=== PATIENT | female | born 1990 | race Two or more races ===

== ENCOUNTER → 2019-04-30 | Outpatient (REF) | payer OTHER ==
[2019-04-30 22:22] LABS: CHLAMYDIA DNA AMPLIFICATION NEGATIVE (NEGATIVE); GC DNA AMPLIFICATION NEGATIVE (NEGATIVE)
== END ==
LOC: M SFHCLERA 10:32
PROVIDERS: ATTEND Nurse Practitioner Family
DX: N89.8 Other specified noninflammatory disorders of vagina (principal)

== ENCOUNTER 2019-09-10 14:15 | Emergency (ER) | payer OTHER ==
[~2019-09-10] VITALS: Ht 157.5 cm; Wt 92.2 kg
[2019-09-10 14:15] VITALS: BP 129/73
[2019-09-10] MEDS ORDERED: IBUP-1114 PO (14:24)
[2019-09-10 17:20] LABS: BASO % 0.5 % (0.0-1.0); HEMATOCRIT 38.3 % (36.0-47.0); HEMOGLOBIN 11.7 g/dl (12.0-15.5); LYMPH # 2.2 10^3/uL (1.5-5.0); LYMPH % 38.2 % (24.0-44.0); MEAN CORPUSCULAR HEMOGLOBIN 23.6 pg (27.0-33.0); MEAN CORPUSCULAR HGB CONC 30.5 g/dl (32.0-36.5); MEAN CORPUSCULAR VOLUME 77.2 fl (80.0-96.0); MONO # 0.3 10^3/uL (0.0-0.8); MONO % 5.8 % (0.0-5.0); NEUTROPHILS # 3.1 10^3/uL (1.5-8.5); PLATELET COUNT, AUTOMATED 229 10^3/uL (150-450); RED BLOOD COUNT 4.96 10^6/uL (4.00-5.40); WHITE BLOOD COUNT 5.7 10^3/uL (4.0-10.0)
[2019-09-10 17:43] LABS: ERYTHROCYTE SEDIMENTATION RATE 11 mm/hr (0-20)
[2019-09-10 17:44] LABS: CK-MB VALUE MASS < 1.0 NG/ML (<3.6); CPK CREATINE PHOSPHOKINASE 101 U/L (26-192); MB/CK RELATIVE INDEX 0.99 (< OR =4); TROPONIN I < 0.02 NG/ML (< 0.10)
[2019-09-10 17:46] LABS: APPEARANCE, URINE HAZY (CLEAR); BACTERIA, URINE AUTO NEGATIVE (NEGATIVE); BILIRUBIN, URINE AUTO NEGATIVE (NEGATIVE); BLOOD, URINE BLOOD NEGATIVE (NEGATIVE); COLOR, URINE YELLOW (YELLOW); GLUCOSE, URINE (UA) AUTO NEGATIVE (NEGATIVE); KETONE, URINE AUTO NEGATIVE (NEGATIVE); LEUKOCYTE ESTERASE, URINE AUTO NEGATIVE (NEGATIVE); NITRITE, URINE AUTO NEGATIVE (NEGATIVE); PROTEIN, URINE AUTO NEGATIVE (NEGATIVE); RBC, URINE AUTO 2 /HPF (0-3); SPECIFIC GRAVITY URINE AUTO 1.012 (1.002-1.035); SQUAMOUS EPITHELIAL CELL UR AU 13 /HPF (0-6); UROBILINOGEN, URINE AUTO 0.2 mg/dL (0.0-2.0); WBC, URINE AUTO 1 /HPF (0-3)
[2019-09-10] MEDS ORDERED: NS 1,000 ML IV ONE (18:00)
[2019-09-10] MEDS ORDERED: KETOROLAC 30 MG/ML VIAL (J1885) IV ONE (18:00)
--- NOTE | 2019-09-10 18:13 | REP ---
PA and lateral chest: There are no comparisons. The lung escalante are clear. The cardiac size is normal. The izabela, mediastinum, and skeletal structures are unremarkable. Impression: Negative PA and lateral chest. Electronically Signed by Guille Narayan MD 09/10/2019 06:05 P
--- NOTE | 2019-09-10 20:06 | ECGEPIP ---
[facility] - ED Test Date: 2019-09-10 Pat Name: KEISHA BORJAS Department: Room: - Gender: Female Aircraft Refueler: : 1990 Requested By: Shawanda Wright Order Number: [id number] Reading MD: Pako Lam Measurements Intervals Nelson Rate: 67 P: 41 KS: 138 QRS: 66 QRSD: 86 T: 27 QT: 376 QTc: 398 Interpretive Statements SINUS RHYTHM NO PRIORS FOR COMPARISON Electronically Signed on 09-10-2019 20:05:49 EST by Pako Lam
== END 2019-09-10 20:15 | disposition home or self-care (01) ==
LOC: M ED 14:15
DX: R07.9 Chest pain, unspecified (principal); F41.9 Anxiety disorder, unspecified; R51 Headache; Z88.8 Allergy status to other drugs, medicaments and biological substances
CPT/HCPCS: 36415; 71046; 80047; 81001; 82550; 82553; 84484; 84702; 85025; 85652; 86140; 93005; 99284; J1885

== ENCOUNTER → 2019-10-13 | Outpatient (REF) | payer OTHER ==
[~2019-10-13] MED LIST: IBUP-1114 PO
[2019-10-14 13:08] LABS: CHLAMYDIA DNA AMPLIFICATION NEGATIVE (NEGATIVE); GC DNA AMPLIFICATION NEGATIVE (NEGATIVE)
== END ==
LOC: M SFHCLERA 19:51
PROVIDERS: ATTEND Nurse Practitioner Family
DX: N89.8 Other specified noninflammatory disorders of vagina (principal); R30.0 Dysuria
CPT/HCPCS: 81002; 81025; 87070; 87077; 87086; 87184; 87661; 87804; 96372; G0463; J0696

== ENCOUNTER → 2019-11-29 | Outpatient (CLI) | payer OTHER ==
--- NOTE | 2019-12-02 08:42 | SLEEPCENT ---
DATE OF PROCEDURE: 11/29/2019 ORDERED BY: MADIE Larios Nocturnal polysomnography was performed for evaluation of sleep physiology in this patient with a history of excessive somnolence, snoring, and nonrestorative sleep. 7 hours and 51 minutes of data were reviewed. There were 348 minutes of sleep identified. Sleep latency was normal at 8 minutes. Rapid eye movement (REM) latency was normal at 80 minutes. Sleep architecture was normal with four REM cycles. Overall sleep efficiency was 94.8%. The electrocardiogram showed a sinus rhythm with an average heart rate of 65 beats per minute. Rate ranged 55-80. Electroencephalogram (EEG) showed normal waveforms for awake and sleep. No focal events were identified. There were only five respiratory events identified of 10 seconds in duration or greater for an apnea-hypopnea index well within normal limits of 0.7. Snoring was noted particularly later in the study. Respiratory related arousals occurred 0.7 times per hour. There were no oxygen desaturations. The patient did display some limb activity but no trains of events. Limb movement arousal index was 7.7. IMPRESSION: Normal nocturnal polysomnography with snoring.
== END ==
LOC: M SLEEP 20:00
PROVIDERS: ATTEND Physician Assistant
DX: R06.83 Snoring (principal)

== ENCOUNTER → 2020-02-06 | Outpatient (CLI) | payer OTHER | LOC: M LABSMTC 14:03 | PROVIDERS: ATTEND Family Medicine | DX: Z03.818 Encounter for observation for suspected exposure to other biological agents ruled out (principal); Z11.59 Encounter for screening for other viral diseases | CPT/HCPCS: C9803; U0003 ==

== ENCOUNTER 2020-03-23 15:20 | Emergency (ER) | payer OTHER ==
[2020-03-23] MEDS ORDERED: KETOROLAC 30 MG/ML 1ML VIAL ONE (18:00)
[2020-03-23] MEDS ORDERED: ISOVUE-370 76% 100ML VIAL As Ordered ONE (18:06)
[2020-03-23] MEDS ORDERED: KETOROLAC 30 MG/ML 1ML VIAL As Ordered ONE (18:06)
[2020-04-20 16:07] LABS: BASO % 0.5 % (0.0-1.0); HEMATOCRIT 34.4 % (36.0-47.0); HEMOGLOBIN 10.3 g/dl (12.0-15.5); LYMPH # 2.1 10^3/uL (1.5-5.0); LYMPH % 32.9 % (24.0-44.0); MEAN CORPUSCULAR HEMOGLOBIN 23.7 pg (27.0-33.0); MEAN CORPUSCULAR HGB CONC 29.9 g/dl (32.0-36.5); MEAN CORPUSCULAR VOLUME 79.1 fl (80.0-96.0); MONO # 0.5 10^3/uL (0.0-0.8); MONO % 7.4 % (0.0-5.0); NEUTROPHILS # 3.8 10^3/uL (1.5-8.5); NEUTROPHILS % 58.9 % (36.0-66.0); PLATELET COUNT, AUTOMATED 212 10^3/uL (150-450); RED BLOOD COUNT 4.35 10^6/uL (4.00-5.40); WHITE BLOOD COUNT 6.4 10^3/uL (4.0-10.0)
[2020-05-05 07:48] LABS: ALBUMIN 3.8 GM/DL (3.2-5.2); ALT/SGPT 19 U/L (12-78); BILIRUBIN,DIRECT < 0.1 MG/DL (0.0-0.2); BILIRUBIN,TOTAL 0.3 MG/DL (0.2-1.0); BLOOD UREA NITROGEN 12 MG/DL (7-18); CALCIUM LEVEL 8.5 MG/DL (8.5-10.1); CARBON DIOXIDE LEVEL 30 MEQ/L (21-32); CHLORIDE LEVEL 106 MEQ/L (98-107); CREATININE FOR GFR 0.67 MG/DL (0.55-1.30); GLOMERULAR FILTRATION RATE > 60.0 (>60); GLUCOSE, FASTING 86 MG/DL (70-100); HCG, SERUM QUALITATIVE NEGATIVE (NEGATIVE); LIPASE 144 U/L (73-393); POTASSIUM SERUM 3.7 MEQ/L (3.5-5.1); SODIUM LEVEL 138 MEQ/L (136-145)
== END 2020-03-23 19:06 | disposition home or self-care (01) ==
LOC: M ED 15:20
DX: N83.202 Unspecified ovarian cyst, left side (principal); D64.9 Anemia, unspecified; M48.061 Spinal stenosis, lumbar region without neurogenic claudication; Z88.8 Allergy status to other drugs, medicaments and biological substances
CPT/HCPCS: 74177; 76856; 80048; 80076; 83690; 84703; 85025; 96374; 99284; J1885; Q9967

== ENCOUNTER 2020-05-28 15:40 | Emergency (ER) | payer OTHER ==
[~2020-05-28] VITALS: Ht 154.9 cm; Wt 81.3 kg
[2020-05-28] MEDS ORDERED: B-12100010 PO (15:48)
[2020-05-28] MEDS ORDERED: ASPIRIN 81 MG CHEW TABLET PO ONE (17:30)
[2020-05-28] MEDS ORDERED: NS 1,000 ML IV ONE (17:30)
--- NOTE | 2020-05-28 18:01 | REPVR ---
PROCEDURE INFORMATION: Exam: XR Chest, 1 View Exam date and time: 05/28/2020 5:46 PM Age: 30 years old Clinical indication: Chest pain TECHNIQUE: Imaging protocol: XR of the chest Views: Frontal portable sitting upright view of the chest. Abdominal shielding was used. COMPARISON: RI Chest, 2 view PA, Lat 09/10/2019 5:55 PM FINDINGS: Tubes, catheters and devices: EKG leads are present overlying the chest. Lungs: The lungs are clear bilaterally. The pulmonary vasculature is normal. Pleural space: No pleural effusion. No pneumothorax. Heart/Mediastinum: The heart is normal in size and contour. Mediastinum: Stable. Bones/joints: Stable. IMPRESSION: No acute cardiopulmonary abnormality identified. Electronically signed by: Michael Bryant On 05/28/2020 18:01:03 PM
[2020-05-28 18:13] LABS: BASO % 0.3 % (0.0-1.0); HEMATOCRIT 35.8 % (36.0-47.0); HEMOGLOBIN 10.7 g/dl (12.0-15.5); LYMPH # 1.9 10^3/uL (1.5-5.0); LYMPH % 28.4 % (24.0-44.0); MEAN CORPUSCULAR HEMOGLOBIN 23.1 pg (27.0-33.0); MEAN CORPUSCULAR HGB CONC 29.9 g/dl (32.0-36.5); MEAN CORPUSCULAR VOLUME 77.3 fl (80.0-96.0); MONO # 0.3 10^3/uL (0.0-0.8); NEUTROPHILS # 4.5 10^3/uL (1.5-8.5); PLATELET COUNT, AUTOMATED 233 10^3/uL (150-450); RED BLOOD COUNT 4.63 10^6/uL (4.00-5.40); WHITE BLOOD COUNT 6.8 10^3/uL (4.0-10.0)
[2020-05-28 18:29] LABS: INR 0.98; PROTHROMBIN TIME 13.2 SECONDS (12.5-14.3)
[2020-05-28 18:41] LABS: ALBUMIN 3.6 GM/DL (3.2-5.2); ALT/SGPT 20 U/L (12-78); BILIRUBIN,DIRECT 0.1 MG/DL (0.0-0.2); BILIRUBIN,TOTAL 0.2 MG/DL (0.2-1.0); BLOOD UREA NITROGEN 11 MG/DL (7-18); CALCIUM LEVEL 8.5 MG/DL (8.5-10.1); CARBON DIOXIDE LEVEL 25 MEQ/L (21-32); CHLORIDE LEVEL 109 MEQ/L (98-107); CK-MB VALUE MASS < 1.0 NG/ML (<3.6); CPK CREATINE PHOSPHOKINASE 72 U/L (26-192); CREATININE FOR GFR 0.62 MG/DL (0.55-1.30); GLOMERULAR FILTRATION RATE > 60.0 (>60); GLUCOSE, FASTING 76 MG/DL (70-100); MB/CK RELATIVE INDEX 1.39 (< OR =4); POTASSIUM SERUM 4.2 MEQ/L (3.5-5.1); SODIUM LEVEL 139 MEQ/L (136-145); TOTAL PROTEIN 7.6 GM/DL (6.4-8.2); TROPONIN I < 0.02 NG/ML (< 0.10)
[2020-05-28 19:52] VITALS: BP 153/70
--- NOTE | 2020-05-29 06:42 | ECGEPIP ---
[facility] - ED Test Date: 2020-05-28 Pat Name: KEISHA BORJAS Department: Room: - Gender: Female Catering And Events Manager: jaison : 1990 Requested By: JHONATAN Juárez Order Number: [id number] Reading MD: Pako Lam Measurements Intervals Stella Rate: 73 P: 48 MI: 142 QRS: 61 QRSD: 86 T: 28 QT: 384 QTc: 425 Interpretive Statements SINUS RHYTHM POOR R WAVE PROGRESSION SIMILAR TO 09/10/19 Electronically Signed on 05-29-2020 6:42:11 EDT by Pako Lam
== END 2020-05-28 19:54 | disposition home or self-care (01) ==
LOC: M ED 15:40
DX: R00.2 Palpitations (principal); R25.2 Cramp and spasm; R20.2 Paresthesia of skin; R07.89 Other chest pain; G43.909 Migraine, unspecified, not intractable, without status migrainosus; Z88.8 Allergy status to other drugs, medicaments and biological substances; Z79.899 Other long term (current) drug therapy

== ENCOUNTER 2020-09-18 03:13 | Emergency (ER) | payer OTHER ==
[~2020-09-18] VITALS: Ht 154.9 cm; Wt 80.0 kg
[~2020-09-18 03:13] MED LIST changes: +B-12100010 PO
--- OUTSIDE RECORDS SUMMARY | 2020-09-18 03:19 | CCD ---
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 Active 294523255 Problem PCOS (polycystic ovarian syndrome) E28.2 Activ e [id number] ALLERGIES Allergen (clinical drug ingredient) Drug/Non Drug Allergy do cumented on EMR Reaction Allergy Type Onset Date Status diphenhydramine Benadryl([facility] Code:[address]-22) rash Drug Jimbo rgy Active ENCOUNTERS from 1990 to 2020-09-11 Encounter Location Date Provider Diagnosis [facility] [address] [place] [address] Aug, Luisa Fuchs IMMUNIZATIONS Vaccine Route Administration Date Status Influenza (18 yrs & older) Flublok IM Intramuscular Jun 09, 2019 Administered SOCIAL HISTORY Tobacco Use: Social History Observation Description Date Details (start date - stop date) Never Smoker Sex Assigned At : Social History Observation Description Sex Assigned At Unknown Education: Question Answer Notes Level of Education: College Audit Question Answer Notes Total Score: 0 Interpretation: Alcohol Education Language: Question Answer Notes Languages spoken: Danish Samaritan: Question Answer Notes Samaritan 33 None Sexual Hx: Question Answer Notes Had sex in the last 12 months (vaginal, oral, or anal)? Yes Have you ever had an STD? No with Men only Use protection? No Drug and Alcohol Question Answer Notes Total Score: 0 Interpretation: No problems reported Alcohol Screening: Question Answer Notes Did you have a drink containing alcohol in the past year? No Points 0 Interpretation Negative BMI Care Goal Follow-Up Question Answer Notes Above Normal BMI Follow-Up Dietary management educatio n, guidance, and counseling, Dietary needs education Tobacco Use: Question Answer Notes Are you a: never smoker REASON FOR REFERRAL No Information VITAL SIGNS No information MEDICATIONS Medication SIG (Take, Route, Frequency, Duration) Notes Start Da te End Date Status Letrozole 2.5 MG TAKE 2 TABLETS BY MOUTH ONCE DAILY 5 DAY S A MONTH Oral for 28 Active MetFORMIN HCl ER 500 MG TAKE 1 TABLET BY MOUTH ONCE DAILY INCREASE WEEKLY BY 500MG TO A MAX OF 2000 MG Oral for 30 Active PROCEDURES No Information RESULTS No Results REASON FOR VISIT note for work MEDICAL (GENERAL) HISTORY Type Description Date Surgical History 2 - c-sections Goals Section No Information Health Concerns No Information MEDICAL EQUIPMENT No Information MENTAL STATUS No Information FUNCTIONAL STATUS No Information ASSESSMENTS No Information PLAN OF TREATMENT No Information Insurance Providers Payer Name Payer Address Payer Phone Insured Name Patient Relati onship to Insured Coverage Start Date Coverage End Date [place] [phone] [phone] KEISHA BORJAS self
--- OUTSIDE RECORDS SUMMARY | 2020-09-18 03:19 | CCD | Continuity of Care Document ---
Author Author Mao HOLLOWAY M.D. Organization Unknown Address [address] [place] [address] Phone [phone] Problems Active Problems Provider Date Polycystic ovary syndrome Bharti Campoverde NP Onset: 020 Social History Type Date Description Comments Sex Unknown Tobacco Use Start: Unknown Never Smoked Cigarettes Tobacco Use Start: Unknown Never Smoked Cigars Tobacco Use Start: Unknown Never Smoked A Pipe Tobacco Use Start: Unknown Never Used Smokeless Tobacco ETOH Use Denies alcohol use Tobacco Use Start: Unknown Patient has never smoked Recreational Drug Use Denies Drug Use Allergies, Adverse Reactions, Alerts Active Allergies Reaction Severity Comments Date Benadryl Hives Moderate 05/22/2019 NKFA 05/22/2019 NKEA 05/22/2019 Medications Active Medications SIG Qnty Indications Ordering Provide r Date No Active Medications Unknown No Active Medications Unknown - 06/03/2020 History Medications Bactrim DS 800-160mg Tablets 1 tab by mouth twice a day x 3days. 6tabs Esperanza Alvarado 06/03/2020 - 07/06/2020 Pyridium 200mg Tablets 1 tab by mouth 3x/day x 2days 6tabs Ozzy Holloway M.D. 06/03/20 - 07/06/2020 Metronidazole 500mg Tablets one tab by mouth twice daily for 7 days 14tabs N76.0 Ozzy Holloway M.D. 04/01/2020 - 04/08/2020 Fluconazole 150mg Tablets take 1 by mouth once on days 1, 3 and 7 #3 3tabs B37.3 Esperanza Alvarado 04/01/2020 - 06/03/2020 Sprintec 28 0.25-35mg-mcg Tablets 1 by mouth every day 84tabs N83.202 Ozzy Holloway M.D. 03/24/20 20 - 06/03/2020 No Active Medications Unknown - 03/11/2020 Cleocin 2% Cream 1 applicator in vagina at bedtime x 7 days 40gm N76.0 Ozzy Holloway M.D. 020 - 03/24/2020 Immunizations CPT Code Status Date Vaccine Lot # [id number] Given 03/11/2020 HPV9 (Gardasil 9) Vaccine R0 11410 87055 Given 10/24/2019 HPV9 (Gardasil 9) Vaccine R0 [id number] 32128 Given 07/28/2019 HPV9 (Gardasil 9) Vaccine R0 22701 Vital Signs Date Vital Result Comment 07/06/2020 3:48pm BP Systolic 122 mmHg BP Diastolic 82 mmHg Heart Rate 80 /min Body Temperature 96.2 F Weight 179.00 lb Weight 81.194 kg Height 62 inches 5'2" BMI (Body Mass Index) 32.7 kg/m2 BSA (Body Surface Area) 1.82 m2 06/03/2020 3:45pm BP Systolic 116 mmHg BP Diastolic 66 mmHg Heart Rate 72 /min Body Temperature 97.7 F Weight 177.00 lb Weight 80.287 kg Height 62 inches 5'2" BMI (Body Mass Index) 32.4 kg/m2 BSA (Body Surface Area) 1.81 m2 Results Test Acquired Date Facility Test Result H/L Range Note Cuture Urine 06/03/2020 [facility] Culture Urine (SEE NOTE) 1, 2 Order 04/01/2020 In Office [facility] + clue, hyphae HCG Serum Qual 03/12/2020 [facility] HCG Serum Qual NEGATIVE Normal: Negative HCG Serum QL Reenter NEGATIVE Normal: Negative 3 Order 03/11/2020 [facility] Office [facility] ++clue 1 {SPECIMEN TYPE: RANDOM~.~.~ R31.9 2 _CULTURE URINE_ ^$798149 ^^170084 $$990283 ^^078209 $$900406 $$979437 $$164211 $$278076 $$551279 $$179774 $$815739 $$373399 $$858275 $$918701 $$931558 $$689084 $$430137 $$145353 $$000163 $$335919 $$042304 $$500334 $$070529 $$190652 $$062907 $$434899 $$442120 ^^073395 $$095971 $$701954 $$257178 -- Continued on next page -- Patient: INDIO Zamudio Order: [id number] Page 2 Culture: CULTURE URINE Status: Final -- Continued on next page -- Patient: INDIO Zamudio Order: [id number] Page 2 Culture: CULTURE URINE Status: Prelim $$[id number] $$[id number] REPORTED DATE/TIME: 06/09/2020 09:06 Culture: CULTURE URINE Status: Final Isolate 1 Lactobacillus species Flag: . . . . . . .4 10,000-25,000 colony forming units per m L Susceptibility not normally performed on this organism. Previous result entered on 06/06/2020 06:45 ET Specimen has been received and testing has been initiated. Urine Culture,Comprehensive: P1 Lactobacillus species P1 Test performed by: [facility] Ramón VALENTIN #: [id number] [address] [place] [address] [id number] [facility] [address] Shake Maker : Stewart Ruiz MD NPI #: Spring Setter : 06/07/20.XMT.SENT REF 06/09/20.XMT.SENT REF 3 { KIT LOT # [id number] ) { KIT EXP DATE 06.01.21 ) { PROCEDURAL CONTROL VALID ) Procedures Description No Information Available Medical Devices Description No Information Available Encounters Type Date Location Provider Dx Diagnosis Office Visit 07/06/2020 3:45p [facility] Ozzy Walter M.D. Z01.419 Encntr for adventure education teacher exam (general) (routine) w/o abn findings Assessments Date Code Description Provider 07/06/2020 Z01.419 Encounter for gyneco logical examination (general) (routine) without abnormal findings Ozzy Holloway M.D. 06/03/2020 R30.0 Dysuria Ozzy etienne M.D. 04/01/2020 N76.0 Acute vaginitis Bharti O'golden, PMO PROJECT MANAGER 04/01/2020 B37.3 Candidiasis of vulva and vagina Bharti O'golden, PMO PROJECT MANAGER 03/24/2020 N83.202 Unspecified ovarian cyst, left s alexander Bharti O'golden, PMO PROJECT MANAGER 03/11/2020 N76.0 Acute vaginitis Bharti O'golden, PMO PROJECT MANAGER 03/11/2020 R10.2 Pelvic and perineal pain Bharti O' golden, MACO Plan of Treatment 07/06/2020 - Ozzy Holloway M.D.* Z01.419 Encounter for gynecological examination (general) (routine) without abnormal findings * All * New Medication:* No Active Medications - * - * Comments:* Patient is to take letrozole 5 mg instead of 2.5 mg. She is to take metformin 500 mg for 7 days, increase it to 1000 mg and then to 1500 mg and to try to reach a maximum dose of 2000 mg, but we instructed her to gradually decrease her metformin if she cannot tolerate the dosage. * Follow up:* Follow up in a month. Functional Status Description No Information Available Mental Status Description No Information Available Referrals Description No Information Available
--- OUTSIDE RECORDS SUMMARY | 2020-09-18 03:19 | CCD | Continuity of Care Document ---
Author Author Mao HOLLOWAY M.D. Organization Unknown Address [address] [place] [address] Phone [phone] Problems Active Problems Provider Date Polycystic ovary [...] SIG Qnty Indications Ordering Provide r Date Metformin HCL ER 500mg Tablets ER 24HR 500mg by mouth daily increase weekly by 500mg to a max of 2000mg by mouth daily. 120tabs Ozzy Holloway M.D. 07/06/20 20 Letrozole 2.5mg Tablets 2 tab by mouth daily x 5 days/ month 10tabs Ozzy Holloway M.D. Provera 10mg Tablets 1 tab by mouth daily x 5days 5tabs Ozzy Holloway M.D. 07/06/20 20 History Medications No Active Medications Unknown - 07/06/2020 No Active Medications Unknown - 06/03/2020 Bactrim DS 800-160mg Tablets 1 tab by mouth twice a day x 3days. 6tabs Esperanza Alvarado 06/03/2020 - 07/06/2020 Pyridium 200mg Tablets 1 tab by mouth 3x/day x 2days 6tabs Ozzy Holloway M.D. 06/03/20 20 - 07/06/2020 Metronidazole 500mg Tablets one tab [...] at bedtime x 7 days 40gm N76.0 zOzy Holloway M.D. 020 - 03/24/2020 Immunizations CPT Code Status Date Vaccine Lot # [id number] Given 03/11/2020 HPV9 (Gardasil 9) Vaccine R0 01709 59080 Given 10/24/2019 HPV9 (Gardasil 9) Vaccine R0 72707 98134 Given 07/28/2019 HPV9 (Gardasil 9) Vaccine R0 75255 Vital Signs Date Vital Result Comment 09/02/2020 4:57pm BP Systolic 114 mmHg BP Diastolic 82 mmHg Heart Rate 73 /min Body Temperature 96.9 F Weight 185.00 lb Weight 83.916 kg Height 62 inches 5'2" BMI (Body Mass Index) 33.8 kg/m2 BSA (Body Surface Area) 1.85 m2 07/06/2020 3:48pm BP Systolic 122 mmHg BP Diastolic 82 mmHg Heart Rate 80 /min Body Temperature 96.2 F Weight 179.00 lb Weight 81.194 kg Height 62 inches 5'2" BMI (Body Mass Index) 32.7 kg/m2 BSA (Body Surface Area) 1.82 m2 Results Test Acquired Date Facility Test Result H/L Range Note HCG Serum Qual 08/04/2020 [facility] HCG Serum Qual NEGATIVE Normal: Negative 1 HCG Serum QL Reenter NEGATIVE Normal: Negative 2 Laboratory test finding 08/04/2020 [facility] Progesterone 2.6 ng/mL 3 Chlamydia GC/Am 07/06/2020 [facility] Source: Random Void 4 Chlamydia trachomatis,Tracee Negative Negative Neisseria gonorrhoeae,Tracee Negative Negative Cuture Urine 06/03/2020 [facility] Culture Urine (SEE NOTE) 5, 6 Order 04/01/2020 In Office [facility] [place] + clue, hyphae HCG Serum Qual 03/12/2020 [facility] HCG Serum Qual NEGATIVE Normal: Negative HCG Serum QL Reenter NEGATIVE Normal: Negative 7 Order 03/11/2020 [facility] ++clue 1 .~.~<DG1.3.1>Z01.419</DG1.3. 1><DG1.3.1>Z01.419</DG1.3.1> 2 { KIT LOT # [id number] ) { KIT EXP DATE 05.25.21 ) { PROCEDURAL CONTROL VALID ) 3 Follicular phase 0.1 - 0.9 Luteal phase 1.8 - 23.9 Ovulation phase 0.1 - 12.0 First trimester 11.0 - 44.3 Second trimester 25.4 - 83.3 Third trimester 58.7 - 214.0 Postmenopausal 0.0 - 0.1 4 {SOURCE: Random Void 5 {SPECIMEN TYPE: RANDOM~.~.~ R31.9 6 _CULTURE URINE_ ^$628356 ^^259822 $$230716 ^^702572 $$955360 $$565477 $$030548 $$340157 $$641316 $$643791 $$388712 $$706105 $$734078 $$208327 $$779593 $$159509 $$531552 $$137506 $$582749 $$476467 $$446751 $$737684 $$522954 $$309728 $$711820 $$930405 $$081330 ^^705814 $$047791 $$612193 $$486998 -- Continued on next page -- Patient: INDIO Zamudio Order: [id number] Page 2 Culture: CULTURE URINE Status: Final -- Continued on next page -- Patient: INDIO Zamudio Order: [id number] Page 2 Culture: CULTURE URINE Status: Prelim $$[id number] $$[id number] REPORTED DATE/TIME: 06/09/2020 09:06 Culture: CULTURE URINE Status: Final Isolate 1 Lactobacillus species Flag: . . . . . . .4 10,000-25,000 colony forming units per m L Susceptibility not normally performed on this organism. Previous result entered on 06/06/2020 06:45 ET Specimen has been received and testing has been initiated. Urine Culture,Comprehensive: P1 Lactobacillus species P1 Test performed by: [facility] #: [id number] [address] [place] [address] [id number] [facility] [address] Salvage Diver : Stewart Ruiz MD NPI #: Carpenter Wooden Tank Erecting : 06/07/20.0623.XMT.SENT REF 06/09/20.0933.XMT.SENT REF 7 { KIT LOT # [id number] ) { KIT EXP DATE 06.01.21 ) { PROCEDURAL CONTROL VALID ) Procedures Description No Information Available Medical Devices Description No Information Available Encounters Type Date Location Provider Dx Diagnosis Office Visit 09/02/2020 4:15p [facility] Ozzy Walter M.D. E28.2 Polycystic ovarian syndrome N97.9 Female infertility, unspecif ied Assessments Date Code Description Provider 09/02/2020 E28.2 Polycystic ovarian syndrome Mohit Holloway M.D. 09/02/2020 N97.9 Female infertility, unspecified Ozzy Holloway M.D. 07/06/2020 Z01.419 Encounter for gyneco logical examination (general) (routine) without abnormal findings Ozzy Holloway M.D. 06/03/2020 R30.0 Dysuria Ozzy etienne M.D. 04/01/2020 N76.0 Acute vaginitis Bharti O'golden, DISTRIBUTION MANAGER 04/01/2020 B37.3 Candidiasis of vulva and vagina Bharti O'golden, DISTRIBUTION MANAGER 03/24/2020 N83.202 Unspecified ovarian cyst, left s alexander Bharti O'golden, DISTRIBUTION MANAGER 03/11/2020 N76.0 Acute vaginitis Bharti O'golden, DISTRIBUTION MANAGER 03/11/2020 R10.2 Pelvic and perineal pain Bharti franks NP Plan of Treatment 09/02/2020 - Ozzy Holloway M.D.* E28.2 Polycystic ovarian syndrome * N97.9 Female infertility, unspecified * All * Comments:* Patient is advised to have intercourse from day #10 to day #16 and from day #20 to day #26 every day or every other day to increase the chances of her getting . She is to try and increase the metformin dose from 500 mg to 1000 mg, if she cannot tolerate the dosage she is to go back to 500 mg. Patient is to follow up in 3 months and if she is not by then we will consider hysterosalpingogram and semen analysis on her . * Follow up:* Follow up in 3 months. Functional Status Description No Information Available Mental Status Description No Information Available Referrals Description No Information Available
--- OUTSIDE RECORDS SUMMARY | 2020-09-18 03:19 | CCD | Continuity of Care Document ---
Author Author Mao HOLLOWAY M.D. Organization Unknown Address [address] [place] [address] Phone [phone] Problems Active Problems Provider Date Polycystic ovary [...] CPT Code Status Date Vaccine Lot # [id number] Given 03/11/2020 HPV9 (Gardasil 9) Vaccine R0 80186 95149 Given 10/24/2019 HPV9 (Gardasil 9) Vaccine R0 20740 90405 Given 07/28/2019 HPV9 (Gardasil 9) Vaccine R0 63428 Vital Signs Date Vital Result Comment 09/02/2020 [...] H/L Range Note HCG Serum Qual 08/04/2020 [facility] HCG Serum Qual NEGATIVE Normal: Negative 1 HCG Serum QL Reenter NEGATIVE Normal: Negative 2 Laboratory test finding 08/04/2020 [facility] Progesterone 2.6 ng/mL 3 Chlamydia GC/Am 07/06/2020 [facility] Source: Random Void 4 Chlamydia trachomatis,Tracee Negative Negative Neisseria gonorrhoeae,Tracee Negative Negative Cuture Urine 06/03/2020 [facility] Culture Urine (SEE NOTE) 5, 6 Order 04/01/2020 In Office [facility]house [facility] [place] + clue, hyphae HCG Serum Qual 03/12/2020 [facility] HCG Serum Qual NEGATIVE Normal: Negative HCG Serum QL Reenter NEGATIVE Normal: Negative 7 Order 03/11/2020 [facility] Office [facility] [place] ++clue 1 .~.~<DG1.3.1>Z01.419</DG1.3. 1><DG1.3.1>Z01.419</DG1.3.1> 2 { KIT LOT # [id number] ) { KIT EXP DATE 05.25.21 ) { PROCEDURAL CONTROL VALID ) 3 Follicular phase 0.1 - 0.9 Luteal phase 1.8 - 23.9 Ovulation phase 0.1 - 12.0 First trimester 11.0 - 44.3 Second trimester 25.4 - 83.3 Third trimester 58.7 - 214.0 Postmenopausal 0.0 - 0.1 4 {SOURCE: Random Void 5 {SPECIMEN TYPE: RANDOM~.~.~ R31.9 6 _CULTURE URINE_ ^$385584 ^^057996 $$887489 ^^582212 $$773088 $$378824 $$460021 $$143785 $$265086 $$988865 $$093804 $$890994 $$152206 $$563615 $$515792 $$906231 $$460252 $$752173 $$720145 $$772873 $$375277 $$994138 $$072604 $$912410 $$422191 $$208113 $$961946 ^^779648 $$394667 $$493138 $$294494 -- Continued on next page -- Patient: INDIO Zamudio Order: [id number] Page 2 Culture: CULTURE URINE Status: Final -- Continued on next page -- Patient: INDIO Zamudio Order: [id number] Page 2 Culture: CULTURE URINE Status: Prelim $$[id number] $$[id number] REPORTED DATE/TIME: 06/09/2020 09:06 Culture: CULTURE URINE Status: Final Isolate 1 Lactobacillus species Flag: . . . . . . .4 10,000-25,000 colony forming units per m L Susceptibility not normally performed on this organism. Previous result entered on 06/06/2020 06:45 ET Specimen has been received and testing has been initiated. Urine Culture,Comprehensive: P1 Lactobacillus species P1 Test performed by: [facility] #: [id number] [address] [place] [id number] [facility] [address] Wealth Management Manager : Stewart Ruiz MD NPI #: Business Analytics Faculty Member : 06/07/20.0623.XMT.SENT REF 06/09/20.0933.XMT.SENT REF 7 { KIT LOT # [id number] ) { KIT EXP DATE 06.01.21 ) [...] M.D. 04/01/2020 N76.0 Acute vaginitis Bharti O'golden, OPTIONS TRADER 04/01/2020 B37.3 Candidiasis of vulva and vagina Bharti O'golden, OPTIONS TRADER 03/24/2020 N83.202 Unspecified ovarian cyst, left s alexander Bharti O'golden, OPTIONS TRADER 03/11/2020 N76.0 Acute vaginitis Bharti O'golden, OPTIONS TRADER 03/11/2020 R10.2 Pelvic and perineal pain Bharti farnks NP Plan of Treatment 09/02/2020 - Ozzy [...]
--- OUTSIDE RECORDS SUMMARY | 2020-09-18 03:19 | CCD | Continuity of Care Document ---
Author Author Mao HOLLOWAY M.D. Organization Unknown Address [address] [place] [id number] Phone [phone] Problems Active Problems Provider Date Polycystic ovary [...] twice a day x 3days. 6tabs Esperanza lAvarado 06/03/2020 - 07/06/2020 Pyridium 200mg Tablets 1 [...] CPT Code Status Date Vaccine Lot # [id number] Given 03/11/2020 HPV9 (Gardasil 9) Vaccine R0 [id number] Given 10/24/2019 HPV9 (Gardasil 9) Vaccine R0 [id number] Given 07/28/2019 HPV9 (Gardasil 9) Vaccine R0 [id number] Vital Signs Date Vital Result Comment 07/06/2020 [...] H/L Range Note HCG Serum Qual 08/04/2020 [facility] HCG Serum Qual NEGATIVE Normal: Negative 1 HCG Serum QL Reenter NEGATIVE Normal: Negative 2 Laboratory test finding 08/04/2020 [facility] l Progesterone 2.6 ng/mL 3 Chlamydia GC/Am 07/06/2020 [facility] Source: Random Void 4 Chlamydia trachomatis,Tracee Negative Negative Neisseria gonorrhoeae,Tracee Negative Negative Cuture Urine 06/03/2020 [facility] Culture Urine (SEE NOTE) 5, 6 Order 04/01/2020 In Office [facility] [place] + clue, hyphae HCG Serum Qual 03/12/2020 [facility] HCG Serum Qual NEGATIVE Normal: Negative HCG Serum QL Reenter NEGATIVE Normal: Negative 7 Order 03/11/2020 In Office [facility] [place] ++clue 1 .~.~<DG1.3.1>Z01.419</DG1.3. 1><DG1.3.1>Z01.419</DG1.3.1> 2 { KIT LOT # [id number] ) { KIT EXP DATE 05.25.21 ) { PROCEDURAL CONTROL VALID ) 3 Follicular phase 0.1 - 0.9 Luteal phase 1.8 - 23.9 Ovulation phase 0.1 - 12.0 First trimester 11.0 - 44.3 Second trimester 25.4 - 83.3 Third trimester 58.7 - 214.0 Postmenopausal 0.0 - 0.1 4 {SOURCE: Random Void 5 {SPECIMEN TYPE: RANDOM~.~.~ R31.9 6 _CULTURE URINE_ ^$709596 ^^967433 $$015169 ^^614907 $$281544 $$554935 $$271284 $$967325 $$554883 $$536271 $$669657 $$381150 $$901777 $$379219 $$091655 $$375626 $$180918 $$534738 $$162961 $$625618 $$441363 $$634244 $$258338 $$776089 $$271980 $$242444 $$500189 ^^119950 $$559217 $$642872 $$348029 -- Continued on next page -- Patient: INDIO Zamudio Order: [id number] Page 2 Culture: CULTURE URINE Status: Final -- Continued on next page -- Patient: INDIO Zamudio Order: [id number] Page 2 Culture: CULTURE URINE Status: Prelim $$[id number] $$[id number] REPORTED DATE/TIME: 06/09/2020 09:06 Culture: CULTURE URINE Status: Final Isolate 1 Lactobacillus species Flag: . . . . . . .4 10,000-25,000 colony forming units per m L Susceptibility not normally performed on this organism. Previous result entered on 06/06/2020 06:45 ET Specimen has been received and testing has been initiated. Urine Culture,Comprehensive: P1 Lactobacillus species P1 Test performed by: [facility] #: [id number] [address] [place] [id number] [facility] [id number] [employer] : Stewart Ruiz MD NPI #: Trouble Locater : 06/07/20.23.XMT.SENT REF 06/09/2033.XMT.SENT REF 7 { KIT LOT # [id number] ) { KIT EXP DATE 06.01.21 ) { PROCEDURAL CONTROL VALID ) Procedures Description No Information Available Medical Devices Description No Information Available Encounters Description No Information Available Assessments Date Code Description Provider 07/06/2020 Z01.419 Encounter for gyneco logical examination (general) (routine) without abnormal findings Ozzy Holloway M.D. 06/03/2020 R30.0 Dysuria Ozzy etienne M.D. 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 Functional Status Description No Information Available Mental Status Description No Information Available Referrals Description No Information Available
--- OUTSIDE RECORDS SUMMARY | 2020-09-18 03:20 | CCD ---
Author Author [facility] Organization [facility] Address Unknown Phone Unavailable Care Team Providers Care Advertising Intern Name Role Phone Lizz PACHECO MD Unavailable Unavailable Lizz PACHECO MD Unavailable Unavailable Lizz PACHECO MD Unavailable Unavailable Lizz PACHECO MD Unavailable Unavailable Lizz PACHECO MD Unavailable Unavailable Lizz PACHECO MD Unavailable Unavailable Lizz PACHECO MD Unavailable Unavailable Lizz PACHECO MD Unavailable Unavailable Lizz PACHECO MD Unavailable Unavailable Lizz PACHECO MD Unavailable Unavailable Lizz PACHECO MD Unavailable Unavailable Lizz PACHECO MD Unavailable Unavailable Lizz PACHECO MD Unavailable Unavailable Lizz PACHECO MD Unavailable Unavailable Lizz PACHECO MD Unavailable Unavailable Lizz PACHECO MD Unavailable Unavailable Lizz PACHECO MD Unavailable Unavailable Lizz PACHECO MD Unavailable Unavailable Lizz PACHECO MD Unavailable Unavailable Lizz PACHECO MD Unavailable Unavailable Lizz PACHECO MD Unavailable Unavailable Lizz PACHECO MD Unavailable Unavailable Lizz PACHECO MD Unavailable Unavailable Lizz PACHECO MD Unavailable Unavailable Lizz PACHECO MD Unavailable Unavailable Lizz PACHECO MD Unavailable Unavailable Lizz PACHECO MD Unavailable Unavailable JEWEL, F AVTAR MD Unavailable Unavailable JEWEL, F AVTAR MD Unavailable Unavailable JEWEL, F AVTAR MD Unavailable Unavailable JEWEL, F AVTAR MD Unavailable Unavailable JEWEL, F AVTAR MD Unavailable Unavailable JEWEL, F AVTAR MD Unavailable Unavailable JEWEL, F AVTAR MD Unavailable Unavailable JEWEL, F AVTAR MD Unavailable Unavailable JEWEL, F AVTAR MD Unavailable Unavailable JEWEL, F AVTAR MD Unavailable Unavailable JEWEL, F AVTAR MD Unavailable Unavailable JEWEL, F AVTAR MD Unavailable Unavailable JEWEL, F AVTAR MD Unavailable Unavailable JEWEL, F AVTAR MD Unavailable Unavailable JEWEL, F AVTAR MD Unavailable Unavailable JEWEL, F AVTAR MD Unavailable Unavailable JEWEL, F AVTAR MD Unavailable Unavailable JEWEL, F AVTAR MD Unavailable Unavailable JEWEL, F AVTAR MD Unavailable Unavailable JEWEL, F AVTAR MD Unavailable Unavailable JEWEL, F AVTAR MD Unavailable Unavailable JEWEL, F AVTAR MD Unavailable Unavailable JEWEL, F AVTAR MD Unavailable Unavailable JEWEL, F AVTAR MD Unavailable Unavailable JEWEL, F AVTAR MD Unavailable Unavailable JEWEL, F AVTAR MD Unavailable Unavailable JEWEL, F AVTAR MD Unavailable Unavailable SAUCEDA, FORD YOVANA COUNTER INSTALLER Unavailable Unavailable SAUCEDA, FORD YOVANA COUNTER INSTALLER Unavailable Unavailable SAUCEDA, FORD YOVANA COUNTER INSTALLER Unavailable Unavailable SAUCEDA, FORD YOVANA COUNTER INSTALLER Unavailable Unavailable SAUCEDA, FORD YOVANA COUNTER INSTALLER Unavailable Unavailable SAUCEDA, FORD YOVANA COUNTER INSTALLER Unavailable Unavailable SAUCEDA, FORD YOVANA COUNTER INSTALLER Unavailable Unavailable SAUCEDA, FORD YOVANA COUNTER INSTALLER Unavailable Unavailable SAUCEDA, FORD YOVANA COUNTER INSTALLER Unavailable Unavailable SAUCEDA, FORD YOVANA COUNTER INSTALLER Unavailable Unavailable SAUCEDA, FORD YOVANA COUNTER INSTALLER Unavailable Unavailable SAUCEDA, FORD YOVANA COUNTER INSTALLER Unavailable Unavailable SAUCEDA, FORD YOVANA COUNTER INSTALLER Unavailable Unavailable SAUCEDA, FORD YOVANA COUNTER INSTALLER Unavailable Unavailable SAUCEDA, FORD YOVANA COUNTER INSTALLER Unavailable Unavailable SAUCEDA, FORD YOVANA COUNTER INSTALLER Unavailable Unavailable SAUCEDA, FORD YOVANA COUNTER INSTALLER Unavailable Unavailable SAUCEDA, FORD YOVANA COUNTER INSTALLER Unavailable Unavailable SAUCEDA, FORD YOVANA COUNTER INSTALLER Unavailable Unavailable SAUCEDA, FORD YOVANA COUNTER INSTALLER Unavailable Unavailable SAUCEDA, FORD YOVANA COUNTER INSTALLER Unavailable Unavailable SAUCEDA, FORD YOVANA COUNTER INSTALLER Unavailable Unavailable SAUCEDA, FORD YOVANA COUNTER INSTALLER Unavailable Unavailable Lizz PACHECO MD Unavailable Unavailable Lizz PACHECO MD Unavailable Unavailable Lizz PACHECO MD Unavailable Unavailable Lizz PACHECO MD Unavailable Unavailable Lizz PACHECO MD Unavailable Unavailable Lizz PACHECO MD Unavailable Unavailable Lizz PACHECO MD Unavailable Unavailable Lizz PACHECO MD Unavailable Unavailable Lizz PACHECO MD Unavailable Unavailable Lizz PACHECO MD Unavailable Unavailable Lizz PACHECO MD Unavailable Unavailable Lizz PACHECO MD Unavailable Unavailable Lizz PACHECO MD Unavailable Unavailable Lizz PACHECO MD Unavailable Unavailable Lizz PACHECO MD Unavailable Unavailable Lizz PACHECO MD Unavailable Unavailable Lizz PACHECO MD Unavailable Unavailable Lizz PACHECO MD Unavailable Unavailable Lizz PACHECO MD Unavailable Unavailable Lizz PACHECO MD Unavailable Unavailable Lizz PACHECO MD Unavailable Unavailable Lizz PACHECO MD Unavailable Unavailable Lizz PACHECO MD Unavailable Unavailable Lizz PACHECO MD Unavailable Unavailable Lizz PACHECO MD Unavailable Unavailable Lizz PACHECO MD Unavailable Unavailable Lizz PACHECO MD Unavailable Unavailable FINK, M NURA PA Unavailable Unavailable FINK, M NURA PA Unavailable Unavailable FINK, M NURA PA Unavailable Unavailable FINK, M NURA PA Unavailable Unavailable FINK, M NURA PA Unavailable Unavailable FINK, M NURA PA Unavailable Unavailable FINK, M NURA PA Unavailable Unavailable FINK, M NURA PA Unavailable Unavailable FINK, M NURA PA Unavailable Unavailable FINK, M NURA PA Unavailable Unavailable FINK, M NURA PA Unavailable Unavailable FINK, M NURA PA Unavailable Unavailable FINK, M NURA PA Unavailable Unavailable FINK, M NURA PA Unavailable Unavailable FINK, M NURA PA Unavailable Unavailable FINK, M NURA PA Unavailable Unavailable FINK, M NURA PA Unavailable Unavailable FINK, M NURA PA Unavailable Unavailable FINK, M NURA PA Unavailable Unavailable FINK, M NURA PA Unavailable Unavailable FINK, M NURA PA Unavailable Unavailable FINK, M NURA PA Unavailable Unavailable FINK, M NURA PA Unavailable Unavailable FINK, M NURA PA Unavailable Unavailable FINK, M NURA PA Unavailable Unavailable FINK, M NURA PA Unavailable Unavailable FINK, M NURA PA Unavailable Unavailable FINK, M NURA PA Unavailable Unavailable FINK, M NURA PA Unavailable Unavailable FINK, M NURA PA Unavailable Unavailable FINK, M NURA PA Unavailable Unavailable FINK, M NURA PA Unavailable Unavailable FINK, M NURA PA Unavailable Unavailable NO, PCP Unavailable Unavailable Re-disclosure Warning The records that you are about to access may contain information from federally-assisted alcohol or drug abuse programs. If such information is present, then the following federally mandated warning applies: This information has been disclosed to you from records protected by federal confidentiality rules (42 CFR part 2). The federal rules prohibit you from making any further disclosure of this information unless further disclosure is expressly permitted by the written consent of the person to whom it pertains or as otherwise permitted by 42 CFR part 2. A general authorization for the release of medical or other information is NOT sufficient for this purpose. The Federal rules restrict any use of the information to criminally investigate or prosecute any alcohol or drug abuse patient.The records that you are about to access may contain highly sensitive health information, the redisclosure of which is protected by Article 27-F of the [facility] Public Health law. If you continue you may have access to information: Regarding HIV / AIDS; Provided by facilities licensed or operated by the [facility] Office of Mental Health; or Provided by the [facility] Office for People With Developmental Disabilities. If such information is present, then the following [facility] mandated warning applies: This information has been disclosed to you from confidential records which are protected by state law. State law prohibits you from making any further disclosure of this information without the specific written consent of the person to whom it pertains, or as otherwise permitted by law. Any unauthorized further disclosure in violation of state law may result in a fine or long-term sentence or both. A general authorization for the release of medical or other information is NOT sufficient authorization for further disc losure. Allergies and Adverse Reactions Type Description Substance Reaction Status Data Source(s ) Drug allergy Benadryl Diphenhydramine rash Active eCW1 ([facility]) Encounters Encounter Providers Location Date Indications Data Source(s ) Unknown [address] [facility] [address] 09/09/2020 12:00:00 AM EST eCW1 ([facility]) Outpatient Attender: AVTAR HOLLOWAY MDConsultant: PCP NO 09/02/2020 03:55:00 PM EST - 09/02/2020 03:55:00 PM EST [facility] Outpatient Attender: AVTAR HOLLOWAY MD Family Practice 08/20 03:15:00 PM EST [facility] ([facility]) Outpatient Attender: AVTAR HOLLOWAY MDConsultant: PCP NO 08/04/2020 02:22:00 PM EST - 08/04/2020 03:22:00 PM EST [facility] Outpatient Attender: AVTAR HOLLOWAY MDConsultant: PCP NO 07/06/2020 03:46:00 PM EST - 07/06/2020 03:46:00 PM EST [facility] Outpatient Attender: AVTAR HOLLOWAY MD Family Practice 06/20 02:45:00 PM EST [facility] ([facility]) Outpatient Attender: AVTAR HOLLOWAY MDConsultant: PCP NO 06/03/2020 03:26:00 PM EDT - 06/03/2020 03:26:00 PM EDT [facility] Outpatient Attender: YOVANA PELAYOILL NPConsultant: PCP NO 04/01/2020 01:20:00 PM EDT - 04/01/2020 01:20:00 PM EDT [facility] Attender: YOVANA SAUCEDA NPConsultant: PCP NO 03/24/2020 03:42:00 PM EDT - 03/24/2020 03:42:00 PM EDT [facility] Outpatient Attender: YOVANA SAUCEDA NPConsultant: PCP NO 03/17/2020 04:24:00 PM EDT - 03/17/2020 05:24:00 PM EDT [facility] Outpatient Attender: YOVANA SAUCEDA NPConsultant: PCP NO 03/12/2020 03:14:00 PM EDT - 03/12/2020 03:14:00 PM EDT [facility] Out[facility] Attender: YOVANA SAUCEDA COUNTER INSTALLER Family Practice 03/11/2020 03 :30:00 PM EDT [facility] ([facility]) Outpatient Attender: YOVANA SAUCEDA NPConsultant: PCP NO 03/11/2020 03:11:00 PM EDT - 03/11/2020 03:11:00 PM EDT [facility] Outpatient Attender: YOVANA SAUCEDA COUNTER INSTALLER Family Practice 12/29/2019 09 :30:00 AM EDT [facility] ([facility]) Outpatient Attender: YOVANA SAUCEDA NPConsultant: PCP NO 12/29/2019 09:25:00 AM EDT - 12/29/2019 09:25:00 AM EDT [facility] Outpatient Attender: NURA Baraajs/Kaylan/Wenceslao/Aric dl 11/07/2019 10:30:00 AM EDT [facility] ([facility] ) Outpatient Attender: AVTAR HOLLOWAY MDConsultant: PCP NO 11/06/2019 02:59:00 PM EDT - 11/06/2019 02:59:00 PM EDT [facility] [address] [phone] 10/28/2019 12:00:00 AM EDT eCW1 ([facility]) Outpatient Attender: AVTAR HOLLOWAY MDConsultant: PCP NO 10/24/2019 03:00:00 PM EST - 10/24/2019 03:00:00 PM EST [facility] [address] [place] [phone] 10/13/2019 12:00:00 AM EST eCW1 ([facility]) [facility] [address] [place] [phone] 10/03/2019 12:00:00 AM EST eCW1 ([facility]) Outpatient 09/15/2019 01:48:00 PM EST [facility] Outpatient Attender: AVTAR HOLLOWAY MDConsultant: PCP NO 08/22/2019 09:43:00 AM EST - 08/22/2019 09:43:00 AM EST [facility] Outpatient Attender: AVTAR HOLLOWAY MD Family Practice 10/2019 08:45:00 AM EST [facility] ([facility]) Outpatient Attender: AVTAR HOLLOWAY MDConsultant: PCP NO 08/14/2019 03:44:00 PM EST - 08/14/2019 03:44:00 PM EST [facility] Outpatient Attender: AVTAR HOLLOWAY MD Family Practice 07/21 02:45:00 PM EST [facility] ([facility]) Outpatient Attender: AVTAR HOLLOWAY MDConsultant: PCP NO 08/08/2019 01:44:00 PM EST - 08/08/2019 01:44:00 PM EST [facility] Outpatient Attender: AVTAR HOLLOWAY MD Family Practice 07/21 12:45:00 PM EST [facility] ([facility]) Outpatient Attender: MATHEW PACHECO MDConsultant: PCP NO 07/28/2019 01:53:00 PM EST - 07/28/2019 01:53:00 PM EST [facility] Outpatient Attender: MATHEW PACHECO MD Family Practice 01:00:00 PM EST [facility] ([facility]) Outpatient Attender: AVTAR HOLLOWAY MDConsultant: PCP NO 07/21/2019 01:46:00 PM EST - 07/21/2019 01:46:00 PM EST [facility] Outpatient Attender: AVTAR HOLLOWAY MD Family Practice 09/2018 01:00:00 PM EST [facility] ([facility]) Outpatient Attender: AVTAR HOLLOWAY MDConsultant: PCP NO 07/16/2019 03:10:00 PM EST - 07/16/2019 03:10:00 PM EST [facility] Outpatient Attender: AVTAR HOLLOWAY MDConsultant: PCP NO 06/23/2019 09:38:00 AM EST - 06/23/2019 09:38:00 AM EST [facility] Immunizations Vaccine Date Status Description Data Source(s) HPV9 03/11/2020 10:55:00 AM EDT completed M [facility] ([facility]) HPV9 10/24/2019 07:43:00 AM EST completed [facility] ([facility]) HPV9 07/28/2019 01:17:00 PM EST completed [facility] ([facility]) Medications Medication Brand Name Start Date Product Form Dose Route Admi nistrative Instructions Pharmacy Instructions Status Indications Reaction Description Data Source(s) 24 HR Metformin hydrochloride 500 MG Extended Release Oral Tablet Metformin HCL ER 07/06/2020 12:00:00 AM EST ORAL active [facility] ([facility]) No Active Medications 07/06/2020 12:00:00 AM EST completed [facility] ([facility]) letrozole 2.5 MG Oral Tablet Letrozole 07/06/2020 12:00:00 AM EST ORAL active [facility] ([facility]) medroxyprogesterone acetate 10 MG Oral Tablet [Provera] Prov era 07/06/2020 12:00:00 AM EST ORAL active [facility] ([facility]) Phenazopyridine hydrochloride 200 MG Oral Tablet [Pyridium] Pyridium 06/03/2020 12:00:00 AM EDT ORAL completed [facility] ([facility]) Sulfamethoxazole 800 MG / Trimethoprim 160 MG Oral Tablet [B actrim] Bactrim DS 06/03/2020 12:00:00 AM EDT ORAL completed [facility] ([facility]) No Active Medications 06/03/2020 12:00:00 AM EDT completed [facility] ([facility]) Metronidazole 500 MG Oral Tablet Metronidazole 04/01/2020 12:00:00 AM EDT ORAL completed [facility] ([facility]) Fluconazole 150 MG Oral Tablet Fluconazole 04/01/2020 12:00:00 AM EDT ORAL completed [facility] ([facility]) Sprintec 28 Sprintec 28 03/24/2020 12:00:00 AM EDT ORAL completed [facility] ([facility]) No Active Medications 03/11/2020 12:00:00 AM EDT completed [facility] ([facility]) Clindamycin 20 MG/ML Vaginal Cream [Cleocin] Cleocin 12:00:00 AM EDT completed [facility] ([facility]) Nystatin 405604 UNT/ML / Triamcinolone Acetonide 1 MG/ ML Topical Cream Nystatin/Triamcinolone Acetonide 12/31/2019 12:00:00 AM EDT completed [facility] ([facility]) Ampicillin 500 MG Oral Capsule Ampicillin 12/31/2019 12:00:00 AM EDT ORAL completed [facility] ([facility]) Fluconazole 150 MG Oral Tablet Fluconazole 12/29/2019 12:00:00 AM EDT ORAL completed [facility] ([facility]) Metronidazole 500 MG Oral Tablet Metronidazole 12/29/2019 12:00:00 AM EDT ORAL completed [facility] ([facility]) Ibuprofen 800 MG Oral Tablet Ibuprofen 11/27/2019 12:00:00 AM EDT ORAL active [facility] ([facility] ) Sumatriptan 100 MG Oral Tablet Sumatriptan Succinate 11/27/2019 12:00:00 AM EDT ORAL active [facility] ( [facility] ) Alprazolam 0.5 MG Oral Tablet Alprazolam 11/27/2019 12:00:00 AM EDT ORAL active [facility] ([facility] ) topiramate 50 MG Oral Tablet Topiramate 11/27/2019 12:00:00 AM EDT active [facility] ([facility] ) No Active Medications 11/07/2019 12:00:00 AM EDT completed [facility] ([facility]) letrozole 2.5 MG Oral Tablet Letrozole 11/06/2019 12:00:00 AM EDT ORAL completed [facility] ([facility]) medroxyprogesterone acetate 10 MG Oral Tablet [Provera] Prov era 11/06/2019 12:00:00 AM EDT ORAL completed [facility] ([facility]) No Active Medications 11/06/2019 12:00:00 AM EDT completed [facility] ([facility]) Fluconazole 150 MG Oral Tablet [Diflucan] Diflucan 10/27/2019 1 2:00:00 AM EDT ORAL completed [facility] ([facility]) Ciprofloxacin 500 MG Oral Tablet [Cipro] Cipro 500 MG Cipro 500 MG 10/13/2019 12:00:00 AM EST active 1 tablet [facility] Fluconazole 150 MG Oral Tablet Fluconazole 150 MG 10/13/2019 12:00: 00 AM EST active 1 tablet [facility] No Active Medications 08/22/2019 12:00:00 AM EST completed [facility] ([facility]) Fluconazole 150 MG Oral Tablet [Diflucan] Diflucan 08/14/2019 1 2:00:00 AM EST ORAL active [facility] ([facility]) No Active Medications 07/16/2019 12:00:00 AM EST completed [facility] ([facility]) Insurance Providers Payer name Policy type / Coverage type Policy ID Covered alliance party ID Covered alliance party's relationship to charles Policy Charles Plan Information [facility] [id number] SP [id number] [facility] [place] [id number] [employer] [place] [facility] [place] [id number] 18 [id number] [employer] AT [facility] [place] [id number] 18 [id number] [facility] [id number] SP [id number] [facility] O [id number] Problems, Conditions, and Diagnoses Code Display Name Description Problem Type Effective Dates Data Source(s) E28.2 [id number] PCOS (polycystic ovarian syndrome) Proble 09/02/2020 12:00:00 AM EST [facility] M20.11 [id number] Hallux valgus (acquired), right foot Prob julieta 09/02/2020 12:00:00 AM EST [facility]) M20.12 [id number] Hallux valgus (acquired), left foot Pr oblem 09/02/2020 12:00:00 AM EST [facility]) [id number] Polycystic ovary syndrome Polycystic ovary syndrome Pr oblem 03/11/2020 12:00:00 AM EDT [facility] ([facility]) [id number] Dizziness and giddiness Dizziness and giddiness Proble 11/27/2019 12:00:00 AM EDT [facility] ([facility] ) [id number] Visual disturbance Visual disturbance Problem 04/2020 12:00:00 AM EDT [facility] ([facility] ) [id number] Spondylolysis of cervical spine Spondylolysis of cervical spine Problem 11/27/2019 12:00:00 AM EDT [facility] ([facility] ) [id number] Neck pain Neck pain Problem 11/27/2019 12:00:00 AM ED T [facility] ([facility] ) [id number] Disorders of initiating and maintaining sleep Disorders of initiating and maintaining sleep Problem 11/27/2019 12:00:00 AM EDT [facility] ([facility] ) [id number] Migraine with typical aura Migraine with typical aura Problem 11/27/2019 12:00:00 AM EDT [facility] ([facility] ) 215560741 Chronic tension-type headache Chronic tension-type hea dache Problem 11/27/2019 12:00:00 AM EDT [facility] ([facility] ) [id number] Chronic intractable migraine without aur a Chronic intractable migraine without aura Problem 11/27/2019 12:00:00 AM EDT [facility] ([facility] ) N979 Female infertility, unspecified Female infertility, un specified Diagnosis 09/02/2020 03:55:00 PM [facility] E282 Polycystic ovarian syndrome Polycystic ovarian syndrom e Diagnosis 09/02/2020 03:55:00 PM [facility] [id number] Encounter for gynecological examination (general) (routine) without abnormal findings Encounter for gynecological examination (general) (routine) without abnormal findings Diagnosis 08/04/2020 02:22:00 PM [facility] R300 Dysuria Dysuria Diagnosis 06/03/2020 03:26:00 PM ED T [facility] B373 Candidiasis of vulva and vagina Candidiasis of vulva a nd vagina Diagnosis 04/01/2020 01:20:00 PM EDT [facility] N760 Acute vaginitis Acute vaginitis Diagnosis 04/01/2020 01:2 0:00 PM EDT [facility] [id number] Unspecified ovarian cyst, left side Unspecified ovarian cyst, left side Diagnosis 03/24/2020 03:42:00 PM EDT [facility] R102 Pelvic and perineal pain Pelvic and perineal pain Diag nosis 03/11/2020 03:11:00 PM EDT [facility] Z23 Encounter for immunization Encounter for immunization Diagnosis 03/11/2020 03:11:00 PM EDT [facility] A630 Anogenital (venereal) warts Anogenital (venereal) wart s Diagnosis 10/24/2019 03:00:00 PM [facility] Surgeries/Procedures Procedure Description Date Indications Data Source(s) Magnetic Resonance Angiogtaphy Head W/O Contrast Material(S) 12/01/2019 12:00:00 AM EDT [facility] ([facility] ) Magnetic Resonance Angiogtaphy Head W/O Contrast Material(S) 12/01/2019 12:00:00 AM EDT [facility] ([facility] ) MRI BRAIN BRAIN STEM W/O CONTRAST MATERIAL 12/01/2019 12:00:00 AM EDT [facility] ([facility] ) MRI BRAIN BRAIN STEM W/O CONTRAST MATERIAL 12/01/2019 12:00:00 AM EDT [facility] ([facility] ) MRI SPINAL CANAL CERVICAL W/O CONTRAST MATRL 0 12:00:00 AM EDT [facility] ([facility] ) MRI SPINAL CANAL CERVICAL W/O CONTRAST MATRL 0 12:00:00 AM EDT [facility] ([facility] ) Influenza A+B 10/28/2019 12:00:00 AM EDT [facility] URINE-NO MICRO 10/13/2019 12:00:00 AM EST [facility]) URINE TEST 10/13/2019 12:00:00 AM EST [facility]) THER/PROPH/DIAG INJ, SC/IM 10/13/2019 12:00:00 AM EST [facility] Injection, ceftriaxone sodium, per 250 mg 10/13/2019 1 2:00:00 AM EST [facility] Results ID Date Data Source [id number] 09/14/2020 02:00:00 PM EST [facility] Name Value Range Interpretation Code Description Data Joseline rce(s) Supporting Document(s) SARS coronavirus 2 RNA Not Detected [facility] This lab was ordered by [facility] and reported by [facility]. ID Date Data Source [id number] 08/31/2020 12:00:00 PM EST [facility] Name Value Range Interpretation Code Description Data Joseline rce(s) Supporting Document(s) SARS coronavirus 2 RNA Not Detected [facility] [place] This lab was ordered by [facility] and reported by [facility]. ID Date Data Source [id number] 08/24/2020 08:00:00 AM EST [facility] Name Value Range Interpretation Code Description Data Joseline rce(s) Supporting Document(s) SARS coronavirus 2 RNA Not Detected [facility] [place] This lab was ordered by [facility] and reported by [facility]. ID Date Data Source [id number] 08/21/2020 12:00:00 AM EST [facility] Name Value Range Interpretation Code Description Data Joseline rce(s) Supporting Document(s) SARS-CoV2 Rapid Antigen [facility] This lab was ordered by [facility] and reported by [facility]. ID Date Data Source [id number] 08/17/2020 08:36:00 AM EST [facility] Name Value Range Interpretation Code Description Data Joseline rce(s) Supporting Document(s) SARS coronavirus 2 RNA [facility] This lab was ordered by [facility] and reported by [facility]. ID Date Data Source [id number] 08/10/2020 02:00:00 PM EST [facility] Name Value Range Interpretation Code Description Data Joseline rce(s) Supporting Document(s) SARS coronavirus 2 RNA [facility] This lab was ordered by [facility] and reported by [facility]. ID Date Data Source [id number] 08/04/2020 02:25:00 PM EST [facility] ([facility]) Name Value Range Interpretation Code Description Data Joseline rce(s) Supporting Document(s) Progesterone [Mass/volume] in Serum or Plasma 2.6 ng/mL [facility] ([facility]) .~.~Z01.419Z01.419 ID Date Data Source [id number] 08/04/2020 02:25:00 PM EST [facility] ([facility]) Name Value Range Interpretation Code Description Data Joseline rce(s) Supporting Document(s) HCG Serum Qual Laboratory test result [facility] ([facility]) .~.~Z01.419Z01.419 HCG Serum QL [facility] Laboratory test result [facility] ([facility]) .~.~Z01.419Z01.419 ID Date Data Source [id number] 08/06/2020 10:09:00 AM EST [facility] Name Value Range Interpretation Code Description Data Joseline rce(s) Supporting Document(s) Progesterone [Mass/volume] in Serum or Plasma 2.6 ng/mL [facility] Foll icular phase 0.1 - 0.9 Luteal phase 1.8 - 23.9 Ovulation phase 0.1 - 12.0 First trimester 11.0 - 44.3 Second trimester 25.4 - 83.3 Third trimester 58.7 - 214.0 Postmenopausal 0.0 - 0.1 ID Date Data Source [id number] 08/04/2020 03:02:00 PM EST [facility] Name Value Range Interpretation Code Description Data Joseline rce(s) Supporting Document(s) HCG SERUM QUAL NEGATIVE NORMAL: NEGATIVE [facility] HCG SERUM QL REENTER NEGATIVE NORMAL: NEGATIVE Ca [facility] { KIT LOT # [id number] ){ KIT EXP DATE 05.25.21 ){ PROCEDURAL CONTROL VALID ) ID Date Data Source [id number] 08/03/2020 12:27:00 PM EST [facility] Name Value Range Interpretation Code Description Data Joseline rce(s) Supporting Document(s) SARS coronavirus 2 RNA [facility] This lab was ordered by [facility] and reported by [facility]. ID Date Data Source [id number] 07/27/2020 10:03:00 AM EST [facility] Name Value Range Interpretation Code Description Data Joseline rce(s) Supporting Document(s) SARS coronavirus 2 RNA [facility] This lab was ordered by [facility] and reported by [facility]. ID Date Data Source [id number] 07/20/2020 12:00:00 PM EST [facility] Name Value Range Interpretation Code Description Data Joseline rce(s) Supporting Document(s) SARS coronavirus 2 RNA [facility] This lab was ordered by [facility] and reported by [facility]. ID Date Data Source [id number] 07/13/2020 02:45:00 PM EST [facility] Name Value Range Interpretation Code Description Data Joseline rce(s) Supporting Document(s) SARS coronavirus 2 RNA [facility] This lab was ordered by [facility] and reported by [facility]. ID Date Data Source [id number] 07/06/2020 04:13:00 PM EST [facility] ([facility]) Name Value Range Interpretation Code Description Data Joseline rce(s) Supporting Document(s) Source: Laboratory test result [facility] ([facility]) {SOURCE: Random Void Neisseria gonorrhoeae,Tracee Laboratory test result [facility] ([facility]) {SOURCE: Random Void Chlamydia trachomatis,Tracee Laboratory test result [facility] ([facility]) {SOURCE: Random Void ID Date Data Source [id number] 07/09/2020 06:50:00 AM EST [facility] Name Value Range Interpretation Code Description Data Joseline rce(s) Supporting Document(s) SOURCE: Random Void [facility] ital Chlamydia trachomatis rRNA [Presence] in Unspecified specimen by Probe and target amplification method Negative Negative [facility] Neisseria gonorrhoeae rRNA [Presence] in Unspecified specimen by Probe and target amplification method Negative Negative [facility] ID Date Data Source [id number] 07/06/2020 11:42:00 AM EST [facility] Name Value Range Interpretation Code Description Data Joseline rce(s) Supporting Document(s) SARS coronavirus 2 RNA [facility] This lab was ordered by [facility] and reported by [facility]. ID Date Data Source [id number] 06/29/2020 10:30:00 AM EST [facility] Name Value Range Interpretation Code Description Data Joseline rce(s) Supporting Document(s) SARS coronavirus 2 RNA [facility] This lab was ordered by [facility] and reported by [facility]. ID Date Data Source [id number] 06/22/2020 12:49:00 PM EST [facility] Name Value Range Interpretation Code Description Data Joseline rce(s) Supporting Document(s) SARS coronavirus 2 RNA [facility] This lab was ordered by [facility] and reported by [facility]. ID Date Data Source [id number] 06/15/2020 07:30:00 AM EDT [facility] Name Value Range Interpretation Code Description Data Joseline rce(s) Supporting Document(s) SARS coronavirus 2 RNA [facility] This lab was ordered by [facility] and reported by [facility]. ID Date Data Source [id number] 06/08/2020 02:25:00 PM EDT [facility] Name Value Range Interpretation Code Description Data Joseline rce(s) Supporting Document(s) SARS coronavirus 2 RNA [facility] This lab was ordered by [facility] and reported by [facility]. ID Date Data Source [id number] 06/03/2020 04:13:00 PM EDT [facility] ([facility]) Name Value Range Interpretation Code Description Data Joseline rce(s) Supporting Document(s) Culture Urine Laboratory test result [facility] ([facility]) {SPECIMEN TYPE: RANDOM~.~.~R31.9 ID Date Data Source [id number] 06/09/2020 09:33:00 AM EDT [facility] Name Value Range Interpretation Code Description Data Joseline rce(s) Supporting Document(s) CULTURE URINE [facility] spital _CULTURE URINE_$$[id number]$$[id number]$$[id number]$$439894$$932166$$133823$$046418$$535829$$703623$$ 915192$$742337$$790799$$089025$$119364$$983563$$798705$$538741$$915526$$181116$$ 851369$$001547$$364441$$439908$$710299$$292565$$131089$$299974 -- Continued on next page --Patient: INDIO Zamudio Order: [id number] Page 2Culture: CULTURE URINE Status: Final ==== -- Continued on next page --Patient: INDIO Zamudio Order: [id number] Page 2Culture: CULTURE URINE Status: Prelim =====$$[id number]$$[id number] DATE/TIME: 06/09/2020 09:06Culture: CULTURE URINE Status: FinalIsolate 1 Lactobacillus species Flag: . . . . . . .410,000-25,000 colony forming units per mLSusceptibility not normally performed on this organism. Previous result entered on 06/06/2020 06:45 ET Specimen has been received and testing has been initiated.Urine Culture,Comprehensive: [id number] speciesP1 Test performed by: [facility] #: [id number] [address] [place] [address] [id number] [facility] [address]Medical Director : Stewart Ruiz MD NPI #:[employer] Swe[employer] Operator : 06/07/20.0623.XMT.SENT REF 06/09/20.0933.XMT.SENT REF ID Date Data Source [id number] 06/01/2020 10:35:00 AM EDT [facility] Name Value Range Interpretation Code Description Data Joseline rce(s) Supporting Document(s) SARS coronavirus 2 RNA [facility] This lab was ordered by [facility] and reported by [facility]. ID Date Data Source [id number] 05/25/2020 10:00:00 AM EDT [facility] Name Value Range Interpretation Code Description Data Joseline rce(s) Supporting Document(s) SARS coronavirus 2 RNA [facility] This lab was ordered by [facility] and reported by [facility]. ID Date Data Source [id number] 05/18/2020 09:00:00 AM EDT [facility] Name Value Range Interpretation Code Description Data Joseline rce(s) Supporting Document(s) SARS coronavirus 2 RNA [facility] This lab was ordered by [facility] and reported by [facility]. ID Date Data Source [id number] 05/11/2020 12:43:00 PM EDT [facility] Name Value Range Interpretation Code Description Data Joseline rce(s) Supporting Document(s) SARS coronavirus 2 RNA [facility] This lab was ordered by [facility] and reported by [facility]. ID Date Data Source [id number] 04/19/2020 07:06:00 AM EDT [facility] Name Value Range Interpretation Code Description Data Joseline rce(s) Supporting Document(s) SARS coronavirus 2 RNA [facility] This lab was ordered by [facility] and reported by [facility]. ID Date Data Source [id number] 04/13/2020 11:09:00 AM EDT [facility] Name Value Range Interpretation Code Description Data Joseline rce(s) Supporting Document(s) SARS coronavirus 2 RNA [facility] This lab was ordered by [facility] and reported by [facility]. ID Date Data Source [id number] 04/01/2020 02:11:00 PM EDT [facility] ([facility]) Name Value Range Interpretation Code Description Data Joseline rce(s) Supporting Document(s) Inhouse [facility] Laboratory test result [facility] ([facility]) ID Date Data Source [id number] 03/18/2020 03:35:00 PM EDT [facility] [address] [place] [address] PHONE: [phone] FAX: [phone] Name .................. : INDIO Zamudio Acct Number.................. : [id number] ROOM. ................. : MR Number ................... : [id number] Stay type ............. : O/P Discharge Date......... ... : 03/17/20 Admit Date ......... : 03/17/20 Admit Phys .................... : SAUCEDA TIN Date of ....... : 1990 Family Phys ................... : NO PCP Phone .................. : [phone] Age ................................ : 29 Film# .................. .:[id number] Sex ................................. : F Unsigned transcriptions are preliminary reports and do not represent a medical or legal document PELVIC [id number] COMPLETE:03/17/20 18:56 ADB 16760 (REASON FOR PELVIS: PAIN TRANSABDOMINAL PELVIC ULTRASOUND: INDICATION: Left side pelvic pain. FINDINGS: The uterus measures 12.6 x 3.4 x 7.4 cm. The endometrium is within normal limits, measuring 4 mm. The right ovary measures 6.2 x 2.7 x 3.0 cm. The left ovary measures 5.7 x 3.6 x 3.3 cm. There is a cyst identified in the left ovary measuring 2.2 x 2.3 x 2.0 cm. No free fluid or torsion is identified. IMPRESSION: 2.3 cm left ovarian cyst. Examination is otherwise unremarkable. Examination dictated by DIVYA Marte. Examination was reviewed with Emmanuel Sears MD, radiologist at the time of this dictation. Electronically Reviewed and Signed By Emmanuel Sears M.D. , 03/18/20 15:35, MTY Transcribe Initials: THOMAS , Transcribe Date: 03/17/20 23:12, Dictation Date: Copy for: [facility] REC Page 1 of 1 Name Value Range Interpretation Code Description Data Joseline rce(s) Supporting Document(s) ID Date Data Source [id number] 03/12/2020 03:21:00 PM EDT [facility] ([facility]) Name Value Range Interpretation Code Description Data Joseline rce(s) Supporting Document(s) HCG Serum QL [facility] Laboratory test result [facility] ([facility]) { KIT LOT # [id number] ) { KIT EXP DATE 06.01.21 ) { PROCEDURAL CONTROL VALID ) HCG Serum Qual Laboratory test result [facility] ([facility]) ID Date Data Source [id number] 03/12/2020 03:50:00 PM EDT [facility] Name Value Range Interpretation Code Description Data Joseline rce(s) Supporting Document(s) HCG SERUM QUAL NEGATIVE NORMAL: NEGATIVE [facility] HCG SERUM QL REENTER NEGATIVE NORMAL: NEGATIVE Ca [facility] { KIT LOT # [id number] ){ KIT EXP DATE 06.01.21 ){ PROCEDURAL CONTROL VALID ) ID Date Data Source [id number] 03/11/2020 04:41:00 PM EDT [facility] ([facility]) Name Value Range Interpretation Code Description Data Joseline rce(s) Supporting Document(s) Inhouse [facility] Laboratory test result [facility] ([facility]) ID Date Data Source [id number] 03/11/2020 04:01:00 PM EDT [facility] ([facility]) Name Value Range Interpretation Code Description Data Joseline rce(s) Supporting Document(s) US Pelvic Laboratory test result [facility] ([facility]) ID Date Data Source [id number] 03/09/2020 03:32:00 PM EDT [facility] Name Value Range Interpretation Code Description Data Joseline rce(s) Supporting Document(s) SARS coronavirus 2 RNA [facility] This lab was ordered by [facility] and reported by [facility]. ID Date Data Source [id number] 03/02/2020 11:20:00 AM EDT [facility] Name Value Range Interpretation Code Description Data Joseline rce(s) Supporting Document(s) SARS coronavirus 2 RNA [facility] This lab was ordered by [facility] and reported by [facility]. ID Date Data Source [id number] 02/24/2020 01:16:00 PM EDT [facility] Name Value Range Interpretation Code Description Data Joseline rce(s) Supporting Document(s) SARS coronavirus 2 RNA [facility] This lab was ordered by [facility] and reported by [facility]. ID Date Data Source [id number] 02/10/2020 11:49:00 AM EDT [facility] Name Value Range Interpretation Code Description Data Joseline rce(s) Supporting Document(s) SARS CORONAVIRUS 2 RNA [facility] This lab was ordered by [facility] and reported by [facility]. ID Date Data Source [id number] 02/06/2020 12:00:00 AM EDT [facility] Name Value Range Interpretation Code Description Data Joseline rce(s) Supporting Document(s) SARS CORONAVIRUS 2 RNA [facility] This lab was ordered by [facility] and reported by [facility]. ID Date Data Source [id number] 02/03/2020 01:42:00 PM EDT [facility] Name Value Range Interpretation Code Description Data Joseline rce(s) Supporting Document(s) SARS CORONAVIRUS 2 RNA [facility] This lab was ordered by [facility] and reported by [facility]. ID Date Data Source [id number] 01/27/2020 03:27:00 PM EDT [facility] Name Value Range Interpretation Code Description Data Joseline rce(s) Supporting Document(s) SARS CORONAVIRUS 2 RNA [facility] This lab was ordered by [facility] and reported by [facility]. ID Date Data Source [id number] 01/23/2020 10:00:00 AM EDT [facility] Name Value Range Interpretation Code Description Data Joseline rce(s) Supporting Document(s) SARS CORONAVIRUS 2 RNA [facility] This lab was ordered by [facility] and reported by [facility]. ID Date Data Source [id number] 01/20/2020 05:30:00 AM EDT [facility] Name Value Range Interpretation Code Description Data Joseline rce(s) Supporting Document(s) SARS CORONAVIRUS 2 RNA [facility] This lab was ordered by [facility] and reported by [facility]. ID Date Data Source [id number] 01/16/2020 12:12:00 PM EDT [facility] Name Value Range Interpretation Code Description Data Joseline rce(s) Supporting Document(s) SARS CORONAVIRUS 2 RNA [facility] This lab was ordered by [facility] and reported by [facility]. ID Date Data Source [id number] 01/14/2020 06:00:00 AM EDT [facility] Name Value Range Interpretation Code Description Data Joseline rce(s) Supporting Document(s) SARS CORONAVIRUS 2 RNA [facility] This lab was ordered by [facility] and reported by [facility]. ID Date Data Source [id number] 01/08/2020 10:47:00 AM EDT [facility] Name Value Range Interpretation Code Description Data Joseline rce(s) Supporting Document(s) SARS CORONAVIRUS 2 RNA [facility] This lab was ordered by [facility] and reported by [facility]. ID Date Data Source [id number] 01/05/2020 05:30:00 AM EDT [facility] Name Value Range Interpretation Code Description Data Joseline rce(s) Supporting Document(s) SARS CORONAVIRUS 2 RNA [facility] This lab was ordered by [facility] and reported by [facility]. ID Date Data Source [id number] 12/29/2019 10:30:00 AM EDT [facility] ([facility]) Name Value Range Interpretation Code Description Data Joseline rce(s) Supporting Document(s) Progesterone [Mass/volume] in Serum or Plasma 0.1 ng/mL [facility] ([facility]) .~.~<DG1.3.1>N97.9</DG1.3.1><DG1.3.1>N97.9</DG1.3.1><DG1.3.1>N97.9</DG1.3.1><DG1 .3.1 Is patient fasting? N~.~.~<DG1.3.1>N97.9</DG1.3.1><DG1.3.1>N97.9</DG1.3.1><DG1.3.1>N97.9</DG1.3. .~.~<DG1.3.1> N97.9</DG1.3.1><DG1.3.1>N97.9</DG1.3.1><DG1.3.1>N97.9</DG1.3.1><DG1.3.1 .~.~<DG1.3.1>N97.9</DG1.3.1><DG1.3.1>N97.9</DG1.3.1><DG1.3.1>N97.9</DG1.3.1><DG1 .3.1 .~.~<DG1.3.1>N97.9</DG1.3.1><DG1.3.1> N97.9</DG1.3.1><DG1.3.1>N97.9</DG1.3.1><DG1.3.1 .~.~<DG1.3.1>N97.9</DG1.3.1><DG1.3.1>N97.9</DG1.3.1><DG1.3.1>N97.9</DG1.3.1><DG1 .3.1 .~.~<DG1.3.1>N97.9</DG1.3.1><DG1.3.1>N97.9</DG1.3.1><DG1.3.1> N97.9</DG1.3.1><DG1.3.1 .~.~<DG1.3.1>N97.9</DG1.3.1><DG1.3.1>N97.9</DG1.3.1><DG1.3.1>N97.9</DG1.3.1><DG1 .3.1 .~.~<DG1.3.1>N97.9</DG1.3.1><DG1.3.1>N97.9</DG1.3.1><DG1.3.1>N97.9</DG1.3.1> <DG1.3.1 .~.~<DG1.3.1>N97.9</DG1.3.1><DG1.3.1>N97.9</DG1.3.1><DG1.3.1>N97.9</DG1.3.1><DG1 .3.1 .~.~<DG1.3.1>N97.9</DG1.3.1><DG1.3.1>N97.9</DG1.3.1><DG1.3.1>N97.9</DG1.3.1><DG1 .3.1 ID Date Data Source [id number] 12/29/2019 10:30:00 AM EDT [facility] ([facility]) Name Value Range Interpretation Code Description Data Joseline rce(s) Supporting Document(s) Insulin Free \\T\\ Tot Laboratory test result [facility] ([facility]) .~.~<DG1.3.1>N97.9</DG1.3.1><DG1.3.1>N97.9</DG1.3.1><DG1.3.1>N97.9</DG1.3.1><DG1 .3.1 Is patient fasting? N~.~.~<DG1.3.1>N97.9</DG1.3.1><DG1.3.1>N97.9</DG1.3.1><DG1.3.1>N97.9</DG1.3. .~.~<DG1.3.1> N97.9</DG1.3.1><DG1.3.1>N97.9</DG1.3.1><DG1.3.1>N97.9</DG1.3.1><DG1.3.1 .~.~<DG1.3.1>N97.9</DG1.3.1><DG1.3.1>N97.9</DG1.3.1><DG1.3.1>N97.9</DG1.3.1><DG1 .3.1 .~.~<DG1.3.1>N97.9</DG1.3.1><DG1.3.1> N97.9</DG1.3.1><DG1.3.1>N97.9</DG1.3.1><DG1.3.1 .~.~<DG1.3.1>N97.9</DG1.3.1><DG1.3.1>N97.9</DG1.3.1><DG1.3.1>N97.9</DG1.3.1><DG1 .3.1 .~.~<DG1.3.1>N97.9</DG1.3.1><DG1.3.1>N97.9</DG1.3.1><DG1.3.1> N97.9</DG1.3.1><DG1.3.1 .~.~<DG1.3.1>N97.9</DG1.3.1><DG1.3.1>N97.9</DG1.3.1><DG1.3.1>N97.9</DG1.3.1><DG1 .3.1 .~.~<DG1.3.1>N97.9</DG1.3.1><DG1.3.1>N97.9</DG1.3.1><DG1.3.1>N97.9</DG1.3.1> <DG1.3.1 .~.~<DG1.3.1>N97.9</DG1.3.1><DG1.3.1>N97.9</DG1.3.1><DG1.3.1>N97.9</DG1.3.1><DG1 .3.1 .~.~<DG1.3.1>N97.9</DG1.3.1><DG1.3.1>N97.9</DG1.3.1><DG1.3.1>N97.9</DG1.3.1><DG1 .3.1 Free Insulin 7.7 uU/mL [facility] ([facility]) .~.~<DG1.3.1>N97.9</DG1.3.1><DG1.3.1>N97.9</DG1.3.1><DG1.3.1>N97.9</DG1.3.1><DG1 .3.1 Is patient fasting? N~.~.~<DG1.3.1>N97.9</DG1.3.1><DG1.3.1>N97.9</DG1.3.1><DG1.3.1>N97.9</DG1.3. .~.~<DG1.3.1> N97.9</DG1.3.1><DG1.3.1>N97.9</DG1.3.1><DG1.3.1>N97.9</DG1.3.1><DG1.3.1 .~.~<DG1.3.1>N97.9</DG1.3.1><DG1.3.1>N97.9</DG1.3.1><DG1.3.1>N97.9</DG1.3.1><DG1 .3.1 .~.~<DG1.3.1>N97.9</DG1.3.1><DG1.3.1> N97.9</DG1.3.1><DG1.3.1>N97.9</DG1.3.1><DG1.3.1 .~.~<DG1.3.1>N97.9</DG1.3.1><DG1.3.1>N97.9</DG1.3.1><DG1.3.1>N97.9</DG1.3.1><DG1 .3.1 .~.~<DG1.3.1>N97.9</DG1.3.1><DG1.3.1>N97.9</DG1.3.1><DG1.3.1> N97.9</DG1.3.1><DG1.3.1 .~.~<DG1.3.1>N97.9</DG1.3.1><DG1.3.1>N97.9</DG1.3.1><DG1.3.1>N97.9</DG1.3.1><DG1 .3.1 .~.~<DG1.3.1>N97.9</DG1.3.1><DG1.3.1>N97.9</DG1.3.1><DG1.3.1>N97.9</DG1.3.1> <DG1.3.1 .~.~<DG1.3.1>N97.9</DG1.3.1><DG1.3.1>N97.9</DG1.3.1><DG1.3.1>N97.9</DG1.3.1><DG1 .3.1 .~.~<DG1.3.1>N97.9</DG1.3.1><DG1.3.1>N97.9</DG1.3.1><DG1.3.1>N97.9</DG1.3.1><DG1 .3.1 Total Insulin 7.7 uU/mL [facility] ([facility]) .~.~<DG1.3.1>N97.9</DG1.3.1><DG1.3.1>N97.9</DG1.3.1><DG1.3.1>N97.9</DG1.3.1><DG1 .3.1 Is patient fasting? N~.~.~<DG1.3.1>N97.9</DG1.3.1><DG1.3.1>N97.9</DG1.3.1><DG1.3.1>N97.9</DG1.3. .~.~<DG1.3.1> N97.9</DG1.3.1><DG1.3.1>N97.9</DG1.3.1><DG1.3.1>N97.9</DG1.3.1><DG1.3.1 .~.~<DG1.3.1>N97.9</DG1.3.1><DG1.3.1>N97.9</DG1.3.1><DG1.3.1>N97.9</DG1.3.1><DG1 .3.1 .~.~<DG1.3.1>N97.9</DG1.3.1><DG1.3.1> N97.9</DG1.3.1><DG1.3.1>N97.9</DG1.3.1><DG1.3.1 .~.~<DG1.3.1>N97.9</DG1.3.1><DG1.3.1>N97.9</DG1.3.1><DG1.3.1>N97.9</DG1.3.1><DG1 .3.1 .~.~<DG1.3.1>N97.9</DG1.3.1><DG1.3.1>N97.9</DG1.3.1><DG1.3.1> N97.9</DG1.3.1><DG1.3.1 .~.~<DG1.3.1>N97.9</DG1.3.1><DG1.3.1>N97.9</DG1.3.1><DG1.3.1>N97.9</DG1.3.1><DG1 .3.1 .~.~<DG1.3.1>N97.9</DG1.3.1><DG1.3.1>N97.9</DG1.3.1><DG1.3.1>N97.9</DG1.3.1> <DG1.3.1 .~.~<DG1.3.1>N97.9</DG1.3.1><DG1.3.1>N97.9</DG1.3.1><DG1.3.1>N97.9</DG1.3.1><DG1 .3.1 .~.~<DG1.3.1>N97.9</DG1.3.1><DG1.3.1>N97.9</DG1.3.1><DG1.3.1>N97.9</DG1.3.1><DG1 .3.1 ID Date Data Source [id number] 12/29/2019 10:30:00 AM EDT [facility] ([facility]) Name Value Range Interpretation Code Description Data Joseline rce(s) Supporting Document(s) HCG Serum Qual Laboratory test result [facility] ([facility]) .~.~<DG1.3.1>N97.9</DG1.3.1><DG1.3.1>N97.9</DG1.3.1><DG1.3.1>N97.9</DG1.3.1><DG1 .3.1 Is patient fasting? N~.~.~<DG1.3.1>N97.9</DG1.3.1><DG1.3.1>N97.9</DG1.3.1><DG1.3.1>N97.9</DG1.3. .~.~<DG1.3.1> N97.9</DG1.3.1><DG1.3.1>N97.9</DG1.3.1><DG1.3.1>N97.9</DG1.3.1><DG1.3.1 .~.~<DG1.3.1>N97.9</DG1.3.1><DG1.3.1>N97.9</DG1.3.1><DG1.3.1>N97.9</DG1.3.1><DG1 .3.1 .~.~<DG1.3.1>N97.9</DG1.3.1><DG1.3.1> N97.9</DG1.3.1><DG1.3.1>N97.9</DG1.3.1><DG1.3.1 .~.~<DG1.3.1>N97.9</DG1.3.1><DG1.3.1>N97.9</DG1.3.1><DG1.3.1>N97.9</DG1.3.1><DG1 .3.1 .~.~<DG1.3.1>N97.9</DG1.3.1><DG1.3.1>N97.9</DG1.3.1><DG1.3.1> N97.9</DG1.3.1><DG1.3.1 .~.~<DG1.3.1>N97.9</DG1.3.1><DG1.3.1>N97.9</DG1.3.1><DG1.3.1>N97.9</DG1.3.1><DG1 .3.1 .~.~<DG1.3.1>N97.9</DG1.3.1><DG1.3.1>N97.9</DG1.3.1><DG1.3.1>N97.9</DG1.3.1> <DG1.3.1 .~.~<DG1.3.1>N97.9</DG1.3.1><DG1.3.1>N97.9</DG1.3.1><DG1.3.1>N97.9</DG1.3.1><DG1 .3.1 .~.~<DG1.3.1>N97.9</DG1.3.1><DG1.3.1>N97.9</DG1.3.1><DG1.3.1>N97.9</DG1.3.1><DG1 .3.1 HCG Serum Reenter [facility] .~.~<DG1.3.1>N97.9</DG1.3.1><DG1.3.1>N97.9</DG1.3.1><DG1.3.1>N97.9</DG1.3.1><DG1 .3.1 Is patient fasting? N~.~.~<DG1.3.1>N97.9</DG1.3.1><DG1.3.1>N97.9</DG1.3.1><DG1.3.1>N97.9</DG1.3. .~.~<DG1.3.1> N97.9</DG1.3.1><DG1.3.1>N97.9</DG1.3.1><DG1.3.1>N97.9</DG1.3.1><DG1.3.1 .~.~<DG1.3.1>N97.9</DG1.3.1><DG1.3.1>N97.9</DG1.3.1><DG1.3.1>N97.9</DG1.3.1><DG1 .3.1 .~.~<DG1.3.1>N97.9</DG1.3.1><DG1.3.1> N97.9</DG1.3.1><DG1.3.1>N97.9</DG1.3.1><DG1.3.1 .~.~<DG1.3.1>N97.9</DG1.3.1><DG1.3.1>N97.9</DG1.3.1><DG1.3.1>N97.9</DG1.3.1><DG1 .3.1 .~.~<DG1.3.1>N97.9</DG1.3.1><DG1.3.1>N97.9</DG1.3.1><DG1.3.1> N97.9</DG1.3.1><DG1.3.1 .~.~<DG1.3.1>N97.9</DG1.3.1><DG1.3.1>N97.9</DG1.3.1><DG1.3.1>N97.9</DG1.3.1><DG1 .3.1 .~.~<DG1.3.1>N97.9</DG1.3.1><DG1.3.1>N97.9</DG1.3.1><DG1.3.1>N97.9</DG1.3.1> <DG1.3.1 .~.~<DG1.3.1>N97.9</DG1.3.1><DG1.3.1>N97.9</DG1.3.1><DG1.3.1>N97.9</DG1.3.1><DG1 .3.1 .~.~<DG1.3.1>N97.9</DG1.3.1><DG1.3.1>N97.9</DG1.3.1><DG1.3.1>N97.9</DG1.3.1><DG1 .3.1 ID Date Data Source [id number] 12/29/2019 10:30:00 AM EDT [facility] ([facility]) Name Value Range Interpretation Code Description Data Joseline rce(s) Supporting Document(s) Follitropin [Units/volume] in Serum or Plasma 6.0 mIU/mL [facility] ([facility]) .~.~<DG1.3.1>N97.9</DG1.3.1><DG1.3.1>N97.9</DG1.3.1><DG1.3.1>N97.9</DG1.3.1><DG1 .3.1 Is patient fasting? N~.~.~<DG1.3.1>N97.9</DG1.3.1><DG1.3.1>N97.9</DG1.3.1><DG1.3.1>N97.9</DG1.3. .~.~<DG1.3.1> N97.9</DG1.3.1><DG1.3.1>N97.9</DG1.3.1><DG1.3.1>N97.9</DG1.3.1><DG1.3.1 .~.~<DG1.3.1>N97.9</DG1.3.1><DG1.3.1>N97.9</DG1.3.1><DG1.3.1>N97.9</DG1.3.1><DG1 .3.1 .~.~<DG1.3.1>N97.9</DG1.3.1><DG1.3.1> N97.9</DG1.3.1><DG1.3.1>N97.9</DG1.3.1><DG1.3.1 .~.~<DG1.3.1>N97.9</DG1.3.1><DG1.3.1>N97.9</DG1.3.1><DG1.3.1>N97.9</DG1.3.1><DG1 .3.1 .~.~<DG1.3.1>N97.9</DG1.3.1><DG1.3.1>N97.9</DG1.3.1><DG1.3.1> N97.9</DG1.3.1><DG1.3.1 .~.~<DG1.3.1>N97.9</DG1.3.1><DG1.3.1>N97.9</DG1.3.1><DG1.3.1>N97.9</DG1.3.1><DG1 .3.1 .~.~<DG1.3.1>N97.9</DG1.3.1><DG1.3.1>N97.9</DG1.3.1><DG1.3.1>N97.9</DG1.3.1> <DG1.3.1 .~.~<DG1.3.1>N97.9</DG1.3.1><DG1.3.1>N97.9</DG1.3.1><DG1.3.1>N97.9</DG1.3.1><DG1 .3.1 .~.~<DG1.3.1>N97.9</DG1.3.1><DG1.3.1>N97.9</DG1.3.1><DG1.3.1>N97.9</DG1.3.1><DG1 .3.1 Prolactin [Mass/volume] in Serum or Plasma 24.6 ng/mL 4.8-2 3.3 Above high normal [facility] ([facility]) .~.~<DG1.3.1>N97.9</DG1.3.1><DG1.3.1>N97.9</DG1.3.1><DG1.3.1>N97.9</DG1.3.1><DG1 .3.1 Is patient fasting? N~.~.~<DG1.3.1>N97.9</DG1.3.1><DG1.3.1>N97.9</DG1.3.1><DG1.3.1>N97.9</DG1.3. .~.~<DG1.3.1> N97.9</DG1.3.1><DG1.3.1>N97.9</DG1.3.1><DG1.3.1>N97.9</DG1.3.1><DG1.3.1 .~.~<DG1.3.1>N97.9</DG1.3.1><DG1.3.1>N97.9</DG1.3.1><DG1.3.1>N97.9</DG1.3.1><DG1 .3.1 .~.~<DG1.3.1>N97.9</DG1.3.1><DG1.3.1> N97.9</DG1.3.1><DG1.3.1>N97.9</DG1.3.1><DG1.3.1 .~.~<DG1.3.1>N97.9</DG1.3.1><DG1.3.1>N97.9</DG1.3.1><DG1.3.1>N97.9</DG1.3.1><DG1 .3.1 .~.~<DG1.3.1>N97.9</DG1.3.1><DG1.3.1>N97.9</DG1.3.1><DG1.3.1> N97.9</DG1.3.1><DG1.3.1 .~.~<DG1.3.1>N97.9</DG1.3.1><DG1.3.1>N97.9</DG1.3.1><DG1.3.1>N97.9</DG1.3.1><DG1 .3.1 .~.~<DG1.3.1>N97.9</DG1.3.1><DG1.3.1>N97.9</DG1.3.1><DG1.3.1>N97.9</DG1.3.1> <DG1.3.1 .~.~<DG1.3.1>N97.9</DG1.3.1><DG1.3.1>N97.9</DG1.3.1><DG1.3.1>N97.9</DG1.3.1><DG1 .3.1 .~.~<DG1.3.1>N97.9</DG1.3.1><DG1.3.1>N97.9</DG1.3.1><DG1.3.1>N97.9</DG1.3.1><DG1 .3.1 Thyrotropin [Units/volume] in Serum or Plasma 1.54 uIU/mL 0.47-5.01 [facility] ([facility]) .~.~<DG1.3.1>N97.9</DG1.3.1><DG1.3.1>N97.9</DG1.3.1><DG1.3.1>N97.9</DG1.3.1><DG1 .3.1 Is patient fasting? N~.~.~<DG1.3.1>N97.9</DG1.3.1><DG1.3.1>N97.9</DG1.3.1><DG1.3.1>N97.9</DG1.3. .~.~<DG1.3.1> N97.9</DG1.3.1><DG1.3.1>N97.9</DG1.3.1><DG1.3.1>N97.9</DG1.3.1><DG1.3.1 .~.~<DG1.3.1>N97.9</DG1.3.1><DG1.3.1>N97.9</DG1.3.1><DG1.3.1>N97.9</DG1.3.1><DG1 .3.1 .~.~<DG1.3.1>N97.9</DG1.3.1><DG1.3.1> N97.9</DG1.3.1><DG1.3.1>N97.9</DG1.3.1><DG1.3.1 .~.~<DG1.3.1>N97.9</DG1.3.1><DG1.3.1>N97.9</DG1.3.1><DG1.3.1>N97.9</DG1.3.1><DG1 .3.1 .~.~<DG1.3.1>N97.9</DG1.3.1><DG1.3.1>N97.9</DG1.3.1><DG1.3.1> N97.9</DG1.3.1><DG1.3.1 .~.~<DG1.3.1>N97.9</DG1.3.1><DG1.3.1>N97.9</DG1.3.1><DG1.3.1>N97.9</DG1.3.1><DG1 .3.1 .~.~<DG1.3.1>N97.9</DG1.3.1><DG1.3.1>N97.9</DG1.3.1><DG1.3.1>N97.9</DG1.3.1> <DG1.3.1 .~.~<DG1.3.1>N97.9</DG1.3.1><DG1.3.1>N97.9</DG1.3.1><DG1.3.1>N97.9</DG1.3.1><DG1 .3.1 .~.~<DG1.3.1>N97.9</DG1.3.1><DG1.3.1>N97.9</DG1.3.1><DG1.3.1>N97.9</DG1.3.1><DG1 .3.1 Lutropin [Units/volume] in Serum or Plasma 13.3 mIU/mL [facility]) .~.~<DG1.3.1>N97.9</DG1.3.1><DG1.3.1>N97.9</DG1.3.1><DG1.3.1>N97.9</DG1.3.1><DG1 .3.1 Is patient fasting? N~.~.~<DG1.3.1>N97.9</DG1.3.1><DG1.3.1>N97.9</DG1.3.1><DG1.3.1>N97.9</DG1.3. .~.~<DG1.3.1> N97.9</DG1.3.1><DG1.3.1>N97.9</DG1.3.1><DG1.3.1>N97.9</DG1.3.1><DG1.3.1 .~.~<DG1.3.1>N97.9</DG1.3.1><DG1.3.1>N97.9</DG1.3.1><DG1.3.1>N97.9</DG1.3.1><DG1 .3.1 .~.~<DG1.3.1>N97.9</DG1.3.1><DG1.3.1> N97.9</DG1.3.1><DG1.3.1>N97.9</DG1.3.1><DG1.3.1 .~.~<DG1.3.1>N97.9</DG1.3.1><DG1.3.1>N97.9</DG1.3.1><DG1.3.1>N97.9</DG1.3.1><DG1 .3.1 .~.~<DG1.3.1>N97.9</DG1.3.1><DG1.3.1>N97.9</DG1.3.1><DG1.3.1> N97.9</DG1.3.1><DG1.3.1 .~.~<DG1.3.1>N97.9</DG1.3.1><DG1.3.1>N97.9</DG1.3.1><DG1.3.1>N97.9</DG1.3.1><DG1 .3.1 .~.~<DG1.3.1>N97.9</DG1.3.1><DG1.3.1>N97.9</DG1.3.1><DG1.3.1>N97.9</DG1.3.1> <DG1.3.1 .~.~<DG1.3.1>N97.9</DG1.3.1><DG1.3.1>N97.9</DG1.3.1><DG1.3.1>N97.9</DG1.3.1><DG1 .3.1 .~.~<DG1.3.1>N97.9</DG1.3.1><DG1.3.1>N97.9</DG1.3.1><DG1.3.1>N97.9</DG1.3.1><DG1 .3.1 Testosterone Free [Mass/volume] in Serum or Plasma 1.4 pg/mL 0.0-4.2 [facility] ([facility]) .~.~<DG1.3.1>N97.9</DG1.3.1><DG1.3.1>N97.9</DG1.3.1><DG1.3.1>N97.9</DG1.3.1><DG1 .3.1 Is patient fasting? N~.~.~<DG1.3.1>N97.9</DG1.3.1><DG1.3.1>N97.9</DG1.3.1><DG1.3.1>N97.9</DG1.3. .~.~<DG1.3.1> N97.9</DG1.3.1><DG1.3.1>N97.9</DG1.3.1><DG1.3.1>N97.9</DG1.3.1><DG1.3.1 .~.~<DG1.3.1>N97.9</DG1.3.1><DG1.3.1>N97.9</DG1.3.1><DG1.3.1>N97.9</DG1.3.1><DG1 .3.1 .~.~<DG1.3.1>N97.9</DG1.3.1><DG1.3.1> N97.9</DG1.3.1><DG1.3.1>N97.9</DG1.3.1><DG1.3.1 .~.~<DG1.3.1>N97.9</DG1.3.1><DG1.3.1>N97.9</DG1.3.1><DG1.3.1>N97.9</DG1.3.1><DG1 .3.1 .~.~<DG1.3.1>N97.9</DG1.3.1><DG1.3.1>N97.9</DG1.3.1><DG1.3.1> N97.9</DG1.3.1><DG1.3.1 .~.~<DG1.3.1>N97.9</DG1.3.1><DG1.3.1>N97.9</DG1.3.1><DG1.3.1>N97.9</DG1.3.1><DG1 .3.1 .~.~<DG1.3.1>N97.9</DG1.3.1><DG1.3.1>N97.9</DG1.3.1><DG1.3.1>N97.9</DG1.3.1> <DG1.3.1 .~.~<DG1.3.1>N97.9</DG1.3.1><DG1.3.1>N97.9</DG1.3.1><DG1.3.1>N97.9</DG1.3.1><DG1 .3.1 .~.~<DG1.3.1>N97.9</DG1.3.1><DG1.3.1>N97.9</DG1.3.1><DG1.3.1>N97.9</DG1.3.1><DG1 .3.1 Glucose [Mass/volume] in Serum or Plasma 92 mg/dL 65-110 [facility] ([facility]) .~.~<DG1.3.1>N97.9</DG1.3.1><DG1.3.1>N97.9</DG1.3.1><DG1.3.1>N97.9</DG1.3.1><DG1 .3.1 Is patient fasting? N~.~.~<DG1.3.1>N97.9</DG1.3.1><DG1.3.1>N97.9</DG1.3.1><DG1.3.1>N97.9</DG1.3. .~.~<DG1.3.1> N97.9</DG1.3.1><DG1.3.1>N97.9</DG1.3.1><DG1.3.1>N97.9</DG1.3.1><DG1.3.1 .~.~<DG1.3.1>N97.9</DG1.3.1><DG1.3.1>N97.9</DG1.3.1><DG1.3.1>N97.9</DG1.3.1><DG1 .3.1 .~.~<DG1.3.1>N97.9</DG1.3.1><DG1.3.1> N97.9</DG1.3.1><DG1.3.1>N97.9</DG1.3.1><DG1.3.1 .~.~<DG1.3.1>N97.9</DG1.3.1><DG1.3.1>N97.9</DG1.3.1><DG1.3.1>N97.9</DG1.3.1><DG1 .3.1 .~.~<DG1.3.1>N97.9</DG1.3.1><DG1.3.1>N97.9</DG1.3.1><DG1.3.1> N97.9</DG1.3.1><DG1.3.1 .~.~<DG1.3.1>N97.9</DG1.3.1><DG1.3.1>N97.9</DG1.3.1><DG1.3.1>N97.9</DG1.3.1><DG1 .3.1 .~.~<DG1.3.1>N97.9</DG1.3.1><DG1.3.1>N97.9</DG1.3.1><DG1.3.1>N97.9</DG1.3.1> <DG1.3.1 .~.~<DG1.3.1>N97.9</DG1.3.1><DG1.3.1>N97.9</DG1.3.1><DG1.3.1>N97.9</DG1.3.1><DG1 .3.1 .~.~<DG1.3.1>N97.9</DG1.3.1><DG1.3.1>N97.9</DG1.3.1><DG1.3.1>N97.9</DG1.3.1><DG1 .3.1 17-Hydroxyprogesterone [Mass/volume] in Serum or Plasma 62 ng/dL [facility]) .~.~<DG1.3.1>N97.9</DG1.3.1><DG1.3.1>N97.9</DG1.3.1><DG1.3.1>N97.9</DG1.3.1><DG1 .3.1 Is patient fasting? N~.~.~<DG1.3.1>N97.9</DG1.3.1><DG1.3.1>N97.9</DG1.3.1><DG1.3.1>N97.9</DG1.3. .~.~<DG1.3.1> N97.9</DG1.3.1><DG1.3.1>N97.9</DG1.3.1><DG1.3.1>N97.9</DG1.3.1><DG1.3.1 .~.~<DG1.3.1>N97.9</DG1.3.1><DG1.3.1>N97.9</DG1.3.1><DG1.3.1>N97.9</DG1.3.1><DG1 .3.1 .~.~<DG1.3.1>N97.9</DG1.3.1><DG1.3.1> N97.9</DG1.3.1><DG1.3.1>N97.9</DG1.3.1><DG1.3.1 .~.~<DG1.3.1>N97.9</DG1.3.1><DG1.3.1>N97.9</DG1.3.1><DG1.3.1>N97.9</DG1.3.1><DG1 .3.1 .~.~<DG1.3.1>N97.9</DG1.3.1><DG1.3.1>N97.9</DG1.3.1><DG1.3.1> N97.9</DG1.3.1><DG1.3.1 .~.~<DG1.3.1>N97.9</DG1.3.1><DG1.3.1>N97.9</DG1.3.1><DG1.3.1>N97.9</DG1.3.1><DG1 .3.1 .~.~<DG1.3.1>N97.9</DG1.3.1><DG1.3.1>N97.9</DG1.3.1><DG1.3.1>N97.9</DG1.3.1> <DG1.3.1 .~.~<DG1.3.1>N97.9</DG1.3.1><DG1.3.1>N97.9</DG1.3.1><DG1.3.1>N97.9</DG1.3.1><DG1 .3.1 .~.~<DG1.3.1>N97.9</DG1.3.1><DG1.3.1>N97.9</DG1.3.1><DG1.3.1>N97.9</DG1.3.1><DG1 .3.1 Dehydroepiandrosterone sulfate (DHEA-S) [Mass/volume] in Serum or Plasma 107.0 ug/dL 84.8-378.0 [facility] ([facility]) .~.~<DG1.3.1>N97.9</DG1.3.1><DG1.3.1>N97.9</DG1.3.1><DG1.3.1>N97.9</DG1.3.1><DG1 .3.1 Is patient fasting? N~.~.~<DG1.3.1>N97.9</DG1.3.1><DG1.3.1>N97.9</DG1.3.1><DG1.3.1>N97.9</DG1.3. .~.~<DG1.3.1> N97.9</DG1.3.1><DG1.3.1>N97.9</DG1.3.1><DG1.3.1>N97.9</DG1.3.1><DG1.3.1 .~.~<DG1.3.1>N97.9</DG1.3.1><DG1.3.1>N97.9</DG1.3.1><DG1.3.1>N97.9</DG1.3.1><DG1 .3.1 .~.~<DG1.3.1>N97.9</DG1.3.1><DG1.3.1> N97.9</DG1.3.1><DG1.3.1>N97.9</DG1.3.1><DG1.3.1 .~.~<DG1.3.1>N97.9</DG1.3.1><DG1.3.1>N97.9</DG1.3.1><DG1.3.1>N97.9</DG1.3.1><DG1 .3.1 .~.~<DG1.3.1>N97.9</DG1.3.1><DG1.3.1>N97.9</DG1.3.1><DG1.3.1> N97.9</DG1.3.1><DG1.3.1 .~.~<DG1.3.1>N97.9</DG1.3.1><DG1.3.1>N97.9</DG1.3.1><DG1.3.1>N97.9</DG1.3.1><DG1 .3.1 .~.~<DG1.3.1>N97.9</DG1.3.1><DG1.3.1>N97.9</DG1.3.1><DG1.3.1>N97.9</DG1.3.1> <DG1.3.1 .~.~<DG1.3.1>N97.9</DG1.3.1><DG1.3.1>N97.9</DG1.3.1><DG1.3.1>N97.9</DG1.3.1><DG1 .3.1 .~.~<DG1.3.1>N97.9</DG1.3.1><DG1.3.1>N97.9</DG1.3.1><DG1.3.1>N97.9</DG1.3.1><DG1 .3.1 ID Date Data Source [id number] 01/03/2020 06:14:00 AM EDT [facility] Name Value Range Interpretation Code Description Data Joseline rce(s) Supporting Document(s) INSULIN FREE & TOTAL [facility] Test(s) 533149-12-WK Progesterone LCMSwa s developed and its performance characteristics determinedby [facility]. It has not been cleared or approved by the Foodand Drug Administration. Insulin Free [Units/volume] in Serum or Plasma 7.7 uU/mL [facility] Reference Range:Pubertal Children andAdu lts (fasting): 0 - 17 Insulin [Units/volume] in Serum or Plasma 7.7 uU/mL [facility] Non-Diabetic: In the absence of insulin -binding antibodies,the free and total insulin assays are equivalent. However,this assay is intended for use in diabetics with insulinautoantibody present. Measurement is performed onacid- treated samples and, therefore, the sensitivity andabsolute values by this method may differ from our directinsulin ICMA.Insulin Dependent Diabetic Patients: Free Insulin levelsvary depending on the capacity and affinity of circulatinginsulin-binding antibodies and the dose of insulin given tothe patient. Total insulin levels represent free insulinand antibody bound insulin fractions.This test was developed and its performance characteristicsdetermined by [facility]. It has not been cleared or approvedby the Food and Drug Administration. ID Date Data Source [id number] 01/02/2020 06:53:00 AM EDT [facility] Name Value Range Interpretation Code Description Data Joseline rce(s) Supporting Document(s) Progesterone [Mass/volume] in Serum or Plasma 0.1 ng/mL [facility] Foll icular phase 0.1 - 0.9 Luteal phase 1.8 - 23.9 Ovulation phase 0.1 - 12.0 First trimester 11.0 - 44.3 Second trimester 25.4 - 83.3 Third trimester 58.7 - 214.0 Postmenopausal 0.0 - 0.1 ID Date Data Source [id number] 01/02/2020 06:53:00 AM EDT [facility] Name Value Range Interpretation Code Description Data Joseline rce(s) Supporting Document(s) Testosterone Free [Mass/volume] in Serum or Plasma 1.4 pg/mL 0.0-4.2 [facility] ID Date Data Source [id number] 01/02/2020 06:53:00 AM EDT [facility] Name Value Range Interpretation Code Description Data Joseline rce(s) Supporting Document(s) 17-Hydroxyprogesterone [Mass/volume] in Serum or Plasma 62 ng/dL [facility] Adult Female Follicular 15 - 70 Luteal 35 - 290 ID Date Data Source [id number] 01/02/2020 06:53:00 AM EDT [facility] Name Value Range Interpretation Code Description Data Joseline rce(s) Supporting Document(s) Prolactin [Mass/volume] in Serum or Plasma 24.6 ng/mL 4.8-23.3 [facility] ID Date Data Source [id number] 01/02/2020 06:53:00 AM EDT [facility] Name Value Range Interpretation Code Description Data Joseline rce(s) Supporting Document(s) Follitropin [Units/volume] in Serum or Plasma 6.0 mIU/mL [facility] Adult Female: Follicular phase 3.5 - 12.5 Ovulation phase 4.7 - 21.5 Luteal phase 1.7 - 7.7 Postmenopausal 25.8 - 134.8 ID Date Data Source [id number] 01/02/2020 06:52:00 AM EDT [facility] Name Value Range Interpretation Code Description Data Joseline rce(s) Supporting Document(s) Lutropin [Units/volume] in Serum or Plasma 13.3 mIU/mL [facility] Adult Female: Follicular phase 2.4 - 12.6 Ovulation phase 14.0 - 95.6 Luteal phase 1.0 - 11.4 Postmenopausal 7.7 - 58.5 ID Date Data Source [id number] 01/02/2020 06:52:00 AM EDT [facility] Name Value Range Interpretation Code Description Data Joseline rce(s) Supporting Document(s) Dehydroepiandrosterone sulfate (DHEA-S) [Mass/volume] in Serum or Plasma 107.0 ug/dL 84.8-378.0 [facility] ID Date Data Source [id number] 12/29/2019 11:33:00 AM EDT [facility] Value Range Interpretation Code Description Data Joseline rce(s) Supporting Document(s) Thyrotropin [Units/volume] in Serum or Plasma by Detec tion limit <= 0.05 mIU/L 1.54 uIU/mL 0.47 - 5.01 [facility] ID Date Data Source [id number] 12/29/2019 11:27:00 AM EDT [facility] Value Range Interpretation Code Description Data Joseline rce(s) Supporting Document(s) Glucose [Mass/volume] in Serum or Plasma 92 MG/DL 65 - 110 [facility] ID Date Data Source [id number] 12/29/2019 11:16:00 AM EDT [facility] Name Value Range Interpretation Code Description Data Joseline rce(s) Supporting Document(s) HCG SERUM QUAL NEGATIVE NORMAL: NEGATIVE [facility] HCG SERUM QL REENTER NEGATIVE NORMAL: NEGATIVE [facility] { KIT LOT # [id number] ){ KIT EXP DATE 06/01/21 ){ PROCEDURAL CONTROL VALID ) ID Date Data Source [id number] 12/29/2019 10:13:00 AM EDT [facility] ([facility]) Name Value Range Interpretation Code Description Data Joseline rce(s) Supporting Document(s) Chlamydia sp DNA [Presence] in Urine by Probe and targ et amplification method Laboratory test result [facility] ([facility]) ID Date Data Source [id number] 12/29/2019 10:12:00 AM EDT [facility] ([facility]) Name Value Range Interpretation Code Description Data Joseline rce(s) Supporting Document(s) Inhouse Wet Mount Laboratory test result [facility] ([facility]) ID Date Data Source [id number] 12/29/2019 10:09:00 AM EDT [facility] ([facility]) Name Value Range Interpretation Code Description Data Joseline rce(s) Supporting Document(s) Source: Laboratory test result [facility] ([facility]) {SPECIMEN TYPE: RANDOM Chlamydia trachomatis,Tracee Laboratory test result [facility] ([facility]) {SPECIMEN TYPE: RANDOM Neisseria gonorrhoeae,Tracee Laboratory test result [facility] ([facility]) {SPECIMEN TYPE: RANDOM ID Date Data Source [id number] 12/29/2019 10:09:00 AM EDT [facility] ([facility]) Name Value Range Interpretation Code Description Data Joseline rce(s) Supporting Document(s) Bacteria identified in Urine by Culture Laboratory test result [facility] ([facility]) Culture Urine Laboratory test result [facility] ([facility]) {SPECIMEN TYPE: RANDOM ID Date Data Source [id number] 12/31/2019 06:35:00 AM EDT [facility] Name Value Range Interpretation Code Description Data Joseline rce(s) Supporting Document(s) SOURCE: Random Void [facility] Chlamydia trachomatis rRNA [Presence] in Unspecified specimen by Probe and target amplification method Negative Negative [facility] Neisseria gonorrhoeae rRNA [Presence] in Unspecified specimen by Probe and target amplification method Negative Negative [facility] ID Date Data Source [id number] 12/31/2019 06:35:00 AM EDT [facility] Name Value Range Interpretation Code Description Data Joseline rce(s) Supporting Document(s) CULTURE URINE [facility] _CULTURE URINE_$$[id number]$$[id number]$$[id number]$$[id number]$$[id number]$$530574$$[id number]$$[id number]$$[id number]$$ 185455$$611498$$129849$$095955$$190339$$441319$$650510$$215363$$053234$$609578$$ 972324$$183978$$717217$$588610$$699506$$222219$$217804$$[id number] -- Continued on next page --Patient: INDIO Zamudio Order: [id number] Page 2Culture: CULTURE URINE Status: Final ====$$[id number]$$[id number] DATE/TIME: 12/31/2019 03:05Culture: CULTURE URINE Status: FinalIsolate 1 Beta hemolytic Streptococcus, group B Flag: A . . . . . . .45,000 Colonies/mLPenicillin and ampicillin are drugs of choice for treatment ofbeta-hemolytic streptococcal infections. Susceptibility testing ofpenicillins and other beta-lactam agents approved by the FDA fortreatment of beta-hemolytic streptococcal infections need not beperformed routinely because nonsusceptible isolates are extremelyrare in any beta-hemolytic streptococcus and have not been reportedfor Streptococcus pyog frankie (group A). (CLSI)Urine Culture,Comprehensive: P1Beta hemolytic Streptococcus, group B Flag: AP1 Test performed by: [facility] CLIA #: [id number] [address] [place] [address] [id number] [facility] [id number] Director : Stewart Ruiz MD NPI #:[employer] Swe[employer] Operator : [email or web address] REF ID Date Data Source [id number] 12/29/2019 10:09:00 AM EDT [facility] ([facility]) Name Value Range Interpretation Code Description Data Joseline rce(s) Supporting Document(s) Urine Chlamydia & GC Laboratory test result [facility] ([facility]) ID Date Data Source [id number] - CHLAMYDIA, GC & TRICH AMP (Microbiology) 10/13/2019 12:00:00 AM EST [facility] Name Value Range Interpretation Code Description Data Joseline rce(s) Supporting Document(s) NOT DETECTED NEGATIVE Trichomonas vaginalis ( AMP) [facility] ID Date Data Source [id number] 07/28/2019 02:05:00 PM EST [facility] ([facility]) Name Value Range Interpretation Code Description Data Joseline rce(s) Supporting Document(s) Inhouse Urine Test [facility] Procedure Social History Code Duration Value Status Description Data Source(s ) Smoking 09/02/2020 12:00:00 AM EST Never Smoker completed Never S moker [facility] ([facility] Smoking 12/25/2019 12:00:00 AM EDT Patient has never smoked co mpleted Patient has never smoked [facility] ([facility] ) Vital Signs ID Date Data Source UNK Name Value Range Interpretation Code Description Data Source(s) Body surface area Derived from formula 1.85 m2 1.85 m2 [facility] ([facility]) Body mass index (BMI) [Ratio] 33.8 kg/m2 33.8 k g/m2 [facility] ([facility]) Body height 62 [in_i] 62 [in_i] [facility] ([facility]) 5'2" Body weight 83.916 kg 83.916 kg [facility] ([facility]) Body weight 185.00 [lb_av] 185.00 [lb_av] [facility] ([facility]) Body temperature 96.9 [degF] 96.9 [degF] [facility] ([facility]) Heart rate 73 /min 73 /min [facility] ([facility]) Diastolic blood pressure 82 mm[Hg] 82 mm[Hg] [facility] ([facility]) Systolic blood pressure 114 mm[Hg] 114 mm[Hg] [facility] ([facility]) Body surface area Derived from formula 1.82 m2 1.82 m2 [facility] ([facility]) Body mass index (BMI) [Ratio] 32.7 kg/m2 32.7 k g/m2 [facility] ([facility]) Body height 62 [in_i] 62 [in_i] [facility] ([facility]) 5'2" Body weight 81.194 kg 81.194 kg [facility] ([facility]) Body weight 179.00 [lb_av] 179.00 [lb_av] [facility] ([facility]) Body temperature 96.2 [degF] 96.2 [degF] [facility] ([facility]) Heart rate 80 /min 80 /min [facility] ([facility]) Diastolic blood pressure 82 mm[Hg] 82 mm[Hg] [facility] ([facility]) Systolic blood pressure 122 mm[Hg] 122 mm[Hg] [facility] ([facility]) Body surface area Derived from formula 1.81 [facility]2 1[facility]81 [facility] Body mass index (BMI) [Ratio] 32.4 kg/m2 32.4 k g/m2 [facility] ([facility]) Body height 62 [in_i] 62 [in_i] [facility] ([facility]) 5'2" Body weight 80.287 kg 80.287 kg [facility] ([facility]) Body weight 177.00 [lb_av] 177.00 [lb_av] MEDEN T ([facility]) Body temperature 97.7 [degF] 97.7 [degF] [facility] ([facility]) Heart rate 72 /min 72 /min [facility] ([facility]) Diastolic blood pressure 66 mm[Hg] 66 mm[Hg] [facility] ([facility]) Systolic blood pressure 116 mm[Hg] 116 mm[Hg] M EDENT ([facility]) Body surface area Derived from formula 1.81 m2 1.81 m2 [facility] ([facility]) Body mass index (BMI) [Ratio] 32.0 kg/m2 32.0 k g/m2 [facility] ([facility]) Body height 62 [in_i] 62 [in_i] [facility] ([facility]) 5'2" Body weight 79.380 kg 79.380 kg [facility] ([facility]) Body weight 175.00 [lb_av] 175.00 [lb_av] MEDEN T ([facility]) Body temperature 97.9 [degF] 97.9 [degF] [facility] ([facility]) Heart rate 66 /min 66 /min [facility] ([facility]) Diastolic blood pressure 73 mm[Hg] 73 mm[Hg] [facility] ([facility]) Systolic blood pressure 119 mm[Hg] 119 mm[Hg] M EDENT ([facility]) Body surface area 1.81 m2 1.81 m2 [facility] ([facility]) Body surface area 1.82 m2 1.82 m2 [facility] ([facility]) Body mass index (BMI) [Ratio] 32.6 kg/m2 32.6 k g/[facility] Body height 62 [in_i] 62 [in_i] [facility] ([facility]) 5'2" Body weight 80.741 kg 80.741 kg [facility] ([facility]) Body weight 178.00 [lb_av] 178.00 [lb_av] MEDEN T ([facility]) Body temperature 98.3 [degF] 98.3 [degF] [facility] ([facility]) Heart rate 73 /min 73 /min [facility] ([facility]) Diastolic blood pressure 75 mm[Hg] 75 mm[Hg] [facility] ([facility]) Systolic blood pressure 110 mm[Hg] 110 mm[Hg] M EDENT ([facility]) Body height 62 [in_i] 62 [in_i] [facility] ([facility]) 5'2" Body weight 78.926 kg 78.926 kg [facility] ([facility]) Body weight 174.00 [lb_av] 174.00 [lb_av] MEDEN T ([facility]) Body temperature 98.0 [degF] 98.0 [degF] [facility] ([facility]) Heart rate 75 /min 75 /min [facility] ([facility]) Diastolic blood pressure 80 mm[Hg] 80 mm[Hg] [facility] ([facility]) Systolic blood pressure 112 mm[Hg] 112 mm[facility]Hg] [facility] Body surface area 1.80 m2 1.80 m2 [facility] ([facility]) Body mass index (BMI) [Ratio] 31.8 kg/m2 31.8 k g/m2 [facility] ([facility]) Body surface area 1.85 m2 1.85 m2 [facility] ([facility]) Body mass index (BMI) [Ratio] 33.8 kg/m2 33.8 k g/m2 [facility] ([facility]) Body height 62 [in_i] 62 [in_i] [facility] ([facility]) 5'2" Body weight 83.916 [facility]16 [facility] Body weight 185.00 [lb_av] 185.00 [lb_av] MEDEN T ([facility]) Body temperature 98.3 [degF] 98.3 [degF] [facility] ([facility]) Heart rate 73 /min 73 /min [facility] ([facility]) Diastolic blood pressure 85 mm[Hg] 85 mm[Hg] [facility] ([facility]) Systolic blood pressure 125 mm[Hg] 125 mm[Hg] [facility] ([facility]) Body weight 83.179 kg 83.179 kg [facility] ([facility], ) Body mass index (BMI) [Ratio] 34.1 kg/m2 34.1 k g/m2 [facility] ([facility], ) Body weight 183.38 [lb_av] 183.38 [lb_av] MEDEN T ([facility], ) Body height 61.5 [in_i] 61.5 [in_i] [facility] ([facility], ) 5'1.50" Body temperature 97.1 [degF] 97.1 [degF] [facility] ([facility], ) Oxygen saturation in Arterial blood by Pulse oximetry 99 % 99 % [facility] ([facility]) Heart rate 76 /min 76 /min [facility] ([facility]) Diastolic blood pressure 82 mm[Hg] 82 mm[Hg] [facility] ([facility]) Systolic blood pressure 126 mm[Hg] 126 mm[Hg] [facility] ([facility]) Body mass index (BMI) [Ratio] 34.0 kg/m2 34.0 k g/m2 [facility] ([facility]) Body weight 180.00 [lb_av] 180.00 [lb_av] MEDEN T ([facility]) Body height 61 [in_i] 61 [in_i] [facility] ([facility]) 5'1" Body weight 88.962 kg 88.962 kg [facility] ([facility]) Body mass index (BMI) [Ratio] 36.5 kg/m2 36.5 k g/m2 [facility] ([facility]) Body weight 196.12 [lb_av] 196.12 [lb_av] MEDEN T ([facility]) Body height 61.5 [in_i] 61.5 [in_i] [facility] ([facility]) 5'1.50" Oxygen saturation in Arterial blood by Pulse oximetry 98 % 98 % [facility] [place] [facility] Heart rate 99 /min 99 /min [facility] ([facility]) Diastolic blood pressure 72 mm[Hg] 72 mm[Hg] [facility] ([facility]) Systolic blood pressure 124 mm[Hg] 124 mm[Hg] [facility] ([facility]) Body surface area 1.88 m2 1.88 m2 [facility] ([facility]) Body mass index (BMI) [Ratio] 35.3 kg/m2 35.3 k g/m2 [facility] ([facility]) Body height 62 [in_i] 62 [in_i] [facility] ([facility]) 5'2" Body weight 87.545 kg 87.545 kg [facility] ([facility]) Body weight 193.00 [lb_av] 193.00 [lb_av] [facility] T ([facility]) Heart rate 70 /min 70 /min [facility] ([facility]) Diastolic blood pressure 82 mm[Hg] 82 mm[Hg] [facility] ([facility]) Systolic blood pressure 120 mm[Hg] 120 mm[Hg] M EDENT ([facility]) Diastolic blood pressure 70 mm[Hg] 70 mm[Hg] eCW1 ([facility]) Systolic blood pressure 117 mm[Hg] 117 mm[Hg] e CW1 ([facility]) Body temperature 99.2 [degF] 99.2 [degF] eCW1 ( [facility]) Respiratory rate 16 /min 16 /min eCW1 ([facility]) Heart rate 68 /min 68 /min eCW1 ([facility]) Body mass index (BMI) [Ratio] 35.84 kg/m2 35.84 kg/m2 eCW1 ([facility]) Body height 62 [in_us] 62 [in_us] eCW1 ([facility]) Body weight Measured 196 [lb_av] 196 [lb_av] eC W1 ([facility]) Body surface area 1.88 m2 1.88 m2 [facility] ([facility]) Body mass index (BMI) [Ratio] 35.3 kg/m2 35.3 k g/m2 [facility] ([facility]) Body height 62 [in_i] 62 [in_i] [facility] ([facility]) 5'2" Body weight 87.545 kg 87.545 kg [facility] ([facility]) Body weight 193.00 [lb_av] 193.00 [lb_av] [facility] T ([facility]) Heart rate 69 /min 69 /min [facility] ([facility]) Diastolic blood pressure 77 mm[Hg] 77 mm[Hg] [facility] ([facility]) Systolic blood pressure 138 mm[Hg] 138 mm[Hg] M EDENT ([facility]) Diastolic blood pressure 90 mm[Hg] 90 mm[Hg] eCW1 ([facility]) Systolic blood pressure 160 mm[Hg] 160 mm[Hg] e CW1 ([facility]) Body temperature [degF] eCW1 ([facility]) Respiratory rate 16 /min 16 /min eCW1 ([facility]) Heart rate 76 /min 76 /min eCW1 ([facility]) Body mass index (BMI) [Ratio] 36.21 kg/m2 36.21 kg/m2 eCW1 ([facility]) Body height 62 [in_us] 62 [in_us] eCW1 ([facility]) Body weight Measured 198 [lb_av] 198 [lb_av] eC W1 ([facility]) Diastolic blood pressure 54 mm[Hg] 54 mm[Hg] eCW1 ([facility]) Systolic blood pressure 122 mm[Hg] 122 mm[Hg] e CW1 ([facility]) Body mass index (BMI) [Ratio] 37.56 kg/m2 37.56 kg/m2 eCW1 ([facility]) Body height 61 [in_us] 61 [in_us] eCW1 ([facility]) Body weight Measured 198.8 [lb_av] 198.8 [lb_av ] eCW1 ([facility]) Body surface area 1.93 m2 1.93 m2 [facility] ([facility]) Body mass index (BMI) [Ratio] 37.3 kg/m2 37.3 k g/m2 [facility] ([facility]) Body height 62 [in_i] 62 [in_i] [facility] ([facility]) 5'2" Body weight 92.534 kg 92.534 kg [facility] ([facility]) Body weight 204.00 [lb_av] 204.00 [lb_av] [facility] T ([facility]) Heart rate 80 /min 80 /min [facility] ([facility]) Diastolic blood pressure 80 mm[Hg] 80 mm[Hg] [facility] ([facility]) Systolic blood pressure 115 mm[Hg] 115 mm[Hg] M EDENT ([facility]) Body surface area 1.93 m2 1.93 m2 [facility] ([facility]) Body mass index (BMI) [Ratio] 37.5 kg/m2 37.5 k g/m2 [facility] ([facility]) Body height 62 [in_i] 62 [in_i] [facility] ([facility]) 5'2" Body weight 92.988 kg 92.988 kg [facility] ([facility]) Body weight 205.00 [lb_av] 205.00 [lb_av] MED[facility] T ([facility]) Diastolic blood pressure 78 mm[Hg] 78 mm[Hg] [facility] ([facility]) Systolic blood pressure 112 mm[Hg] 112 mm[Hg] M EDENT ([facility]) Body surface area 1.93 m2 1.93 m2 [facility] ([facility]) Body mass index (BMI) [Ratio] 37.3 kg/m2 37.3 k g[facility] Body height 62 [in_i] 62 [in_i] [facility] ([facility]) 5'2" Body weight 92.534 kg 92.534 kg [facility] ([facility]) Body weight 204.00 [lb_av] 204.00 [lb_av] [facility] T ([facility]) Heart rate 72 /min 72 /min [facility] ([facility]) Diastolic blood pressure 79 mm[Hg] 79 mm[Hg] [facility] ([facility]) Systolic blood pressure 132 mm[Hg] 132 mm[Hg] M EDENT ([facility]) Body surface area 1.93 m2 1.93 m2 [facility] ([facility]) Body mass index (BMI) [Ratio] 37.3 kg/m2 37.3 k g/m2 [facility] ([facility]) Body height 62 [in_i] 62 [in_i] [facility] ([facility]) 5'2" Body weight 92.534 kg 92.534 kg [facility] ([facility]) Body weight 204.00 [lb_av] 204.00 [lb_av] MED[facility] T ([facility]) Heart rate 76 /min 76 /min [facility] ([facility]) Diastolic blood pressure 67 mm[Hg] 67 mm[Hg] [facility] ([facility]) Systolic blood pressure 146 mm[Hg] 146 mm[Hg[facility] Body surface area 1.93 m2 1.93 m2 [facility] ([facility]) Body mass index (BMI) [Ratio] 37.5 kg/m2 37.5 k g/m2 [facility] ([facility]) Body height 62 [in_i] 62 [in_i] [facility] ([facility]) 5'2" Body weight 92.988 kg 92.988 kg [facility] ([facility]) Body weight 205.00 [lb_av] 205.00 [lb_av] [facility] T ([facility]) Heart rate 60 /min 60 /min [facility] ([facility]) Diastolic blood pressure 60 mm[Hg] 60 mm[Hg] [facility] ([facility]) Systolic blood pressure 100 mm[Hg] 100 mm[Hg[facility] Patient Treatment Plan of Care Planned Activity Planned Date Details Description Data Source (s) Ciprofloxacin 500 MG Oral Tablet [Cipro] 10/13/2019 12:00:00 AM EST eCW1 ([facility]) Fluconazole 150 MG Oral Tablet 10/13/2019 12:00:00 AM EST eCW1 ([facility])
[2020-09-18] MEDS ORDERED: METF-838 (03:21)
[2020-09-18] MEDS ORDERED: LETR2.5T2 (03:21)
[2020-09-18 06:15] VITALS: BP 112/76
--- OUTSIDE RECORDS SUMMARY | 2020-09-18 06:24 | CCD ---
Author Author [facility] Organization [facility] Address Unknown Phone Unavailable Care Team Providers Care Color Making Supervisor Name Role Phone Lizz PACHECO MD Unavailable [...] AVTAR MD Unavailable Unavailable SAUCEDA, FORD YOVANA NUTRITIONISTS Unavailable Unavailable SAUCEDA, FORD YOVANA NUTRITIONISTS Unavailable Unavailable SAUCEDA, FORD YOVANA NUTRITIONISTS Unavailable Unavailable SAUCEDA, FORD YOVANA NUTRITIONISTS Unavailable Unavailable SAUCEDA, FORD YOVANA NUTRITIONISTS Unavailable Unavailable SAUCEDA, FORD YOVANA NUTRITIONISTS Unavailable Unavailable SAUCEDA, FORD YOVANA NUTRITIONISTS Unavailable Unavailable SAUCEDA, FORD YOVANA NUTRITIONISTS Unavailable Unavailable SAUCEDA, FORD YOVANA NUTRITIONISTS Unavailable Unavailable SAUCEDA, FORD YOVANA NUTRITIONISTS Unavailable Unavailable SAUCEDA, FORD YOVANA NUTRITIONISTS Unavailable Unavailable SAUCEDA, FORD YOVANA NUTRITIONISTS Unavailable Unavailable SAUCEDA, FORD YOVANA NUTRITIONISTS Unavailable Unavailable SAUCEDA, FORD YOVANA NUTRITIONISTS Unavailable Unavailable SAUCEDA, FORD YOVANA NUTRITIONISTS Unavailable Unavailable SAUCEDA, FORD YOVANA NUTRITIONISTS Unavailable Unavailable SAUCEDA, FORD YOVANA NUTRITIONISTS Unavailable Unavailable SAUCEDA, FORD YOVANA NUTRITIONISTS Unavailable Unavailable SAUCEDA, FORD YOVANA NUTRITIONISTS Unavailable Unavailable SAUCEDA, FORD YOVANA NUTRITIONISTS Unavailable Unavailable SAUCEDA, FORD YOVANA NUTRITIONISTS Unavailable Unavailable SAUCEDA, FORD YOVANA NUTRITIONISTS Unavailable Unavailable SAUCEDA, FORD YOVANA NUTRITIONISTS Unavailable Unavailable Lizz PACHECO MD Unavailable Unavailable Lizz PACHECO MD Unavailable Unavailable iLzz PACHECO MD Unavailable Unavailable Lizz PACHECO MD [...] is protected by Article 27-F of the [facility] Public Health law. If you continue you may have access to information: Regarding HIV / AIDS; Provided by facilities licensed or operated by the [facility] Office of Mental Health; or Provided by the [facility] Office for People With Developmental Disabilities. If such information is present, then the following [facility] mandated warning applies: This information has [...] law may result in a fine or detention sentence or both. A general authorization for the release of medical or other information is NOT sufficient authorization for further disc losure. Allergies and Adverse Reactions Type Description Substance Reaction Status Data Source(s ) Drug allergy Benadryl Diphenhydramine rash Active eCW1 ([facility]) Encounters Encounter Providers Location Date Indications Data Source(s ) Unknown [address] [facility] [address] 09/09/2020 12:00:00 AM EST eCW1 ([facility]) Outpatient Attender: AVTAR HOLLOWAY MDConsultant: PCP NO 09/02/2020 03:55:00 PM EST - 09/02/2020 03:55:00 PM EST [facility] Outpatient Attender: AVTAR HOLLOWAY MD Family Practice 08/20 03:15:00 PM EST [facility] ([facility]) Outpatient Attender: AVTAR HOLLOWAY MDConsultant: PCP NO 08/04/2020 02:22:00 PM EST - 08/04/2020 03:22:00 PM EST [facility] Outpatient Attender: AVTAR HOLLOWAY MDConsultant: PCP NO 07/06/2020 03:46:00 PM EST - 07/06/2020 03:46:00 PM EST [facility] Outpatient Attender: AVTAR HOLLOWAY MD Family Practice 06/20 02:45:00 PM EST [facility] ([facility]) Outpatient Attender: AVTAR HOLLOWAY MDConsultant: PCP NO 06/03/2020 03:26:00 PM EDT - 06/03/2020 03:26:00 PM EDT [facility] Outpatient Attender: YOVANA PELAYOILL NPConsultant: PCP NO 04/01/2020 01:20:00 PM EDT - 04/01/2020 01:20:00 PM EDT [facility] Out[facility] Attender: YOVANA SAUCEDA NPConsultant: PCP NO 03/24/2020 03:42:00 PM EDT - 03/24/2020 03:42:00 PM EDT [facility] Outpatient Attender: YOVANA SAUCEDA NPConsultant: PCP NO 03/17/2020 04:24:00 PM EDT - 03/17/2020 05:24:00 PM EDT [facility] Outpatient Attender: YOVANA SAUCEDA NPConsultant: PCP NO 03/12/2020 03:14:00 PM EDT - 03/12/2020 03:14:00 PM EDT [facility] Outpatient Attender: YOVANA SAUCEDA NUTRITIONISTS Family Practice 03/11/2020 03 :30:00 PM EDT MED[facility] ([facility]) Outpatient Attender: YOVANA SAUCEDA NPConsultant: PCP NO 03/11/2020 03:11:00 PM EDT - 03/11/2020 03:11:00 PM EDT [facility] Outpatient Attender: YOVANA SAUCEDA NUTRITIONISTS Family Practice 12/29/2019 09 :30:00 AM EDT [facility] ([facility]) Outpatient Attender: YOVANA SAUCEDA NPConsultant: PCP NO 12/29/2019 09:25:00 AM EDT - 12/29/2019 09:25:00 AM EDT [facility] Outpatient Attender: NURA Barajas/Kaylan/Wenceslao/Aric briscoe 11/07/2019 10:30:00 AM EDT MED[facility] ([facility], ) Outpatient Attender: AVTAR HOLLOWAY MDConsultant: PCP NO 11/06/2019 02:59:00 PM EDT - 11/06/2019 02:59:00 PM EDT [facility] [address] [address] 10/28/2019 12:00:00 AM EDT eCW1 ([facility] hospital) Outpatient Attender: AVTAR HOLLOWAY MDConsultant: PCP NO 10/24/2019 03:00:00 PM EST - 10/24/2019 03:00:00 PM EST [facility] [address] [address] 10/13/2019 12:00:00 AM EST eCW1 (Critical access hospital) [facility] [address] [place] [address] 10/03/2019 12:00:00 AM EST eCW1 (Critical access hospital) Outpatient 09/15/2019 01:48:00 PM EST [facility] Outpatient Attender: AVTAR HOLLOWAY MDConsultant: PCP NO 08/22/2019 09:43:00 AM EST - 08/22/2019 09:43:00 AM EST [facility] Outpatient Attender: AVTAR HOLLOWAY MD Family Practice 10/2019 08:45:00 AM EST [facility] ([facility]) Outpatient Attender: AVTAR HOLLOWAY MDConsultant: PCP NO 08/14/2019 03:44:00 PM EST - 08/14/2019 03:44:00 PM EST [facility] Outpatient Attender: AVTAR HOLLOWAY MD Family Practice 07/21 02:45:00 PM EST [facility] ([facility]) Outpatient Attender: AVTAR HOLLOWAY MDConsultant: PCP NO 08/08/2019 01:44:00 PM EST - 08/08/2019 01:44:00 PM EST [facility] Outpatient Attender: AVTAR HOLLOWAY MD Family Practice 07/21 12:45:00 PM EST [facility] ([facility]) Outpatient Attender: MATHEW PACHECO MDConsultant: PCP NO 07/28/2019 01:53:00 PM EST - 07/28/2019 01:53:00 PM EST [facility] Outpatient Attender: MATHEW PACHECO MD Family Practice 01:00:00 PM EST [facility] ([facility]) Outpatient Attender: AVTAR HOLLOWAY MDConsultant: PCP NO 07/21/2019 01:46:00 PM EST - 07/21/2019 01:46:00 PM EST [facility] Outpatient Attender: AVTAR HOLLOWAY MD Family Practice 09/2018 01:00:00 PM EST [facility] ([facility]) Outpatient Attender: AVTAR HOLLOWAY MDConsultant: PCP NO 07/16/2019 03:10:00 PM EST - 07/16/2019 03:10:00 PM EST [facility] Outpatient Attender: AVTAR HOLLOWAY MDConsultant: PCP NO 06/23/2019 09:38:00 AM EST - 06/23/2019 09:38:00 AM EST [facility] Immunizations Vaccine Date Status Description Data Source(s) HPV9 03/11/2020 10:55:00 AM EDT completed M [facility]ENT ([facility]) HPV9 10/24/2019 07:43:00 AM EST completed M [facility] ([facility]) HPV9 07/28/2019 01:17:00 PM EST completed M [facility] ([facility]) Medications Medication Brand Name Start Date Product Form Dose Route Admi nistrative Instructions Pharmacy Instructions Status Indications Reaction Description Data Source(s) 24 HR Metformin hydrochloride 500 MG Extended Release Oral Tablet Metformin HCL ER 07/06/2020 12:00:00 AM EST ORAL active [facility] ([facility]) No Active Medications 07/06/2020 12:00:00 AM EST completed [facility] ([facility]) letrozole 2.5 MG Oral Tablet Letrozole 07/06/2020 12:00:00 AM EST ORAL active [facility] ([facility]) medroxyprogesterone acetate 10 MG Oral Tablet [Provera] Prov era 07/06/2020 12:00:00 AM EST ORAL active M [facility] ([facility]) Phenazopyridine hydrochloride 200 MG Oral Tablet [Pyridium] Pyridium 06/03/2020 12:00:00 AM EDT ORAL completed [facility] ([facility]) Sulfamethoxazole 800 MG / Trimethoprim 160 MG Oral Tablet [B actrim] Bactrim DS 06/03/2020 12:00:00 AM EDT ORAL completed [facility] ([facility]) No Active Medications 06/03/2020 12:00:00 AM EDT completed [facility] ([facility]) Metronidazole 500 MG Oral Tablet Metronidazole 04/01/2020 12:00:00 AM EDT ORAL completed [facility] ([facility]) Fluconazole 150 MG Oral Tablet Fluconazole 04/01/2020 12:00:00 AM EDT ORAL completed [facility] ([facility]) Sprintec 28 Sprintec 28 03/24/2020 12:00:00 AM EDT ORAL completed [facility] ([facility]) No Active Medications 03/11/2020 12:00:00 AM EDT completed [facility] ([facility]) Clindamycin 20 MG/ML Vaginal Cream [Cleocin] Cleocin 12:00:00 AM EDT completed [facility] ([facility]) Nystatin 023213 UNT/ML / Triamcinolone Acetonide 1 MG/ ML Topical Cream Nystatin/Triamcinolone Acetonide 12/31/2019 12:00:00 AM EDT completed [facility] ([facility]) Ampicillin 500 MG Oral Capsule Ampicillin 12/31/2019 12:00:00 AM EDT ORAL completed [facility] ([facility]) Fluconazole 150 MG Oral Tablet Fluconazole 12/29/2019 12:00:00 AM EDT ORAL completed [facility] ([facility]) Metronidazole 500 MG Oral Tablet Metronidazole 12/29/2019 12:00:00 AM EDT ORAL completed [facility] ([facility]) Ibuprofen 800 MG Oral Tablet Ibuprofen 11/27/2019 12:00:00 AM EDT ORAL active [facility] ([facility] ) Sumatriptan 100 MG Oral Tablet Sumatriptan Succinate 11/27/2019 12:00:00 AM EDT ORAL active [facility] ( [facility] ) Alprazolam 0.5 MG Oral Tablet Alprazolam 11/27/2019 12:00:00 AM EDT ORAL active MED[facility] ([facility] ) topiramate 50 MG Oral Tablet Topiramate 11/27/2019 12:00:00 AM EDT active [facility] ([facility] ) No Active Medications 11/07/2019 12:00:00 AM EDT completed [facility] ([facility]) letrozole 2.5 MG Oral Tablet Letrozole 11/06/2019 12:00:00 AM EDT ORAL completed [facility] ([facility]) medroxyprogesterone acetate 10 MG Oral Tablet [Provera] Prov era 11/06/2019 12:00:00 AM EDT ORAL completed [facility] ([facility]) No Active Medications 11/06/2019 12:00:00 AM EDT completed [facility] ([facility]) Fluconazole 150 MG Oral Tablet [Diflucan] Diflucan 10/27/2019 1 2:00:00 AM EDT ORAL completed [facility] ([facility]) Ciprofloxacin 500 MG Oral Tablet [Cipro] Cipro 500 MG Cipro 500 MG 10/13/2019 12:00:00 AM EST active 1 tablet [facility] Fluconazole 150 MG Oral Tablet Fluconazole 150 MG 10/13/2019 12:00: 00 AM EST active 1 tablet eCW1 ([facility]) No Active Medications 08/22/2019 12:00:00 AM EST completed [facility] ([facility]) Fluconazole 150 MG Oral Tablet [Diflucan] Diflucan 08/14/2019 1 2:00:00 AM EST ORAL active [facility] ([facility]) No Active Medications 07/16/2019 12:00:00 AM EST completed [facility] ([facility]) Insurance Providers Payer name Policy type / Coverage type Policy ID Covered democrat ID Covered democrat's relationship to charles Policy Charles Plan Information [facility] [id number] SP [id number] [facility] [place] [id number] [phone] [id number] [facility] [id number] 18 [id number] [facility] [place] [id number] 18 [id number] [facility] [id number] SP [id number] [facility] O [id number] S [phone] [id number] Problems, Conditions, and Diagnoses Code Display Name Description Problem Type Effective Dates Data Source(s) E28.2 [id number] PCOS (polycystic ovarian syndrome) Proble 09/02/2020 12:00:00 AM EST [facility] M20.11 [id number] Hallux valgus (acquired), right foot Prob julieta 09/02/2020 12:00:00 AM EST eCW1 ([facility]) M20.12 [id number] Hallux valgus (acquired), left foot Pr oblem 09/02/2020 12:00:00 AM EST eCW1 [facility]) [id number] Polycystic ovary syndrome Polycystic ovary syndrome Pr oblem 03/11/2020 12:00:00 AM EDT MED[facility] (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 ) 528026866 Migraine with typical aura Migraine with typical aura Problem 11/27/2019 12:00:00 AM EDT MED[facility] ([facility] ) [id number] Chronic tension-type headache Chronic tension-type hea dache Problem 11/27/2019 12:00:00 AM EDT [facility] ([facility] ) [id number] Chronic intractable migraine without aur a Chronic intractable migraine without aura Problem 11/27/2019 12:00:00 AM EDT [facility] ([facility] ) N979 Female infertility, unspecified Female infertility, un specified Diagnosis 09/02/2020 03:55:00 PM [facility] E282 Polycystic ovarian syndrome Polycystic ovarian syndrom e Diagnosis 09/02/2020 03:55:00 PM [facility] [id number] Encounter for gynecological examination (general) (routine) without abnormal findings Encounter for gynecological examination (general) (routine) without abnormal findings Diagnosis 08/04/2020 02:22:00 PM [facility] R300 Dysuria Dysuria Diagnosis 06/03/2020 03:26:00 PM ED T [facility] B373 Candidiasis of vulva and vagina Candidiasis of vulva a nd vagina Diagnosis 04/01/2020 01:20:00 PM EDT [facility] N760 Acute vaginitis Acute vaginitis Diagnosis 04/01/2020 01:2 0:00 PM EDT [facility] [id number] Unspecified ovarian cyst, left side Unspecified ovarian cyst, left side Diagnosis 03/24/2020 03:42:00 PM EDT [facility] R102 Pelvic and perineal pain Pelvic and perineal pain Diag nosis 03/11/2020 03:11:00 PM EDT [facility] Z23 Encounter for immunization Encounter for immunization Diagnosis 03/11/2020 03:11:00 PM EDT [facility] A630 Anogenital (venereal) warts Anogenital (venereal) wart s Diagnosis 10/24/2019 03:00:00 PM [facility] Surgeries/Procedures Procedure Description Date Indications Data Source(s) Magnetic Resonance Angiogtaphy Head W/O Contrast Material(S) 12/01/2019 12:00:00 AM EDT [facility] ([facility] ) Magnetic Resonance Angiogtaphy Head W/O Contrast Material(S) 12/01/2019 12:00:00 AM EDT [facility] ([facility] ) MRI BRAIN BRAIN STEM W/O CONTRAST MATERIAL 12/01/2019 12:00:00 AM EDT [facility] ([facility] ) MRI BRAIN BRAIN STEM W/O CONTRAST MATERIAL 12/01/2019 12:00:00 AM EDT [facility] ([facility] ) MRI SPINAL CANAL CERVICAL W/O CONTRAST MATRL 0 12:00:00 AM EDT [facility] ([facility] ) MRI SPINAL CANAL CERVICAL W/O CONTRAST MATRL 0 12:00:00 AM EDT [facility] ([facility] ) Influenza A+B 10/28/2019 12:00:00 [...] [facility]) Results ID Date Data Source [id number] 09/14/2020 02:00:00 PM EST [facility] Name Value Range Interpretation Code Description Data Joseline rce(s) Supporting Document(s) SARS coronavirus 2 RNA Not Detected [facility] This lab was ordered by [facility] and reported by [facility]. ID Date Data Source [id number] 08/31/2020 12:00:00 PM EST [facility] Name Value Range Interpretation Code Description Data Joseline rce(s) Supporting Document(s) SARS coronavirus 2 RNA Not Detected [facility] This lab was ordered by [facility] and reported by [facility]. ID Date Data Source [id number] 08/24/2020 08:00:00 AM EST [facility] Name Value Range Interpretation Code Description Data Joseline rce(s) Supporting Document(s) SARS coronavirus 2 RNA Not Detected [facility] This lab was ordered by [facility] and reported by [facility]. ID Date Data Source [id number] 08/21/2020 12:00:00 AM EST [facility] Name Value Range Interpretation Code Description Data Joseline rce(s) Supporting Document(s) SARS-CoV2 Rapid Antigen [facility] This lab was ordered by [facility] and reported by [facility]. ID Date Data Source [id number] 08/17/2020 08:36:00 AM EST [facility] Name Value Range Interpretation Code Description Data Joseline rce(s) Supporting Document(s) SARS coronavirus 2 RNA [facility] This lab was ordered by [facility] and reported by [facility]. ID Date Data Source [id number] 08/10/2020 02:00:00 PM EST [facility] Name Value Range Interpretation Code Description Data Joseline rce(s) Supporting Document(s) SARS coronavirus 2 RNA [facility] This lab was ordered by [facility] and reported by [facility]. ID Date Data Source [id number] 08/04/2020 02:25:00 PM EST [facility] ([facility]) Name Value Range Interpretation Code Description Data Joseline rce(s) Supporting Document(s) Progesterone [Mass/volume] in Serum or Plasma 2.6 ng/mL [facility] ([facility]) .~.~Z01.419Z01.419 ID Date Data Source [id number] 08/04/2020 02:25:00 PM EST [facility] ([facility]) Name Value Range Interpretation Code Description Data Joseline rce(s) Supporting Document(s) HCG Serum Qual Laboratory test result [facility] ([facility]) .~.~Z01.419Z01.419 HCG Serum QL [facility] Laboratory test result [facility] ([facility]) .~.~Z01.419Z01.419 ID Date Data Source [id number] 08/06/2020 10:09:00 AM EST [facility] Name Value Range Interpretation Code Description Data Joseline rce(s) Supporting Document(s) Progesterone [Mass/volume] in Serum or Plasma 2.6 ng/mL [facility] Foll icular phase 0.1 - 0.9 Luteal phase 1.8 - 23.9 Ovulation phase 0.1 - 12.0 First trimester 11.0 - 44.3 Second trimester 25.4 - 83.3 Third trimester 58.7 - 214.0 Postmenopausal 0.0 - 0.1 ID Date Data Source [id number] 08/04/2020 03:02:00 PM EST [facility] Name Value Range Interpretation Code Description Data Joseline rce(s) Supporting Document(s) HCG SERUM QUAL NEGATIVE NORMAL: NEGATIVE [facility] HCG SERUM QL REENTER NEGATIVE NORMAL: NEGATIVE [facility] { KIT LOT # [id number] ){ KIT EXP DATE 05.25.21 ){ PROCEDURAL CONTROL VALID ) ID Date Data Source [id number] 08/03/2020 12:27:00 PM EST [facility] Name Value Range Interpretation Code Description Data Joseline rce(s) Supporting Document(s) SARS coronavirus 2 RNA [facility] This lab was ordered by [facility] and reported by [facility]. ID Date Data Source [id number] 07/27/2020 10:03:00 AM EST [facility] Name Value Range Interpretation Code Description Data Joseline rce(s) Supporting Document(s) SARS coronavirus 2 RNA [facility] This lab was ordered by [facility] and reported by [facility]. ID Date Data Source [id number] 07/20/2020 12:00:00 PM EST [facility] Name Value Range Interpretation Code Description Data Joseline rce(s) Supporting Document(s) SARS coronavirus 2 RNA [facility] This lab was ordered by [facility] and reported by [facility]. ID Date Data Source [id number] 07/13/2020 02:45:00 PM EST [facility] Name Value Range Interpretation Code Description Data Joseline rce(s) Supporting Document(s) SARS coronavirus 2 RNA [facility] This lab was ordered by [facility] and reported by [facility]. ID Date Data Source [id number] 07/06/2020 04:13:00 PM EST [facility] ([facility]) Name Value Range Interpretation Code Description Data Joseline rce(s) Supporting Document(s) Source: Laboratory test result [facility] ([facility]) {SOURCE: Random Void Neisseria gonorrhoeae,Tracee Laboratory test result [facility] ([facility]) {SOURCE: Random Void Chlamydia trachomatis,Tracee Laboratory test result [facility] ([facility]) {SOURCE: Random Void ID Date Data Source [id number] 07/09/2020 06:50:00 AM EST [facility] Name Value Range Interpretation Code Description Data Joseline rce(s) Supporting Document(s) SOURCE: Random Void [facility] Chlamydia trachomatis rRNA [Presence] in Unspecified specimen by Probe and target amplification method Negative Negative [facility] Neisseria gonorrhoeae rRNA [Presence] in Unspecified specimen by Probe and target amplification method Negative Negative [facility] ID Date Data Source [id number] 07/06/2020 11:42:00 AM EST [facility] Name Value Range Interpretation Code Description Data Joseline rce(s) Supporting Document(s) SARS coronavirus 2 RNA [facility] This lab was ordered by [facility] and reported by [facility]. ID Date Data Source [id number] 06/29/2020 10:30:00 AM EST [facility] Name Value Range Interpretation Code Description Data Joseline rce(s) Supporting Document(s) SARS coronavirus 2 RNA [facility] This lab was ordered by [facility] and reported by [facility]. ID Date Data Source [id number] 06/22/2020 12:49:00 PM EST [facility] Name Value Range Interpretation Code Description Data Joseline rce(s) Supporting Document(s) SARS coronavirus 2 RNA [facility] This lab was ordered by [facility] and reported by [facility]. ID Date Data Source [id number] 06/15/2020 07:30:00 AM EDT [facility] Name Value Range Interpretation Code Description Data Joseline rce(s) Supporting Document(s) SARS coronavirus 2 RNA [facility] This lab was ordered by [facility] and reported by [facility]. ID Date Data Source [id number] 06/08/2020 02:25:00 PM EDT [facility] Name Value Range Interpretation Code Description Data Joseline rce(s) Supporting Document(s) SARS coronavirus 2 RNA [facility] This lab was ordered by [facility] and reported by [facility]. ID Date Data Source [id number] 06/03/2020 04:13:00 PM EDT [facility] ([facility]) Name Value Range Interpretation Code Description Data Joseline rce(s) Supporting Document(s) Culture Urine Laboratory test result [facility] ([facility]) {SPECIMEN TYPE: RANDOM~.~.~R31.9 ID Date Data Source [id number] 06/09/2020 09:33:00 AM EDT [facility] Name Value Range Interpretation Code Description Data Joseline rce(s) Supporting Document(s) CULTURE URINE [facility] spital _CULTURE URINE_$$[id number]$$[id number]$$[id number]$$[id number]$$273545$$[id number]$$084839$$611702$$136702$$ 100678$$571572$$902188$$751566$$813486$$189342$$849005$$985670$$609927$$845644$$ 919753$$328898$$593748$$848254$$396149$$538056$$992528$$761990 -- Continued on next page --Patient: INDIO Zamudio Order: [id number] Page 2Culture: CULTURE URINE Status: Final ==== -- Continued on next page --Patient: INDIO Zamudio Order: [id number] Page 2Culture: CULTURE URINE Status: Prelim =====$$[id number]$$[id number] DATE/TIME: 06/09/2020 09:06Culture: CULTURE URINE Status: FinalIsolate 1 Lactobacillus species Flag: . . . . . . .410,000-25,000 colony forming units per mLSusceptibility not normally performed on this organism. Previous result entered on 06/06/2020 06:45 ET Specimen has been received and testing has been initiated.Urine Culture,Comprehensive: [id number] Test performed by: [facility] #: [id number] [address] [place] [address] [id number] [facility] [address]Medical Director : Stewart Ruiz MD NPI #:Radio Personality : 06/07/20.0623.XMT.SENT REF 06/09/20.0933.XMT.SENT REF ID Date Data Source [id number] 06/01/2020 10:35:00 AM EDT [facility] Name Value Range Interpretation Code Description Data Joseline rce(s) Supporting Document(s) SARS coronavirus 2 RNA [facility] This lab was ordered by [facility] and reported by [facility]. ID Date Data Source [id number] 05/25/2020 10:00:00 AM EDT [facility] Name Value Range Interpretation Code Description Data Joseline rce(s) Supporting Document(s) SARS coronavirus 2 RNA [facility] This lab was ordered by [facility] and reported by [facility]. ID Date Data Source [id number] 05/18/2020 09:00:00 AM EDT [facility] Name Value Range Interpretation Code Description Data Joseline rce(s) Supporting Document(s) SARS coronavirus 2 RNA [facility] This lab was ordered by [facility] and reported by [facility]. ID Date Data Source [id number] 05/11/2020 12:43:00 PM EDT [facility] Name Value Range Interpretation Code Description Data Joseline rce(s) Supporting Document(s) SARS coronavirus 2 RNA [facility] This lab was ordered by [facility] and reported by [facility]. ID Date Data Source [id number] 04/19/2020 07:06:00 AM EDT [facility] Name Value Range Interpretation Code Description Data Joseline rce(s) Supporting Document(s) SARS coronavirus 2 RNA [facility] This lab was ordered by [facility] and reported by [facility]. ID Date Data Source [id number] 04/13/2020 11:09:00 AM EDT [facility] Name Value Range Interpretation Code Description Data Joseline rce(s) Supporting Document(s) SARS coronavirus 2 RNA [facility] This lab was ordered by [facility] and reported by [facility]. ID Date Data Source [id number] 04/01/2020 02:11:00 PM EDT [facility] ([facility]) Name Value Range Interpretation Code Description Data Joseline rce(s) Supporting Document(s) Inhouse [facility] Laboratory test result [facility] ([facility]) ID Date Data Source [id number] 03/18/2020 03:35:00 PM EDT [facility] [address] [place] [address] PHONE: [phone] FAX: [phone] Name .................. : INDIO Zamudio Acct Number.................. : [id number] ROOM. ................. : MR Number ................... : [id number] Stay type ............. : O/P Discharge Date......... ... : 03/17/20 Admit Date ......... : 03/17/20 Admit Phys .................... : SAUCEDA TIN Date of ....... : 1990 Family Phys ................... : NO PCP Phone .................. : [phone] Age ................................ : 29 Film# .................. .:[id number] Sex ................................. : F Unsigned transcriptions are preliminary reports and do not represent a medical or legal document PELVIC [id number] COMPLETE:03/17/20 18:56 ADB [id number] (REASON FOR PELVIS: PAIN TRANSABDOMINAL PELVIC ULTRASOUND: [...] By Emmanuel Sears M.D. , 03/18/20 15:35, MSY Transcribe Initials: THOMAS , Transcribe Date: 03/17/20 23:12, Dictation Date: Copy for: 710 MED REC Page 1 of 1 Name Value Range Interpretation Code Description Data Joseline rce(s) Supporting Document(s) ID Date Data Source [id number] 03/12/2020 03:21:00 PM EDT [facility] ([facility]) Name Value Range Interpretation Code Description Data Joseline rce(s) Supporting Document(s) HCG Serum QL [facility] Laboratory test result [facility] ([facility]) { KIT LOT # [id number] ) { KIT EXP DATE 06.01.21 ) { PROCEDURAL CONTROL VALID ) HCG Serum Qual Laboratory test result [facility] ([facility]) ID Date Data Source [id number] 03/12/2020 03:50:00 PM EDT [facility] Name Value Range Interpretation Code Description Data Joseline rce(s) Supporting Document(s) HCG SERUM QUAL NEGATIVE NORMAL: NEGATIVE [facility] HCG SERUM QL REENTER NEGATIVE NORMAL: NEGATIVE [facility] { KIT LOT # [id number] ){ KIT EXP DATE 06.01.21 ){ PROCEDURAL CONTROL VALID ) ID Date Data Source [id number] 03/11/2020 04:41:00 PM EDT [facility] ([facility]) Name Value Range Interpretation Code Description Data Joseline rce(s) Supporting Document(s) Inhouse [place] Laboratory test result [facility] ([facility]) ID Date Data Source [id number] 03/11/2020 04:01:00 PM EDT [facility] ([facility]) Name Value Range Interpretation Code Description Data Joseline rce(s) Supporting Document(s) US Pelvic Laboratory test result [facility] ([facility]) ID Date Data Source [id number] 03/09/2020 03:32:00 PM EDT [facility] Name Value Range Interpretation Code Description Data Joseline rce(s) Supporting Document(s) SARS coronavirus 2 RNA [facility] This lab was ordered by [facility] and reported by [facility]. ID Date Data Source [id number] 03/02/2020 11:20:00 AM EDT [facility] Name Value Range Interpretation Code Description Data Joseline rce(s) Supporting Document(s) SARS coronavirus 2 RNA [facility] This lab was ordered by [facility] and reported by [facility]. ID Date Data Source [id number] 02/24/2020 01:16:00 PM EDT [facility] Name Value Range Interpretation Code Description Data Joseline rce(s) Supporting Document(s) SARS coronavirus 2 RNA [facility] This lab was ordered by [facility] and reported by [facility]. ID Date Data Source [id number] 02/10/2020 11:49:00 AM EDT [facility] Name Value Range Interpretation Code Description Data Joseline rce(s) Supporting Document(s) SARS CORONAVIRUS 2 RNA [facility] This lab was ordered by [facility] and reported by [facility]. ID Date Data Source [id number] 02/06/2020 12:00:00 AM EDT [facility] Name Value Range Interpretation Code Description Data Joseline rce(s) Supporting Document(s) SARS CORONAVIRUS 2 RNA [facility] This lab was ordered by [facility] and reported by [facility]. ID Date Data Source [id number] 02/03/2020 01:42:00 PM EDT [facility] Name Value Range Interpretation Code Description Data Joseline rce(s) Supporting Document(s) SARS CORONAVIRUS 2 RNA [facility] This lab was ordered by [facility] and reported by [facility]. ID Date Data Source [id number] 01/27/2020 03:27:00 PM EDT [facility] Name Value Range Interpretation Code Description Data Joseline rce(s) Supporting Document(s) SARS CORONAVIRUS 2 RNA [facility] This lab was ordered by [facility] and reported by [facility]. ID Date Data Source [id number] 01/23/2020 10:00:00 AM EDT [facility] Name Value Range Interpretation Code Description Data Joseline rce(s) Supporting Document(s) SARS CORONAVIRUS 2 RNA [facility] This lab was ordered by [facility] and reported by [facility]. ID Date Data Source [id number] 01/20/2020 05:30:00 AM EDT [facility] Name Value Range Interpretation Code Description Data Joseline rce(s) Supporting Document(s) SARS CORONAVIRUS 2 RNA [facility] This lab was ordered by [facility] and reported by [facility]. ID Date Data Source [id number] 01/16/2020 12:12:00 PM EDT [facility] Name Value Range Interpretation Code Description Data Joseline rce(s) Supporting Document(s) SARS CORONAVIRUS 2 RNA [facility] This lab was ordered by [facility] and reported by [facility]. ID Date Data Source [id number] 01/14/2020 06:00:00 AM EDT [facility] Name Value Range Interpretation Code Description Data Joseline rce(s) Supporting Document(s) SARS CORONAVIRUS 2 RNA [facility] This lab was ordered by [facility] and reported by [facility]. ID Date Data Source [id number] 01/08/2020 10:47:00 AM EDT [facility] Name Value Range Interpretation Code Description Data Joseline rce(s) Supporting Document(s) SARS CORONAVIRUS 2 RNA [facility] This lab was ordered by [facility] and reported by [facility]. ID Date Data Source [id number] 01/05/2020 05:30:00 AM EDT [facility] Name Value Range Interpretation Code Description Data Joseline rce(s) Supporting Document(s) SARS CORONAVIRUS 2 RNA [facility] This lab was ordered by [facility] and reported by [facility]. ID Date Data Source [id number] 12/29/2019 10:30:00 AM EDT [facility] ([facility]) Name Value Range Interpretation Code Description Data Joseline rce(s) Supporting Document(s) Progesterone [Mass/volume] in Serum or Plasma 0.1 ng/mL [facility] ([facility]) .~.~<DG1.3.1>N97.9</DG1.3.1><DG1.3.1>N97.9</DG1.3.1><DG1.3.1>N97.9</DG1.3.1><DG1 .3.1 Is patient fasting? N~.~.~<DG1.3.1>N97.9</DG1.3.1><DG1.3.1>N97.9</DG1.3.1><DG1.3.1>N97.9</DG1.3. .~.~<DG1.3.1> N97.9</DG1.3.1><DG1.3.1>N97.9</DG1.3.1><DG1.3.1>N97.9</DG1.3.1><DG1.3.1 .~.~<DG1.3.1>N97.9</DG1.3.1><DG1.3.1>N97.9</DG1.3.1><DG1.3.1>N97.9</DG1.3.1><DG1 .3.1 .~.~<DG1.3.1>N97.9</DG1.3.1><DG1.3.1> N97.9</DG1.3.1><DG1.3.1>N97.9</DG1.3.1><DG1.3.1 .~.~<DG1.3.1>N97.9</DG1.3.1><DG1.3.1>N97.9</DG1.3.1><DG1.3.1>N97.9</DG1.3.1><DG1 .3.1 .~.~<DG1.3.1>N97.9</DG1.3.1><DG1.3.1>N97.9</DG1.3.1><DG1.3.1> N97.9</DG1.3.1><DG1.3.1 .~.~<DG1.3.1>N97.9</DG1.3.1><DG1.3.1>N97.9</DG1.3.1><DG1.3.1>N97.9</DG1.3.1><DG1 .3.1 .~.~<DG1.3.1>N97.9</DG1.3.1><DG1.3.1>N97.9</DG1.3.1><DG1.3.1>N97.9</DG1.3.1> <DG1.3.1 .~.~<DG1.3.1>N97.9</DG1.3.1><DG1.3.1>N97.9</DG1.3.1><DG1.3.1>N97.9</DG1.3.1><DG1 .3.1 .~.~<DG1.3.1>N97.9</DG1.3.1><DG1.3.1>N97.9</DG1.3.1><DG1.3.1>N97.9</DG1.3.1><DG1 .3.1 ID Date Data Source [id number] 12/29/2019 10:30:00 AM EDT [facility] ([facility]) Name Value Range Interpretation Code Description Data Joseline rce(s) Supporting Document(s) Insulin Free \\T\\ Tot Laboratory test result [facility] ([facility]) .~.~<DG1.3.1>N97.9</DG1.3.1><DG1.3.1>N97.9</DG1.3.1><DG1.3.1>N97.9</DG1.3.1><DG1 .3.1 Is patient fasting? N~.~.~<DG1.3.1>N97.9</DG1.3.1><DG1.3.1>N97.9</DG1.3.1><DG1.3.1>N97.9</DG1.3. .~.~<DG1.3.1> N97.9</DG1.3.1><DG1.3.1>N97.9</DG1.3.1><DG1.3.1>N97.9</DG1.3.1><DG1.3.1 .~.~<DG1.3.1>N97.9</DG1.3.1><DG1.3.1>N97.9</DG1.3.1><DG1.3.1>N97.9</DG1.3.1><DG1 .3.1 .~.~<DG1.3.1>N97.9</DG1.3.1><DG1.3.1> N97.9</DG1.3.1><DG1.3.1>N97.9</DG1.3.1><DG1.3.1 .~.~<DG1.3.1>N97.9</DG1.3.1><DG1.3.1>N97.9</DG1.3.1><DG1.3.1>N97.9</DG1.3.1><DG1 .3.1 .~.~<DG1.3.1>N97.9</DG1.3.1><DG1.3.1>N97.9</DG1.3.1><DG1.3.1> N97.9</DG1.3.1><DG1.3.1 .~.~<DG1.3.1>N97.9</DG1.3.1><DG1.3.1>N97.9</DG1.3.1><DG1.3.1>N97.9</DG1.3.1><DG1 .3.1 .~.~<DG1.3.1>N97.9</DG1.3.1><DG1.3.1>N97.9</DG1.3.1><DG1.3.1>N97.9</DG1.3.1> <DG1.3.1 .~.~<DG1.3.1>N97.9</DG1.3.1><DG1.3.1>N97.9</DG1.3.1><DG1.3.1>N97.9</DG1.3.1><DG1 .3.1 .~.~<DG1.3.1>N97.9</DG1.3.1><DG1.3.1>N97.9</DG1.3.1><DG1.3.1>N97.9</DG1.3.1><DG1 .3.1 Free Insulin 7.7 uU/mL [facility] ([facility]) .~.~<DG1.3.1>N97.9</DG1.3.1><DG1.3.1>N97.9</DG1.3.1><DG1.3.1>N97.9</DG1.3.1><DG1 .3.1 Is patient fasting? N~.~.~<DG1.3.1>N97.9</DG1.3.1><DG1.3.1>N97.9</DG1.3.1><DG1.3.1>N97.9</DG1.3. .~.~<DG1.3.1> N97.9</DG1.3.1><DG1.3.1>N97.9</DG1.3.1><DG1.3.1>N97.9</DG1.3.1><DG1.3.1 .~.~<DG1.3.1>N97.9</DG1.3.1><DG1.3.1>N97.9</DG1.3.1><DG1.3.1>N97.9</DG1.3.1><DG1 .3.1 .~.~<DG1.3.1>N97.9</DG1.3.1><DG1.3.1> N97.9</DG1.3.1><DG1.3.1>N97.9</DG1.3.1><DG1.3.1 .~.~<DG1.3.1>N97.9</DG1.3.1><DG1.3.1>N97.9</DG1.3.1><DG1.3.1>N97.9</DG1.3.1><DG1 .3.1 .~.~<DG1.3.1>N97.9</DG1.3.1><DG1.3.1>N97.9</DG1.3.1><DG1.3.1> N97.9</DG1.3.1><DG1.3.1 .~.~<DG1.3.1>N97.9</DG1.3.1><DG1.3.1>N97.9</DG1.3.1><DG1.3.1>N97.9</DG1.3.1><DG1 .3.1 .~.~<DG1.3.1>N97.9</DG1.3.1><DG1.3.1>N97.9</DG1.3.1><DG1.3.1>N97.9</DG1.3.1> <DG1.3.1 .~.~<DG1.3.1>N97.9</DG1.3.1><DG1.3.1>N97.9</DG1.3.1><DG1.3.1>N97.9</DG1.3.1><DG1 .3.1 .~.~<DG1.3.1>N97.9</DG1.3.1><DG1.3.1>N97.9</DG1.3.1><DG1.3.1>N97.9</DG1.3.1><DG1 .3.1 Total Insulin 7.7 uU/mL [facility] ([facility]) .~.~<DG1.3.1>N97.9</DG1.3.1><DG1.3.1>N97.9</DG1.3.1><DG1.3.1>N97.9</DG1.3.1><DG1 .3.1 Is patient fasting? N~.~.~<DG1.3.1>N97.9</DG1.3.1><DG1.3.1>N97.9</DG1.3.1><DG1.3.1>N97.9</DG1.3. .~.~<DG1.3.1> N97.9</DG1.3.1><DG1.3.1>N97.9</DG1.3.1><DG1.3.1>N97.9</DG1.3.1><DG1.3.1 .~.~<DG1.3.1>N97.9</DG1.3.1><DG1.3.1>N97.9</DG1.3.1><DG1.3.1>N97.9</DG1.3.1><DG1 .3.1 .~.~<DG1.3.1>N97.9</DG1.3.1><DG1.3.1> N97.9</DG1.3.1><DG1.3.1>N97.9</DG1.3.1><DG1.3.1 .~.~<DG1.3.1>N97.9</DG1.3.1><DG1.3.1>N97.9</DG1.3.1><DG1.3.1>N97.9</DG1.3.1><DG1 .3.1 .~.~<DG1.3.1>N97.9</DG1.3.1><DG1.3.1>N97.9</DG1.3.1><DG1.3.1> N97.9</DG1.3.1><DG1.3.1 .~.~<DG1.3.1>N97.9</DG1.3.1><DG1.3.1>N97.9</DG1.3.1><DG1.3.1>N97.9</DG1.3.1><DG1 .3.1 .~.~<DG1.3.1>N97.9</DG1.3.1><DG1.3.1>N97.9</DG1.3.1><DG1.3.1>N97.9</DG1.3.1> <DG1.3.1 .~.~<DG1.3.1>N97.9</DG1.3.1><DG1.3.1>N97.9</DG1.3.1><DG1.3.1>N97.9</DG1.3.1><DG1 .3.1 .~.~<DG1.3.1>N97.9</DG1.3.1><DG1.3.1>N97.9</DG1.3.1><DG1.3.1>N97.9</DG1.3.1><DG1 .3.1 ID Date Data Source [id number] 12/29/2019 10:30:00 AM EDT [facility] ([facility]) Name Value Range Interpretation Code Description Data Joseline rce(s) Supporting Document(s) HCG Serum Qual Laboratory test result [facility] ([facility]) .~.~<DG1.3.1>N97.9</DG1.3.1><DG1.3.1>N97.9</DG1.3.1><DG1.3.1>N97.9</DG1.3.1><DG1 .3.1 Is patient fasting? N~.~.~<DG1.3.1>N97.9</DG1.3.1><DG1.3.1>N97.9</DG1.3.1><DG1.3.1>N97.9</DG1.3. .~.~<DG1.3.1> N97.9</DG1.3.1><DG1.3.1>N97.9</DG1.3.1><DG1.3.1>N97.9</DG1.3.1><DG1.3.1 .~.~<DG1.3.1>N97.9</DG1.3.1><DG1.3.1>N97.9</DG1.3.1><DG1.3.1>N97.9</DG1.3.1><DG1 .3.1 .~.~<DG1.3.1>N97.9</DG1.3.1><DG1.3.1> N97.9</DG1.3.1><DG1.3.1>N97.9</DG1.3.1><DG1.3.1 .~.~<DG1.3.1>N97.9</DG1.3.1><DG1.3.1>N97.9</DG1.3.1><DG1.3.1>N97.9</DG1.3.1><DG1 .3.1 .~.~<DG1.3.1>N97.9</DG1.3.1><DG1.3.1>N97.9</DG1.3.1><DG1.3.1> N97.9</DG1.3.1><DG1.3.1 .~.~<DG1.3.1>N97.9</DG1.3.1><DG1.3.1>N97.9</DG1.3.1><DG1.3.1>N97.9</DG1.3.1><DG1 .3.1 .~.~<DG1.3.1>N97.9</DG1.3.1><DG1.3.1>N97.9</DG1.3.1><DG1.3.1>N97.9</DG1.3.1> <DG1.3.1 .~.~<DG1.3.1>N97.9</DG1.3.1><DG1.3.1>N97.9</DG1.3.1><DG1.3.1>N97.9</DG1.3.1><DG1 .3.1 .~.~<DG1.3.1>N97.9</DG1.3.1><DG1.3.1>N97.9</DG1.3.1><DG1.3.1>N97.9</DG1.3.1><DG1 .3.1 HCG Serum QL [facility] Laboratory test result [facility] ([facility]) .~.~<DG1.3.1>N97.9</DG1.3.1><DG1.3.1>N97.9</DG1.3.1><DG1.3.1>N97.9</DG1.3.1><DG1 .3.1 Is patient fasting? N~.~.~<DG1.3.1>N97.9</DG1.3.1><DG1.3.1>N97.9</DG1.3.1><DG1.3.1>N97.9</DG1.3. .~.~<DG1.3.1> N97.9</DG1.3.1><DG1.3.1>N97.9</DG1.3.1><DG1.3.1>N97.9</DG1.3.1><DG1.3.1 .~.~<DG1.3.1>N97.9</DG1.3.1><DG1.3.1>N97.9</DG1.3.1><DG1.3.1>N97.9</DG1.3.1><DG1 .3.1 .~.~<DG1.3.1>N97.9</DG1.3.1><DG1.3.1> N97.9</DG1.3.1><DG1.3.1>N97.9</DG1.3.1><DG1.3.1 .~.~<DG1.3.1>N97.9</DG1.3.1><DG1.3.1>N97.9</DG1.3.1><DG1.3.1>N97.9</DG1.3.1><DG1 .3.1 .~.~<DG1.3.1>N97.9</DG1.3.1><DG1.3.1>N97.9</DG1.3.1><DG1.3.1> N97.9</DG1.3.1><DG1.3.1 .~.~<DG1.3.1>N97.9</DG1.3.1><DG1.3.1>N97.9</DG1.3.1><DG1.3.1>N97.9</DG1.3.1><DG1 .3.1 .~.~<DG1.3.1>N97.9</DG1.3.1><DG1.3.1>N97.9</DG1.3.1><DG1.3.1>N97.9</DG1.3.1> <DG1.3.1 .~.~<DG1.3.1>N97.9</DG1.3.1><DG1.3.1>N97.9</DG1.3.1><DG1.3.1>N97.9</DG1.3.1><DG1 .3.1 .~.~<DG1.3.1>N97.9</DG1.3.1><DG1.3.1>N97.9</DG1.3.1><DG1.3.1>N97.9</DG1.3.1><DG1 .3.1 ID Date Data Source [id number] 12/29/2019 10:30:00 AM EDT [facility] ([facility]) Name Value Range Interpretation Code Description Data Joseline rce(s) Supporting Document(s) Follitropin [Units/volume] in Serum or Plasma 6.0 mIU/mL [facility] ([facility]) .~.~<DG1.3.1>N97.9</DG1.3.1><DG1.3.1>N97.9</DG1.3.1><DG1.3.1>N97.9</DG1.3.1><DG1 .3.1 Is patient fasting? N~.~.~<DG1.3.1>N97.9</DG1.3.1><DG1.3.1>N97.9</DG1.3.1><DG1.3.1>N97.9</DG1.3. .~.~<DG1.3.1> N97.9</DG1.3.1><DG1.3.1>N97.9</DG1.3.1><DG1.3.1>N97.9</DG1.3.1><DG1.3.1 .~.~<DG1.3.1>N97.9</DG1.3.1><DG1.3.1>N97.9</DG1.3.1><DG1.3.1>N97.9</DG1.3.1><DG1 .3.1 .~.~<DG1.3.1>N97.9</DG1.3.1><DG1.3.1> N97.9</DG1.3.1><DG1.3.1>N97.9</DG1.3.1><DG1.3.1 .~.~<DG1.3.1>N97.9</DG1.3.1><DG1.3.1>N97.9</DG1.3.1><DG1.3.1>N97.9</DG1.3.1><DG1 .3.1 .~.~<DG1.3.1>N97.9</DG1.3.1><DG1.3.1>N97.9</DG1.3.1><DG1.3.1> N97.9</DG1.3.1><DG1.3.1 .~.~<DG1.3.1>N97.9</DG1.3.1><DG1.3.1>N97.9</DG1.3.1><DG1.3.1>N97.9</DG1.3.1><DG1 .3.1 .~.~<DG1.3.1>N97.9</DG1.3.1><DG1.3.1>N97.9</DG1.3.1><DG1.3.1>N97.9</DG1.3.1> <DG1.3.1 .~.~<DG1.3.1>N97.9</DG1.3.1><DG1.3.1>N97.9</DG1.3.1><DG1.3.1>N97.9</DG1.3.1><DG1 .3.1 .~.~<DG1.3.1>N97.9</DG1.3.1><DG1.3.1>N97.9</DG1.3.1><DG1.3.1>N97.9</DG1.3.1><DG1 .3.1 Prolactin [Mass/volume] in Serum or Plasma 24.6 ng/mL 4.8-2 3.3 Above high normal [facility] ([facility]) .~.~<DG1.3.1>N97.9</DG1.3.1><DG1.3.1>N97.9</DG1.3.1><DG1.3.1>N97.9</DG1.3.1><DG1 .3.1 Is patient fasting? N~.~.~<DG1.3.1>N97.9</DG1.3.1><DG1.3.1>N97.9</DG1.3.1><DG1.3.1>N97.9</DG1.3. .~.~<DG1.3.1> N97.9</DG1.3.1><DG1.3.1>N97.9</DG1.3.1><DG1.3.1>N97.9</DG1.3.1><DG1.3.1 .~.~<DG1.3.1>N97.9</DG1.3.1><DG1.3.1>N97.9</DG1.3.1><DG1.3.1>N97.9</DG1.3.1><DG1 .3.1 .~.~<DG1.3.1>N97.9</DG1.3.1><DG1.3.1> N97.9</DG1.3.1><DG1.3.1>N97.9</DG1.3.1><DG1.3.1 .~.~<DG1.3.1>N97.9</DG1.3.1><DG1.3.1>N97.9</DG1.3.1><DG1.3.1>N97.9</DG1.3.1><DG1 .3.1 .~.~<DG1.3.1>N97.9</DG1.3.1><DG1.3.1>N97.9</DG1.3.1><DG1.3.1> N97.9</DG1.3.1><DG1.3.1 .~.~<DG1.3.1>N97.9</DG1.3.1><DG1.3.1>N97.9</DG1.3.1><DG1.3.1>N97.9</DG1.3.1><DG1 .3.1 .~.~<DG1.3.1>N97.9</DG1.3.1><DG1.3.1>N97.9</DG1.3.1><DG1.3.1>N97.9</DG1.3.1> <DG1.3.1 .~.~<DG1.3.1>N97.9</DG1.3.1><DG1.3.1>N97.9</DG1.3.1><DG1.3.1>N97.9</DG1.3.1><DG1 .3.1 .~.~<DG1.3.1>N97.9</DG1.3.1><DG1.3.1>N97.9</DG1.3.1><DG1.3.1>N97.9</DG1.3.1><DG1 .3.1 Thyrotropin [Units/volume] in Serum or Plasma 1.54 uIU/mL 0.47-5.01 [facility] ([facility]) .~.~<DG1.3.1>N97.9</DG1.3.1><DG1.3.1>N97.9</DG1.3.1><DG1.3.1>N97.9</DG1.3.1><DG1 .3.1 Is patient fasting? N~.~.~<DG1.3.1>N97.9</DG1.3.1><DG1.3.1>N97.9</DG1.3.1><DG1.3.1>N97.9</DG1.3. .~.~<DG1.3.1> N97.9</DG1.3.1><DG1.3.1>N97.9</DG1.3.1><DG1.3.1>N97.9</DG1.3.1><DG1.3.1 .~.~<DG1.3.1>N97.9</DG1.3.1><DG1.3.1>N97.9</DG1.3.1><DG1.3.1>N97.9</DG1.3.1><DG1 .3.1 .~.~<DG1.3.1>N97.9</DG1.3.1><DG1.3.1> N97.9</DG1.3.1><DG1.3.1>N97.9</DG1.3.1><DG1.3.1 .~.~<DG1.3.1>N97.9</DG1.3.1><DG1.3.1>N97.9</DG1.3.1><DG1.3.1>N97.9</DG1.3.1><DG1 .3.1 .~.~<DG1.3.1>N97.9</DG1.3.1><DG1.3.1>N97.9</DG1.3.1><DG1.3.1> N97.9</DG1.3.1><DG1.3.1 .~.~<DG1.3.1>N97.9</DG1.3.1><DG1.3.1>N97.9</DG1.3.1><DG1.3.1>N97.9</DG1.3.1><DG1 .3.1 .~.~<DG1.3.1>N97.9</DG1.3.1><DG1.3.1>N97.9</DG1.3.1><DG1.3.1>N97.9</DG1.3.1> <DG1.3.1 .~.~<DG1.3.1>N97.9</DG1.3.1><DG1.3.1>N97.9</DG1.3.1><DG1.3.1>N97.9</DG1.3.1><DG1 .3.1 .~.~<DG1.3.1>N97.9</DG1.3.1><DG1.3.1>N97.9</DG1.3.1><DG1.3.1>N97.9</DG1.3.1><DG1 .3.1 Lutropin [Units/volume] in Serum or Plasma 13.3 mIU/mL [facility] ([facility]) .~.~<DG1.3.1>N97.9</DG1.3.1><DG1.3.1>N97.9</DG1.3.1><DG1.3.1>N97.9</DG1.3.1><DG1 .3.1 Is patient fasting? N~.~.~<DG1.3.1>N97.9</DG1.3.1><DG1.3.1>N97.9</DG1.3.1><DG1.3.1>N97.9</DG1.3. .~.~<DG1.3.1> N97.9</DG1.3.1><DG1.3.1>N97.9</DG1.3.1><DG1.3.1>N97.9</DG1.3.1><DG1.3.1 .~.~<DG1.3.1>N97.9</DG1.3.1><DG1.3.1>N97.9</DG1.3.1><DG1.3.1>N97.9</DG1.3.1><DG1 .3.1 .~.~<DG1.3.1>N97.9</DG1.3.1><DG1.3.1> N97.9</DG1.3.1><DG1.3.1>N97.9</DG1.3.1><DG1.3.1 .~.~<DG1.3.1>N97.9</DG1.3.1><DG1.3.1>N97.9</DG1.3.1><DG1.3.1>N97.9</DG1.3.1><DG1 .3.1 .~.~<DG1.3.1>N97.9</DG1.3.1><DG1.3.1>N97.9</DG1.3.1><DG1.3.1> N97.9</DG1.3.1><DG1.3.1 .~.~<DG1.3.1>N97.9</DG1.3.1><DG1.3.1>N97.9</DG1.3.1><DG1.3.1>N97.9</DG1.3.1><DG1 .3.1 .~.~<DG1.3.1>N97.9</DG1.3.1><DG1.3.1>N97.9</DG1.3.1><DG1.3.1>N97.9</DG1.3.1> <DG1.3.1 .~.~<DG1.3.1>N97.9</DG1.3.1><DG1.3.1>N97.9</DG1.3.1><DG1.3.1>N97.9</DG1.3.1><DG1 .3.1 .~.~<DG1.3.1>N97.9</DG1.3.1><DG1.3.1>N97.9</DG1.3.1><DG1.3.1>N97.9</DG1.3.1><DG1 .3.1 Testosterone Free [Mass/volume] in Serum or Plasma 1.4 pg/mL 0.0-4.2 [facility] ([facility]) .~.~<DG1.3.1>N97.9</DG1.3.1><DG1.3.1>N97.9</DG1.3.1><DG1.3.1>N97.9</DG1.3.1><DG1 .3.1 Is patient fasting? N~.~.~<DG1.3.1>N97.9</DG1.3.1><DG1.3.1>N97.9</DG1.3.1><DG1.3.1>N97.9</DG1.3. .~.~<DG1.3.1> N97.9</DG1.3.1><DG1.3.1>N97.9</DG1.3.1><DG1.3.1>N97.9</DG1.3.1><DG1.3.1 .~.~<DG1.3.1>N97.9</DG1.3.1><DG1.3.1>N97.9</DG1.3.1><DG1.3.1>N97.9</DG1.3.1><DG1 .3.1 .~.~<DG1.3.1>N97.9</DG1.3.1><DG1.3.1> N97.9</DG1.3.1><DG1.3.1>N97.9</DG1.3.1><DG1.3.1 .~.~<DG1.3.1>N97.9</DG1.3.1><DG1.3.1>N97.9</DG1.3.1><DG1.3.1>N97.9</DG1.3.1><DG1 .3.1 .~.~<DG1.3.1>N97.9</DG1.3.1><DG1.3.1>N97.9</DG1.3.1><DG1.3.1> N97.9</DG1.3.1><DG1.3.1 .~.~<DG1.3.1>N97.9</DG1.3.1><DG1.3.1>N97.9</DG1.3.1><DG1.3.1>N97.9</DG1.3.1><DG1 .3.1 .~.~<DG1.3.1>N97.9</DG1.3.1><DG1.3.1>N97.9</DG1.3.1><DG1.3.1>N97.9</DG1.3.1> <DG1.3.1 .~.~<DG1.3.1>N97.9</DG1.3.1><DG1.3.1>N97.9</DG1.3.1><DG1.3.1>N97.9</DG1.3.1><DG1 .3.1 .~.~<DG1.3.1>N97.9</DG1.3.1><DG1.3.1>N97.9</DG1.3.1><DG1.3.1>N97.9</DG1.3.1><DG1 .3.1 Glucose [Mass/volume] in Serum or Plasma 92 mg/dL 65-110 [facility] ([facility]) .~.~<DG1.3.1>N97.9</DG1.3.1><DG1.3.1>N97.9</DG1.3.1><DG1.3.1>N97.9</DG1.3.1><DG1 .3.1 Is patient fasting? N~.~.~<DG1.3.1>N97.9</DG1.3.1><DG1.3.1>N97.9</DG1.3.1><DG1.3.1>N97.9</DG1.3. .~.~<DG1.3.1> N97.9</DG1.3.1><DG1.3.1>N97.9</DG1.3.1><DG1.3.1>N97.9</DG1.3.1><DG1.3.1 .~.~<DG1.3.1>N97.9</DG1.3.1><DG1.3.1>N97.9</DG1.3.1><DG1.3.1>N97.9</DG1.3.1><DG1 .3.1 .~.~<DG1.3.1>N97.9</DG1.3.1><DG1.3.1> N97.9</DG1.3.1><DG1.3.1>N97.9</DG1.3.1><DG1.3.1 .~.~<DG1.3.1>N97.9</DG1.3.1><DG1.3.1>N97.9</DG1.3.1><DG1.3.1>N97.9</DG1.3.1><DG1 .3.1 .~.~<DG1.3.1>N97.9</DG1.3.1><DG1.3.1>N97.9</DG1.3.1><DG1.3.1> N97.9</DG1.3.1><DG1.3.1 .~.~<DG1.3.1>N97.9</DG1.3.1><DG1.3.1>N97.9</DG1.3.1><DG1.3.1>N97.9</DG1.3.1><DG1 .3.1 .~.~<DG1.3.1>N97.9</DG1.3.1><DG1.3.1>N97.9</DG1.3.1><DG1.3.1>N97.9</DG1.3.1> <DG1.3.1 .~.~<DG1.3.1>N97.9</DG1.3.1><DG1.3.1>N97.9</DG1.3.1><DG1.3.1>N97.9</DG1.3.1><DG1 .3.1 .~.~<DG1.3.1>N97.9</DG1.3.1><DG1.3.1>N97.9</DG1.3.1><DG1.3.1>N97.9</DG1.3.1><DG1 .3.1 17-Hydroxyprogesterone [Mass/volume] in Serum or Plasma 62 ng/dL [facility]) .~.~<DG1.3.1>N97.9</DG1.3.1><DG1.3.1>N97.9</DG1.3.1><DG1.3.1>N97.9</DG1.3.1><DG1 .3.1 Is patient fasting? N~.~.~<DG1.3.1>N97.9</DG1.3.1><DG1.3.1>N97.9</DG1.3.1><DG1.3.1>N97.9</DG1.3. .~.~<DG1.3.1> N97.9</DG1.3.1><DG1.3.1>N97.9</DG1.3.1><DG1.3.1>N97.9</DG1.3.1><DG1.3.1 .~.~<DG1.3.1>N97.9</DG1.3.1><DG1.3.1>N97.9</DG1.3.1><DG1.3.1>N97.9</DG1.3.1><DG1 .3.1 .~.~<DG1.3.1>N97.9</DG1.3.1><DG1.3.1> N97.9</DG1.3.1><DG1.3.1>N97.9</DG1.3.1><DG1.3.1 .~.~<DG1.3.1>N97.9</DG1.3.1><DG1.3.1>N97.9</DG1.3.1><DG1.3.1>N97.9</DG1.3.1><DG1 .3.1 .~.~<DG1.3.1>N97.9</DG1.3.1><DG1.3.1>N97.9</DG1.3.1><DG1.3.1> N97.9</DG1.3.1><DG1.3.1 .~.~<DG1.3.1>N97.9</DG1.3.1><DG1.3.1>N97.9</DG1.3.1><DG1.3.1>N97.9</DG1.3.1><DG1 .3.1 .~.~<DG1.3.1>N97.9</DG1.3.1><DG1.3.1>N97.9</DG1.3.1><DG1.3.1>N97.9</DG1.3.1> <DG1.3.1 .~.~<DG1.3.1>N97.9</DG1.3.1><DG1.3.1>N97.9</DG1.3.1><DG1.3.1>N97.9</DG1.3.1><DG1 .3.1 .~.~<DG1.3.1>N97.9</DG1.3.1><DG1.3.1>N97.9</DG1.3.1><DG1.3.1>N97.9</DG1.3.1><DG1 .3.1 Dehydroepiandrosterone sulfate (DHEA-S) [Mass/volume] in Serum or Plasma 107.0 ug/dL 84.8-378.0 [facility] ([facility]) .~.~<DG1.3.1>N97.9</DG1.3.1><DG1.3.1>N97.9</DG1.3.1><DG1.3.1>N97.9</DG1.3.1><DG1 .3.1 Is patient fasting? N~.~.~<DG1.3.1>N97.9</DG1.3.1><DG1.3.1>N97.9</DG1.3.1><DG1.3.1>N97.9</DG1.3. .~.~<DG1.3.1> N97.9</DG1.3.1><DG1.3.1>N97.9</DG1.3.1><DG1.3.1>N97.9</DG1.3.1><DG1.3.1 .~.~<DG1.3.1>N97.9</DG1.3.1><DG1.3.1>N97.9</DG1.3.1><DG1.3.1>N97.9</DG1.3.1><DG1 .3.1 .~.~<DG1.3.1>N97.9</DG1.3.1><DG1.3.1> N97.9</DG1.3.1><DG1.3.1>N97.9</DG1.3.1><DG1.3.1 .~.~<DG1.3.1>N97.9</DG1.3.1><DG1.3.1>N97.9</DG1.3.1><DG1.3.1>N97.9</DG1.3.1><DG1 .3.1 .~.~<DG1.3.1>N97.9</DG1.3.1><DG1.3.1>N97.9</DG1.3.1><DG1.3.1> N97.9</DG1.3.1><DG1.3.1 .~.~<DG1.3.1>N97.9</DG1.3.1><DG1.3.1>N97.9</DG1.3.1><DG1.3.1>N97.9</DG1.3.1><DG1 .3.1 .~.~<DG1.3.1>N97.9</DG1.3.1><DG1.3.1>N97.9</DG1.3.1><DG1.3.1>N97.9</DG1.3.1> <DG1.3.1 .~.~<DG1.3.1>N97.9</DG1.3.1><DG1.3.1>N97.9</DG1.3.1><DG1.3.1>N97.9</DG1.3.1><DG1 .3.1 .~.~<DG1.3.1>N97.9</DG1.3.1><DG1.3.1>N97.9</DG1.3.1><DG1.3.1>N97.9</DG1.3.1><DG1 .3.1 ID Date Data Source [id number] 01/03/2020 06:14:00 AM EDT [facility] Name Value Range Interpretation Code Description Data Joseline rce(s) Supporting Document(s) INSULIN FREE & TOTAL [facility] Test(s) 059498-86-HC Progesterone LCMSwa s developed and its performance characteristics determinedby [employer]. It has not been cleared or approved by the Foodand Drug Administration. Insulin Free [Units/volume] in Serum or Plasma 7.7 uU/mL [facility] Reference Range:Pubertal Children andAdu lts (fasting): 0 - 17 Insulin [Units/volume] in Serum or Plasma 7.7 uU/mL [facility] Non-Diabetic: In the absence of insulin -binding [...] was developed and its performance characteristicsdetermined by [employer]. It has not been cleared or approvedby the Food and Drug Administration. ID Date Data Source [id number] 01/02/2020 06:53:00 AM EDT [facility] Name Value Range Interpretation Code Description Data Joseline rce(s) Supporting Document(s) Progesterone [Mass/volume] in Serum or Plasma 0.1 ng/mL [facility] Foll icular phase 0.1 - 0.9 Luteal phase 1.8 - 23.9 Ovulation phase 0.1 - 12.0 First trimester 11.0 - 44.3 Second trimester 25.4 - 83.3 Third trimester 58.7 - 214.0 Postmenopausal 0.0 - 0.1 ID Date Data Source [id number] 01/02/2020 06:53:00 AM EDT [facility] Name Value Range Interpretation Code Description Data Joseline rce(s) Supporting Document(s) Testosterone Free [Mass/volume] in Serum or Plasma 1.4 pg/mL 0.0-4.2 [facility] ID Date Data Source [id number] 01/02/2020 06:53:00 AM EDT [facility] Name Value Range Interpretation Code Description Data Joseline rce(s) Supporting Document(s) 17-Hydroxyprogesterone [Mass/volume] in Serum or Plasma 62 ng/dL [facility] Adult Female Follicular 15 - 70 Luteal 35 - 290 ID Date Data Source [id number] 01/02/2020 06:53:00 AM EDT [facility] Value Range Interpretation Code Description Data Joseline rce(s) Supporting Document(s) Prolactin [Mass/volume] in Serum or Plasma 24.6 ng/mL 4.8-23.3 H [facility] ID Date Data Source [id number] 01/02/2020 06:53:00 AM EDT [facility] Name Value Range Interpretation Code Description Data Joseline rce(s) Supporting Document(s) Follitropin [Units/volume] in Serum or Plasma 6.0 mIU/mL [facility] Adult Female: Follicular phase 3.5 - 12.5 Ovulation phase 4.7 - 21.5 Luteal phase 1.7 - 7.7 Postmenopausal 25.8 - 134.8 ID Date Data Source [id number] 01/02/2020 06:52:00 AM EDT [facility] Name Value Range Interpretation Code Description Data Joseline rce(s) Supporting Document(s) Lutropin [Units/volume] in Serum or Plasma 13.3 mIU/mL [facility] Adult Female: Follicular phase 2.4 - 12.6 Ovulation phase 14.0 - 95.6 Luteal phase 1.0 - 11.4 Postmenopausal 7.7 - 58.5 ID Date Data Source [id number] 01/02/2020 06:52:00 AM EDT [facility] Name Value Range Interpretation Code Description Data Joseline rce(s) Supporting Document(s) Dehydroepiandrosterone sulfate (DHEA-S) [Mass/volume] in Serum or Plasma 107.0 ug/dL 84.8-378.0 [facility] ID Date Data Source [id number] 12/29/2019 11:33:00 AM EDT [facility] Value Range Interpretation Code Description Data Joseline rce(s) Supporting Document(s) Thyrotropin [Units/volume] in Serum or Plasma by Detec tion limit <= 0.05 mIU/L 1.54 uIU/mL 0.47 - 5.01 [facility] ID Date Data Source [id number] 12/29/2019 11:27:00 AM EDT [facility] Value Range Interpretation Code Description Data Joseline rce(s) Supporting Document(s) Glucose [Mass/volume] in Serum or Plasma 92 MG/DL 65 - 110 [facility] ID Date Data Source [id number] 12/29/2019 11:16:00 AM EDT [facility] Name Value Range Interpretation Code Description Data Joseline rce(s) Supporting Document(s) HCG SERUM QUAL NEGATIVE NORMAL: NEGATIVE [facility] HCG SERUM QL REENTER NEGATIVE NORMAL: NEGATIVE [facility] { KIT LOT # [id number] ){ KIT EXP DATE 06/01/21 ){ PROCEDURAL CONTROL VALID ) ID Date Data Source [id number] 12/29/2019 10:13:00 AM EDT [facility] ([facility]) Name Value Range Interpretation Code Description Data Joseline rce(s) Supporting Document(s) Chlamydia sp DNA [Presence] in Urine by Probe and targ et amplification method Laboratory test result [facility] ([facility]) ID Date Data Source [id number] 12/29/2019 10:12:00 AM EDT [facility] ([facility]) Name Value Range Interpretation Code Description Data Joseline rce(s) Supporting Document(s) Inhouse Wet Mount Laboratory test result [facility] ([facility]) ID Date Data Source [id number] 12/29/2019 10:09:00 AM EDT [facility] ([facility]) Name Value Range Interpretation Code Description Data Joseline rce(s) Supporting Document(s) Source: Laboratory test result [facility] ([facility]) {SPECIMEN TYPE: RANDOM Chlamydia trachomatis,Tracee Laboratory test result [facility] ([facility]) {SPECIMEN TYPE: RANDOM Neisseria gonorrhoeae,Tracee Laboratory test result [facility] ([facility]) {SPECIMEN TYPE: RANDOM ID Date Data Source [id number] 12/29/2019 10:09:00 AM EDT [facility] ([facility]) Name Value Range Interpretation Code Description Data Joseline rce(s) Supporting Document(s) Bacteria identified in Urine by Culture Laboratory test result [facility] ([facility]) Culture Urine Laboratory test result [facility] ([facility]) {SPECIMEN TYPE: RANDOM ID Date Data Source [id number] 12/31/2019 06:35:00 AM EDT [facility] Name Value Range Interpretation Code Description Data Joseline rce(s) Supporting Document(s) SOURCE: Random Void [facility] Chlamydia trachomatis rRNA [Presence] in Unspecified specimen by Probe and target amplification method Negative Negative [facility] Neisseria gonorrhoeae rRNA [Presence] in Unspecified specimen by Probe and target amplification method Negative Negative [facility] ID Date Data Source [id number] 12/31/2019 06:35:00 AM EDT [facility] Name Value Range Interpretation Code Description Data Joseline rce(s) Supporting Document(s) CULTURE URINE [facility] spital _CULTURE URINE_$$[id number]$$[id number]$$[id number]$$[id number]$$[id number]$$[id number]$$[id number]$$[id number]$$[id number]$$ [id number]$$[id number]$$[id number]$$[id number]$$[id number]$$[id number]$$[id number]$$[id number]$$137637$$[id number]$$ [id number]$$[id number]$$[id number]$$[id number]$$130939$$[id number]$$[id number]$$[id number] -- Continued on next page --Patient: INDIO Zamudio Order: [id number] Page 2Culture: CULTURE URINE Status: Final ====$$[id number]$$[id number] DATE/TIME: 12/31/2019 03:05Culture: CULTURE URINE Status: FinalIsolate [...] group B Flag: AP1 Test performed by: [employer] CLIA #: [id number] [address] [place] [address] [id number] [facility] [id number] Director : Stewart Ruiz MD NPI #:Radio Personality : [email or web address] REF ID Date Data Source [id number] 12/29/2019 10:09:00 AM EDT [facility] ([facility]) Name Value Range Interpretation Code Description Data Joseline rce(s) Supporting Document(s) Urine Chlamydia & GC Laboratory test result [facility] ([facility]) ID Date Data Source CHGCTV - CHLAMYDIA, GC & TRICH AMP (Microbiology) 10/13/2019 12:00:00 AM EST [facility] Name Value Range Interpretation Code Description Data Joseline rce(s) Supporting Document(s) NOT DETECTED NEGATIVE Trichomonas vaginalis ( AMP) [facility]CW[facility]) ID Date Data Source [id number] 07/28/2019 02:05:00 PM EST [facility] ([facility]) Name Value Range Interpretation Code Description Data Joseline rce(s) Supporting Document(s) Inhouse Urine Test Laboratory test result [facility] ([facility]) Procedure Social History Code Duration Value Status Description Data Source(s ) Smoking 09/02/2020 12:00:00 AM EST Never Smoker completed Never S moker [facility] ([facility]) Smoking 12/25/2019 12:00:00 AM EDT Patient has never smoked co mpleted Patient has never smoked [facility] ([facility], ) Vital Signs ID Date Data Source UNK Name Value Range Interpretation Code Description Data Source(s) Body surface area Derived from formula 1.85 m2 1.85 m2 [facility] ([facility]) Body mass index (BMI) [Ratio] 33.8 kg/m2 33.8 k g/m2 [facility] ([facility]) Body height 62 [in_i] 62 [in_i] [facility] ([facility]) 5'2" Body weight 83.916 kg 83.916 kg [facility] ([facility]) Body weight 185.00 [lb_av] 185.00 [lb_av] [facility] T ([facility]) Body temperature 96.9 [degF] 96.9 [degF] [facility] ([facility]) Heart rate 73 /min 73 /min [facility] ([facility]) Diastolic blood pressure 82 mm[Hg] 82 mm[Hg] [facility] ([facility]) Systolic blood pressure 114 mm[Hg] 114 mm[Hg] [facility] Body surface area Derived from formula 1.82 m2 1.82 m2 [facility] ([facility]) Body mass index (BMI) [Ratio] 32.7 kg/m2 32.7 k g/m2 [facility] ([facility]) Body height 62 [in_i] 62 [in_i] [facility] ([facility]) 5'2" Body weight 81.194 kg 81.194 kg [facility] ([facility]) Body weight 179.00 [lb_av] 179.00 [lb_av] [facility] T ([facility]) Body temperature 96.2 [degF] 96.2 [degF] [facility] ([facility]) Heart rate 80 /min 80 /min [facility] ([facility]) Diastolic blood pressure 82 mm[Hg] 82 mm[Hg] [facility] ([facility]) Systolic blood pressure 122 mm[Hg] 122 mm[Hg] M EDENT ([facility]) Body surface area Derived from formula 1.81 m2 1.81 m2 [facility] ([facility]) Body mass index (BMI) [Ratio] 32.4 kg/m2 32.4 k g/m2 [facility] ([facility]) Body height 62 [in_i] 62 [in_i] [facility] ([facility]) 5'2" Body weight 80.287 kg 80.287 kg [facility] ([facility]) Body weight 177.00 [lb_av] 177.00 [lb_av] [facility] T ([facility]) Body temperature 97.7 [degF] 97.7 [degF] [facility] ([facility]) Heart rate 72 /min 72 /min [facility] ([facility]) Diastolic blood pressure 66 mm[Hg] 66 mm[Hg] [facility] ([facility]) Systolic blood pressure 116 mm[Hg] 116 mm[Hg] M EDENT ([facility]) Body surface area Derived from formula 1.81 m2 1.81 m2 [facility] ([facility]) Body mass index (BMI) [Ratio] 32.0 kg/m2 32.0 k g/m2 [facility] ([facility]) Body height 62 [in_i] 62 [in_i] [facility] ([facility]) 5'2" Body weight 79.380 kg 79.380 kg [facility] ([facility]) Body weight 175.00 [lb_av] 175.00 [lb_av] MED[facility] T ([facility]) Body temperature 97.9 [degF] 97.9 [degF] [facility] ([facility]) Heart rate 66 /min 66 /min [facility] ([facility]) Diastolic blood pressure 73 mm[Hg] 73 mm[Hg] [facility] ([facility]) Systolic blood pressure 119 mm[Hg] 119 mm[Hg] M EDENT ([facility]) Body surface area 1.81 m2 1.81 m2 [facility] ([facility]) Body surface area 1.82 m2 1.82 m2 [facility] Body mass index (BMI) [Ratio] 32.6 kg/m2 32.6 k g/m2 [facility] Body height 62 [in_i] 62 [in_i] [facility] ([facility]) 5'2" Body weight 80.741 kg 80.741 kg [facility] ([facility]) Body weight 178.00 [lb_av] 178.00 [lb_av] [facility] T ([facility]) Body temperature 98.3 [degF] 98.3 [degF] [facility] ([facility]) Heart rate 73 /min 73 /min [facility] ([facility]) Diastolic blood pressure 75 mm[Hg] 75 mm[Hg] [facility] ([facility]) Systolic blood pressure 110 mm[Hg] 110 mm[Hg] M EDENT ([facility]) Body height 62 [in_i] 62 [in_i] [facility] ([facility]) 5'2" Body weight 78.926 kg 78.926 kg [facility] ([facility]) Body weight 174.00 [lb_av] 174.00 [lb_av] [facility] T ([facility]) Body temperature 98.0 [degF] 98.0 [degF] [facility] ([facility]) Heart rate 75 /min 75 /min [facility] ([facility]) Diastolic blood pressure 80 mm[Hg] 80 mm[Hg] [facility] ([facility]) Systolic blood pressure 112 mm[Hg] 112 mm[Hg] M EDENT ([facility]) Body surface area 1.80 m2 1.80 m2 [facility] Body mass index (BMI) [Ratio] 31.8 kg/m2 31.8 k g/m2 [facility] ([facility]) Body surface area 1.85 m2 1.85 m2 [facility] Body mass index (BMI) [Ratio] 33.8 kg/m2 33.8 k g/m2 [facility] ([facility]) Body height 62 [in_i] 62 [in_i] [facility] 5'2" Body weight 83.916 kg 83.916 kg [facility] ([facility]) Body weight 185.00 [lb_av] 185.00 [lb_av] MED[facility] T ([facility]) Body temperature 98.3 [degF] 98.3 [degF] [facility] Heart rate 73 /min 73 /min [facility] ([facility]) Diastolic blood pressure 85 mm[Hg] 85 mm[Hg] [facility] ([facility]) Systolic blood pressure 125 mm[Hg] 125 mm[Hg] [facility] Body weight 83.179 kg 83.[address] [facility] Body mass index (BMI) [Ratio] 34.1 kg/m2 34.1 k g/m2 [facility] ([facility], ) Body weight 183.38 [lb_av] 183.38 [lb_av] [facility] T ([facility], ) Body height 61.5 [in_i] 61.5 [in_i] [facility] ([facility], ) 5'1.50" Body temperature 97.1 [degF] 97.1 [degF] [facility] ([facility], ) Oxygen saturation in Arterial blood by Pulse oximetry 99 % 99 % [facility] ([facility]) Heart rate 76 /min 76 /min [facility] ([facility]) Diastolic blood pressure 82 mm[Hg] 82 mm[Hg] [facility] ([facility]) Systolic blood pressure 126 mm[Hg] 126 mm[Hg] [facility] ([facility]) Body mass index (BMI) [Ratio] 34.0 kg/m2 34.0 k g/m2 [facility] ([facility]) Body weight 180.00 [lb_av] 180.00 [lb_av] MED[facility] T ([facility]) Body height 61 [in_i] 61 [in_i] [facility] ([facility]) 5'1" Body weight 88.962 kg 88.962 kg [facility] ([facility]) Body mass index (BMI) [Ratio] 36.5 kg/m2 36.5 k g/m2 [facility] ([facility]) Body weight 196.12 [lb_av] 196.12 [lb_av] [facility] Body height 61.5 [in_i] 61.5 [in_i] [facility] ([facility]) 5'1.50" Oxygen saturation in Arterial blood by Pulse oximetry 98 % 98 % [facility] ([facility]) Heart rate 99 /min 99 /min [facility] ([facility]) Diastolic blood pressure 72 mm[Hg] 72 mm[Hg] [facility] ([facility]) Systolic blood pressure 124 mm[Hg] 124 mm[Hg] [facility] ([facility]) Body surface area 1.88 m2 1.88 m2 [facility] ([facility]) Body mass index (BMI) [Ratio] 35.3 kg/m2 35.3 k g/m2 [facility] ([facility]) Body height 62 [in_i] 62 [in_i] [facility] ([facility]) 5'2" Body weight 87.545 kg 87.545 kg [facility] ([facility]) Body weight 193.00 [lb_av] 193.00 [lb_av] MED[facility] T ([facility]) Heart rate 70 /min 70 /min [facility] ([facility]) Diastolic blood pressure 82 mm[Hg] 82 mm[Hg] [facility] ([facility]) Systolic blood pressure 120 mm[Hg] 120 mm[Hg] M EDENT ([facility]) Diastolic blood pressure 70 mm[Hg] 70 mm[Hg] [facility] Systolic blood pressure 117 mm[Hg] 117 mm[Hg] e CW1 ([facility]) Body temperature 99.2 [degF] 99.2 [degF] eCW1 ( [facility]) Respiratory rate 16 /min 16 /min eCW1 ([facility]) Heart rate 68 /min 68 /min eCW1 ([facility]) Body mass index (BMI) [Ratio] 35.84 kg/m2 35.84 kg/m2 eCW1 ([facility]) Body height 62 [in_us] 62 [in_us] eCW1 ([facility]) Body weight Measured 196 [lb_av] 196 [lb_av] eC W1 ([facility]) Body surface area 1.88 m2 1.88 m2 [facility] ([facility]) Body mass index (BMI) [Ratio] 35.3 kg/m2 35.3 k g/m2 [facility] ([facility]) Body height 62 [in_i] 62 [in_i] [facility] ([facility]) 5'2" Body weight 87.545 kg 87.545 kg [facility] ([facility]) Body weight 193.00 [lb_av] 193.00 [lb_av] MED[facility] T ([facility]) Heart rate 69 /min 69 /min [facility] ([facility]) Diastolic blood pressure 77 mm[Hg] 77 mm[Hg] [facility] ([facility]) Systolic blood pressure 138 mm[Hg] 138 mm[Hg] M EDENT ([facility]) Diastolic blood pressure 90 mm[Hg] 90 mm[Hg] eCW1 [facility]) Systolic blood pressure 160 mm[Hg] 160 mm[Hg] e CW1 ([facility]) Body temperature [degF] eCW1 ([facility]) Respiratory rate 16 /min 16 /min eCW1 ([facility]) Heart rate 76 /min 76 /min eCW1 ([facility]) Body mass index (BMI) [Ratio] 36.21 kg/m2 36.21 kg/m2 eCW1 ([facility]) Body height 62 [in_us] 62 [in_us] eCW1 ([facility]) Body weight Measured 198 [lb_av] 198 [lb_av] eC W1 ([facility]) Diastolic blood pressure 54 mm[Hg] 54 mm[Hg] eCW1 ([facility]) Systolic blood pressure 122 mm[Hg] 122 mm[Hg] e CW1 ([facility]) Body mass index (BMI) [Ratio] 37.56 kg/m2 37.56 kg/m2 eCW1 ([facility]) Body height 61 [in_us] 61 [in_us] eCW1 ([facility]) Body weight Measured 198.8 [lb_av] 198.8 [lb_av ] eCW1 ([facility]) Body surface area 1.93 m2 1.93 m2 [facility] ([facility]) Body mass index (BMI) [Ratio] 37.3 kg/m2 37.3 k g/m2 [facility] ([facility]) Body height 62 [in_i] 62 [in_i] [facility] ([facility]) 5'2" Body weight 92.534 kg 92.534 kg [facility] ([facility]) Body weight 204.00 [lb_av] 204.00 [lb_av] MEDEN T ([facility]) Heart rate 80 /min 80 /min [facility] ([facility]) Diastolic blood pressure 80 mm[Hg] 80 mm[Hg] [facility] ([facility]) Systolic blood pressure 115 mm[Hg] 115 mm[Hg] M EDENT ([facility]) Body surface area 1.93 m2 1.93 m2 [facility] ([facility]) Body mass index (BMI) [Ratio] 37.5 kg/m2 37.5 k g/m2 [facility] ([facility]) Body height 62 [in_i] 62 [in_i] [facility] ([facility]) 5'2" Body weight 92.988 kg 92.988 kg [facility] ([facility]) Body weight 205.00 [lb_av] 205.00 [lb_av] MED[facility] T ([facility]) Diastolic blood pressure 78 mm[Hg] 78 mm[Hg] [facility] ([facility]) Systolic blood pressure 112 mm[Hg] 112 mm[Hg] M EDENT ([facility]) Body surface area 1.93 m2 1.93 m2 [facility] ([facility]) Body mass index (BMI) [Ratio] 37.3 kg/m2 37.3 k g/m2 [facility] Body height 62 [in_i] 62 [in_i] [facility] ([facility]) 5'2" Body weight 92.534 kg 92.534 kg [facility] ([facility]) Body weight 204.00 [lb_av] 204.00 [lb_av] MED[facility] T ([facility]) Heart rate 72 /min 72 /min [facility] ([facility]) Diastolic blood pressure 79 mm[Hg] 79 mm[Hg] [facility] ([facility]) Systolic blood pressure 132 mm[Hg] 132 mm[Hg] M EDENT ([facility]) Body surface area 1.93 m2 1.93 m2 [facility] Body mass index (BMI) [Ratio] 37.3 kg/m2 37.3 k g/m2 [facility] ([facility]) Body height 62 [in_i] 62 [in_i] [facility] ([facility]) 5'2" Body weight 92.534 kg 92.534 kg [facility] ([facility]) Body weight 204.00 [lb_av] 204.00 [lb_av] MED[facility] T ([facility]) Heart rate 76 /min 76 /min [facility] ([facility]) Diastolic blood pressure 67 mm[Hg] 67 mm[Hg] [facility] ([facility]) Systolic blood pressure 146 mm[Hg] 146 mm[Hg] M EDENT ([facility]) Body surface area 1.93 m2 1.[address] [facility] Body mass index (BMI) [Ratio] 37.5 kg/m2 37.5 k g/m2 [facility]) Body height 62 [in_i] 62 [in_i] [facility]) 5'2" Body weight 92.988 kg 92.988 kg [facility] ([facility]) Body weight 205.00 [lb_av] 205.00 [lb_av] MEDEN T ([facility]) Heart rate 60 /min 60 /min [facility] Diastolic blood pressure 60 mm[Hg] 60 mm[Hg] [facility] ([facility]) Systolic blood pressure 100 mm[Hg] 100 mm[Hg] [facility] Patient Treatment Plan of Care Planned Activity Planned Date Details Description Data Source (s) Ciprofloxacin 500 MG Oral Tablet [Cipro] 10/13/2019 12:00:00 AM EST [facility] Fluconazole 150 MG Oral Tablet 10/13/2019 12:00:00 AM EST eCW1 ([facility])
[2020-09-18 07:06] LABS: RSV AMPLIFICATION NEGATIVE (NEGATIVE)
== END 2020-09-18 06:31 | disposition home or self-care (01) ==
LOC: M ED 03:13
DX: R51.9 Headache, unspecified (principal); R11.2 Nausea with vomiting, unspecified; M79.10 Myalgia, unspecified site; J02.9 Acute pharyngitis, unspecified; Z20.822 Contact with and (suspected) exposure to COVID-19; F41.9 Anxiety disorder, unspecified; Z79.899 Other long term (current) drug therapy; Z79.84 Long term (current) use of oral hypoglycemic drugs; Z88.8 Allergy status to other drugs, medicaments and biological substances

== ENCOUNTER → 2025-04-23 | Outpatient (RCR) ==
[~2025-04-23] MED LIST changes: +LETR2.5T2; +METF-838
== END ==
LOC: M EMPSKH 04-19 07:22
PROVIDERS: ATTEND Family Medicine
DX: Z20.828 Contact with and (suspected) exposure to other viral communicable diseases (principal)